=== PATIENT | female | born 1955 | race Caucasian/White ===

== ENCOUNTER 2016-08-16 10:21 | Inpatient (IN) ==
[2016-08-16] MEDS ORDERED: TYLENOL PO PRN (14:05)
--- NOTE | 2016-08-16 14:28 | Diag Imaging Result Doc PS360 ---
EXAM: CHEST-PORTABLE HISTORY: sob TECHNIQUE: AP portable at 1415 COMMENT: There are two nodules in the right upper lobe probably representing granulomata. There are no previous studies. There is no evidence of acute cardiac or pulmonary disease. IMPRESSION: No acute abnormality. Electronically signed by Skyler Alexander 08/16/2016 2:26 PM
--- NOTE | 2016-08-16 15:10 | Diag Imaging Result Doc PS360 ---
EXAM: US RENAL 2 (RETROPER) COMPLETE HISTORY: concha TECHNIQUE: Transabdominal COMMENT: The right kidney is 11 x 5.6 x 6.9 cm the left kidney 11.3 x 5.3 x 6.1 cm. There is no evidence of hydronephrosis masses or stones. There is a centimeter-sized cyst in the left kidney towards the lower pole laterally. The bladder is unremarkable and contains a Verduzco catheter. IMPRESSION: No evidence of obstructive uropathy. Electronically signed by Skyler Alexander 08/16/2016 3:08 PM
[2016-08-16 15:53] LABS: BASO% 0.8 % (0.0-0.8); EOS# 0.12 X1000 (0.0-0.7); EOS% 5.1 % (0.0-10.0); HEMATOCRIT 31.2 % (37.0-47.0); HEMOGLOBIN 11.8 g/dL (12.0-16.0); IMM GRAN# 0.06 X1000 (0.0-0.04); IMM GRAN% 2.5 % (0.0-0.5); LYMPH# 0.51 X1000 (1.2-3.4); LYMPH% 21.5 % (20.5-51.1); MANUAL DIFF NEEDED? NO; MCH 33.2 PG (27-31); MCHC 37.8 g/dL (33-37); MCV 87.9 FL (81-99); MONO# 0.26 X1000 (0.11-0.59); MPV 9.2 FL (7.4-10.4); NEUT% 59.1 % (42.2-75.2); PLT 189 X1000 (130-400); RBC 3.55 XMIL (4.2-5.4)
[2016-08-16 16:03] LABS: INR 1.16; PROTIME 12.3 Seconds (9.2-11.7); PTT 29.8 Seconds (22.0-36.0)
[2016-08-16 16:10] LABS: ALBUMIN 3.2 g/dL (3.5-5.0); CALCIUM 7.2 mg/dL (8.8-10.2); MAGNESIUM 1.3 mg/dL (1.5-2.7); POTASSIUM 3.1 mmol/L (3.5-5.1); TOTAL BILIRUBIN 0.96 mg/dL (0.20-1.00); TOTAL PROTEIN 5.8 g/dL (6.3-8.3)
[2016-08-16] MEDS ORDERED: MAGNESIUM SULFATE 2 GM/S.W.I. 2 GM/50 ML IVPB IV ONE (16:51)
[2016-08-16 17:17] LABS: IRON SATURATION 12 %; TIBC 240 ug/dL; TOTAL IRON 28 ug/dL (49-151); UNBOUND IRON 212 ug/dL (112-346)
[2016-08-16 17:59] LABS: FERRITIN 3386 ng/mL (13-150)
[2016-08-16] MEDS: NS 1,000 ML IV SCH ×3 (18:23→22:57)
[2016-08-16 18:32] LABS: AMYLASE 27 U/L (20-200); LIPASE 20 U/L (13-60)
--- NOTE | 2016-08-16 18:33 | CONSULTATION ---
DATE OF CONSULTATION: 08/16/2016 REASON FOR CONSULTATION: Acute kidney injury. HISTORY OF PRESENT ILLNESS: Ms. Serrato is a 61-year-old, white female with a history of reflux and hypertension. She cannot remember her blood pressure medication but they think it is amlodipine. She also takes omeprazole and occasional Tylenol. She states that for the last several weeks she has had severe sinusitis with foul tasting discharge. She has a nocturnal cough associated with it. In order to treat this she has been receiving amoxicillin. She had a 3 week prescription but she is really only taking it halfheartedly. She does not really follow the instructions. She took her last dose on Saturday. She states that since Saturday she has had essentially no urine output. She has also had increasing abdominal discomfort especially in the subcostal region bilaterally. The pain waxes and wanes in severity but is tender to touch. Ultimately she went to the emergency room at [facility] today because of her abdominal pain. She has not had nausea or vomiting and she has been able to eat. She has also had constipation. No other voiding symptoms and no hematuria. She has no hemoptysis with her cough. No shortness of breath, PND, orthopnea, etc. No swelling, no arthralgias, no rashes. PAST MEDICAL HISTORY: As above. HOME MEDICATIONS: As above. ALLERGIES: None. SOCIAL HISTORY: She is a half pack-a-day smoker and has been for 50 years. She uses alcohol "socially." No other substance abuse. FAMILY HISTORY: Her sister does have chronic kidney disease stage 3 but no ESRD in the family. No vasculitis known in the family. REVIEW OF SYSTEMS: Obtained and otherwise negative. PHYSICAL EXAMINATION: Vital Signs: Blood pressure 143/62, heart rate 85, respirations 14, temperature 99.8 degrees. General: She is a middle-aged woman, tearful, anxious but in no acute distress. Skin: Warm and dry without rashes. HEENT: Conjunctivae are pink. Pupils are equal. Oropharynx is clear with normal tongue, normal dentition. Neck: Supple. Trachea is midline. Neck veins are modestly distended. No obvious hepatojugular reflux. Heart: Regular without rubs or gallops. Lungs: Equal breath sounds. No crackles or wheezes. Abdomen: Mildly distended diffusely and mildly tender in the subcostal region. Soft. No guarding. bowel sounds are present. Extremities: No edema, clubbing, or cyanosis. Intact distal pulses. Neurologic Examination: Nonfocal. LABORATORY DATA: Sodium 126, potassium 3.1, chloride 86, bicarbonate 16, BUN 54, creatinine 7.6. Calcium 7.2, magnesium 1.3. AST 879, ALT 1712, alkaline phosphatase 143, albumin 3.2. INR 1.16. Hemoglobin 11.8, white blood cell count 2.37, platelets 189,000. IMPRESSION: Acute kidney injury in the context of acute hepatocellular injury attended by metabolic acidosis. She does not appear particularly volume contracted at this time. She has had essentially no urine output since she has been here. Her urinalysis performed at [facility] had 2+ protein and 3+ blood. I counseled the patient that she has severe acute kidney injury. We will give fluids overnight but if she does not have improvement in her urine output and her labs, then she will require hemodialysis. We will hold her NPO tonight in anticipation of tunnel catheter placement tomorrow. Complete complements, serologies, etc. It is very likely she will require a renal biopsy for diagnosis. Certainly she could have interstitial nephritis. I do not know the connection between that and her liver disease. I believe her abdominal pain is likely related to capsular stretch with her acutely swollen and steatotic liver. cc: Jonathan Jordan MD
[2016-08-16] MEDS: MORPHINE IV PRN ×2 (18:34→22:53)
[2016-08-16] MEDS: PEPCID IV SCH (18:38)
[2016-08-16 18:58] LABS: URINE MICRO REVIEW NEEDED? NO; URINE SOURCE CATH
[2016-08-16 19:01] LABS: BILIRUBIN URINE NEGATIVE (NEGATIVE); BLOOD URINE LARGE (NEGATIVE); COLOR YELLOW; GLUCOSE URINE NEGATIVE (NEGATIVE); LEUKOCYTES URINE LARGE (NEGATIVE); NITRITE URINE NEGATIVE (NEGATIVE); PROTEIN URINE 100 mg/dL (NEGATIVE); SP GRAVITY URINE 1.011; TURBIDITY URINE HAZY (CLEAR); UR EPITHELIAL CELLS <10 /HPF (<10); URINE BACTERIA 4+ /HPF; URINE CULTURE NEEDED? YES; URINE RBC TNTC /HPF (<10); URINE WBC TNTC /HPF (<10); UROBILINOGEN URINE NORMAL (NORMAL)
--- NOTE | 2016-08-16 19:20 | HISTORY AND PHYSICAL ---
PRIMARY CARE PROVIDER: Dr. Manolo Ling. CHIEF COMPLAINT: Unable to void or have a bowel movement for about 5 days and severe abdominal pain for 2 days. HISTORY OF PRESENT ILLNESS: Ms. Scarlet Serrato is a 61-year-old female with a minimal medical history, only consistent of hypertension, GERD, depression and a sinus infection for 2 months. She states she has been taking amoxicillin for about a week. Still complains of severe headache. Her main concern as she presented to [facility] with complaints of abdominal pain for 2 days and no urine or bowel movements for 5 days. She states that on Saturday she had diarrhea but no bowel movements since then. She started noticing that she was not having urine output. She states maybe a 3/4 cup worth of urine since Saturday. Her right upper quadrant of the abdomen has been hurting for about 2-3 days. She definitely has CVA tenderness. Radiates to the right lower quadrant. She denies any nausea or vomiting. She has stated that she has had subjective fever for about 1 day and no chills. She attempted to keep herself hydrated by drinking 4 bottles of water per day and drinking some milk. She does pass gas and she is belching. She states she has had actually a 20 pounds weight loss since April after stopping her hormones. She started having muscle cramps that started today. Upon evaluation by [facility] she was found to have a significant acute kidney injury with a creatinine of 7.6 and a BUN of 59. She also had elevated AST and ALT of 1396 and 1938. They performed a CT and per report found in the chart it showed dilated gallbladder, fatty liver, mild pre nephric stranding on the right kidney. She was transferred here for further evaluation by Nephrology. Will also ask Gastroenterology to see the patient secondary to the elevated liver enzymes. Dr. Jordan will follow her for her kidney failure. We will consult Dr. John for her leukopenia. PAST MEDICAL HISTORY: Hypertension, GERD, depression, a sinus infection for 2 months. SURGICAL HISTORY: Hysterectomy. SOCIAL HISTORY: Half pack per day for 50 years smoker. Drinks alcohol about once every 2 weeks. She lives at home alone and denies any illicit drug use. FAMILY HISTORY: Father with lung cancer. Brother with colon cancer. Grandfather with stomach cancer. Uncle with brain cancer. She has a sister with pre diabetes, CKD stage [address] Jordan and hypothyroidism. She has another sister that has a pacemaker and hypothyroidism. REVIEW OF SYSTEMS: Fourteen point review of systems were complete and all were negative except for those mentioned in above HPI. ALLERGIES: No known drug allergies. HOME MEDICATIONS: Not listed although she states that she has been taking Goody powders for her headaches. PHYSICAL EXAMINATION: VITAL SIGNS: Temperature 99.8 degrees, heart rate 81, respiratory rate 20, blood pressure 143/62, O2 saturation 97% on room air. GENERAL: Ms. Scarlet Serrato is a 61-year-old female who is very emotional and teary but is able answer all questions appropriately. HEENT: Atraumatic, normocephalic. Pupils equal, round, reactive to light. Extraocular movements intact. She has some mild tenderness underneath her eyes with palpation. Mucous membranes are very dry. NECK: No JVD or carotid bruits. CARDIOVASCULAR: S1, S2. Regular rate and rhythm. No rubs, gallops, or murmurs. PULMONARY: Clear to auscultation. Bilateral breath sounds. No accessory muscle use or work of breathing noted. GI: Distended, semi firm, tender in the right upper to lower quadrant and right CVA tenderness. Very hypoactive bowel sounds. : Verduzco catheter with minimal dark clear urine output. Bladder not palpable. EXTREMITIES: No edema noted. +2 dorsalis and radial pulses. SKIN: Warm, dry, intact. NEUROLOGIC: Alert and oriented x4. Moves all extremities equally. LABORATORY DATA: At the outside hospital she had ABGs performed, pH 7.39, pCO2 31, PO2 70, bicarb 18, base excess negative 5.6 with a saturation of 93%. At the outside hospital her CBC revealed white blood cell 1.9, hemoglobin and hematocrit 12 and 33, platelet count 183, 000. At the outside hospital her BMP revealed a sodium 141, potassium 2.8, BUN 59, creatinine 7.6, glucose 111. At the outside hospital her total bilirubin was 1.3, her AST was 1396, her ALT was 1938. Labs repeated upon admission revealed white blood cell 2.3. Hemoglobin 11.8, hematocrit 31.2, platelet count 189,000. INR is 1.16. PTT is 29.8. Sodium 126, potassium 3.1 BUN 54, creatinine 7.6, glucose 84, calcium 7.2 magnesium 1.3. Iron is 28. Total iron binding capacity is 240, percent saturation 12 and saturated iron is 212. Ferritin level is 3386. Total bilirubin 0.96. AST is 879, ALT is 1712, alkaline phosphatase is 143. CK is 44, troponins less than 0.01. Total protein is 5.8, albumin is 3.2. Vitamin B12 was greater than 2000 and folate is 13.4. Still awaiting urinalysis and other urine studies. IMAGING: There was an abdominal pelvic CT without contrast at the outside hospital which revealed dilated gallbladder, fatty liver, mild pre nephric stranding on the right kidney. Imaging performed here: Chest x-ray, no acute abnormalities. Renal ultrasound : No evidence of obstructive uropathy. No evidence of hydronephrosis, masses or stones. There is a cm sized cyst in the left kidney towards the lower pole laterally. Bladder is unremarkable. EKG pending. Full abdominal ultrasound pending. ASSESSMENT AND PLAN: 1. Acute kidney injury with a creatinine of 7.6 at the outside hospital and repeated here continues to be 7.6, BUN 54. Apparently she has not had any urine output for 5 days. We will do aggressive IV fluid hydration. Dr. Jordan has been consulted. 2. Acute abdominal pain for 2 days with dilated gallbladder on the CT scan at the outside hospital and significant transaminitis with the right upper quadrant abdominal pain. GI has been consulted. Amylase, lipase has been ordered. Acetaminophen level ordered. Also a hepatitis profile has been ordered. 3. Transaminitis. See number 2. Will continue with IVF hydration. 4. Hypertension. Will hold off on medications for now. 5. Gastroesophageal reflux disease. Will do IV Pepcid. 6. Depression. No medications for now. 7. Leukopenia. Will consult Dr. John with Hematology for further recommendations and workup. 8. Iron deficiency anemia. Mild in nature with a hemoglobin of 12, hematocrit 33. Once taking in p.o. we will start on oral iron supplementation. 9. Sinus infection for 2 months. She just recently finished amoxicillin 1 week course. She stated that she had only 1 dose left. 10. Complains of migraine headache 10/10 pain. With her sinus congestion we will order morphine p.r.n. for her abdominal and her migraine. Also will add a head CT to evaluate sinuses. 11. Deep venous thrombosis prophylaxis will be SCDs and VIDAL. 12. Gastrointestinal prophylaxis will be Pepcid IV q.12 hours 20 mg. 13. Hypomagnesemia. Magnesium was 1.3. We will give 2 g of magnesium IV x1. 14. Hyponatremia likely secondary to severe dehydration. We will give normal saline at 150 an hour. 15. Hypokalemia. Given her acute kidney injury will hold off on potassium supplementation for now and will follow with EKG. She has had no complaints of palpitations. Dictated by MELITON Brenner for Scott Lutz MD cc: MELITON Brenner MD Dr. Putman MTDD
--- NOTE | 2016-08-16 19:50 | CONSULTATION ---
DATE OF CONSULTATION: 08/16/2016 HISTORY OF PRESENT ILLNESS: This is a 61-year-old female followed by Dr. Jordan who has had worsening of her renal function over the last few days. She has been in the hospital now with headache, electrolyte abnormalities, volume overload. She states she has had a sinus infection for the last 5 weeks. She has been taking antibiotics and a large amount of Goody powder for this at home. She is uninsured so has been unable to see a doctor. MEDICAL HISTORY: High blood pressure, COPD. PAST SURGICAL HISTORY: She had a hysterectomy. No vascular procedures. She denies anticoagulation. SOCIAL HISTORY: She smokes half pack a day. Occasional alcohol. FAMILY HISTORY: She has a brother with colon cancer. Father with lung cancer. REVIEW OF SYSTEMS: Ten point negative except for what is mentioned in the HPI. PHYSICAL EXAMINATION: Vital Signs: Temperature is 99.8 degrees, pulse in 70s to 80s, blood pressure 143/60, O2 saturation 97% on room air. General: She is alert, obviously uncomfortable. She said she has a headache. Neurologic: She is intact. Cardiovascular: Normal rate, regular rhythm. Pulmonary: No increased work of breathing. Abdomen: Distended and mildly tender throughout but obviously no peritonitis. Integumentary: Warm, dry without jaundice. No rashes. Extremities: Trace lower extremity edema. Her upper extremities are well- perfused without edema. Skin: No scars. No cervical masses on head and neck examination. LABS: hematocrit 31, platelets 189,000. INR is 1.16. Sodium is low at 136, potassium low at 3.1, creatinine 7.6, glucose is 84, bilirubin 0.96. AST elevated at 879. ALT 1712. Alkaline phosphatase 143. Troponins were normal. Renal ultrasound shows no evidence of obstruction. Chest x-ray: No acute abnormality. ASSESSMENT/PLAN: A 61-year-old female with multiple medical issues. She has acute on chronic renal dysfunction, elevated transaminases, leukopenia. She is undergoing extensive medical workup at this point. Dr. Jordan is concerned that she will need long-term dialysis and asked me to place a tunnel catheter if her labs do not look better tomorrow. I will tentatively post her. I have discussed risks, benefits, alternatives including bleeding, infection, damage to vascular structures surrounding her pneumothorax. She consents to tunnel catheter placement should Dr. Jordan decide this is necessary tomorrow. I will defer further medical management to hospitalist. Dr. John has been consulted and Dr. Harp regarding her liver enzymes. We will follow up on this workup. cc: Celi Watt MD [facility]
[2016-08-16 20:15] LABS: UR CREAT RANDOM 95.3 mg/dL (11-20)
--- NOTE | 2016-08-16 20:54 | Diag Imaging Result Doc PS360 ---
EXAM: PARANASAL SINUSES TECHNIQUE: INDICATION: migraine; sinus infection x 2 months COMPARISON: None. FINDINGS: There is extensive right maxillary and right ethmoid sinus mucosal disease with subtotal opacification. There is somewhat milder mucosal thickening involving the right frontal sinus and much milder mucosal thickening involving the right sphenoid sinus and floor of the left maxillary sinus. The right ostiomeatal unit is completely obstructed by thickened mucosa. The left ostiomeatal unit is patent. The mastoid air cells are clear. There are degenerative changes at the right TMJ. The bony structures are grossly intact. IMPRESSION: 1.Extensive paranasal sinus mucosal disease, mainly involving the right maxillary sinus and right ethmoid sinuses, which exhibit subtotal opacification. 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 Electronically signed by Jesse Tyler 08/16/2016 8:51 PM
[2016-08-16] MEDS ORDERED: HEPARIN SUBQ SCH (21:00)
[2016-08-17] MEDS: MORPHINE IV PRN ×6 (02:01→21:54)
[2016-08-17] MEDS: NS 1,000 ML IV SCH (05:02)
--- NOTE | 2016-08-17 05:04 | EKG Report ---
Test Performed on : 08/16/2016 3:04:29 PM Test Reason : chest pain Blood Pressure : / mmHG Vent. Rate : 077 BPM Atrial Rate : 077 BPM P-R Int : 172 ms QRS Dur : 084 ms QT Int : 430 ms P-R-T Axes : 061 026 037 degrees QTc Int : 486 ms Normal sinus rhythm. Prolonged QT Abnormal ECG No previous ECGs available Confirmed by Michell Olmstead MD ([id number]) on 08/17/2016 1:01:51 PM
[2016-08-17] MEDS: PEPCID IV SCH ×3 (05:54→17:15)
[2016-08-17] MEDS: SODIUM CHLORIDE 0.9% INJ SCH ×2 (05:54→17:12)
[2016-08-17 06:22] LABS: BASO% 0.6 % (0.0-0.8); EOS# 0.15 X1000 (0.0-0.7); EOS% 4.8 % (0.0-10.0); HEMATOCRIT 30.8 % (37.0-47.0); HEMOGLOBIN 11.5 g/dL (12.0-16.0); IMM GRAN# 0.05 X1000 (0.0-0.04); IMM GRAN% 1.6 % (0.0-0.5); LYMPH# 0.77 X1000 (1.2-3.4); LYMPH% 24.8 % (20.5-51.1); MANUAL DIFF NEEDED? YES; MCH 33.2 PG (27-31); MCHC 37.3 g/dL (33-37); MONO# 0.35 X1000 (0.11-0.59); MONO% 11.3 % (1.7-9.3); MPV 9.5 FL (7.4-10.4); NEUT% 56.9 % (42.2-75.2); PLT 204 X1000 (130-400); RBC 3.46 XMIL (4.2-5.4)
[2016-08-17 06:34] LABS: INR 1.06; PROTIME 11.2 Seconds (9.2-11.7)
[2016-08-17 06:45] LABS: ALBUMIN 3.1 g/dL (3.5-5.0); CALCIUM 7.1 mg/dL (8.8-10.2); MAGNESIUM 2.2 mg/dL (1.5-2.7); POTASSIUM 3.2 mmol/L (3.5-5.1); TOTAL BILIRUBIN 0.97 mg/dL (0.20-1.00); TOTAL PROTEIN 5.7 g/dL (6.3-8.3)
[2016-08-17 06:46] LABS: ALBUMIN 2.9 g/dL (3.5-5.0); CALCIUM 7.1 mg/dL (8.8-10.2)
[2016-08-17 06:49] LABS: FREE T4 0.95 ng/dL (0.93-1.70)
[2016-08-17 07:06] LABS: BANDS 2 % (0-1); EOS 6 % (1-10); LYMPHS 36 % (21-51); MONO 7 % (1-9)
[2016-08-17] MEDS ORDERED: NS 2,000 ML MISC PRN (07:53)
[2016-08-17] MEDS ORDERED: PRILOSEC PO SCH (09:00)
--- NOTE | 2016-08-17 09:05 | Diag Imaging Result Doc PS360 ---
EXAM: US ABDOMEN-COMPLETE HISTORY: abnormal liver enzymes TECHNIQUE: Abdominal ultrasound COMMENT: The study is suboptimal due to the patient's body habitus. The liver is hyperechoic. The gallbladder is clear and nontender. There is no evidence of biliary dilatation, the common bile duct measuring 4 mm. The pancreas is obscured. There is antegrade flow in the portal vein. The kidneys are without evidence of hydronephrosis or mass. There is a cyst present on the left in the upper pole region measuring a centimeter to 11 mm in size. The spleen is not enlarged. There are no abnormal fluid collections. The aorta and inferior vena cava are normal in appearance where there are visible. IMPRESSION: Hepatic steatosis. Left renal cyst. Electronically signed by Skyler Alexander 08/17/2016 9:03 AM
[2016-08-17] MEDS ORDERED: NS 2,000 ML ONE (09:18)
[2016-08-17] MEDS ORDERED: NEXIUM IV ONE (09:35)
[2016-08-17] MEDS ORDERED: SODIUM CHLORIDE 0.9% INJ ONE (09:35)
[2016-08-17] MEDS ORDERED: TUMS PO PRN (09:40)
[2016-08-17] MEDS: ZOSYN 2.25 GM/NS 2.25 GM/50 ML IVPB IV SCH ×2 (09:49→12:13)
[2016-08-17] MEDS: CELEXA PO SCH (09:50)
[2016-08-17] MEDS: PERICOLACE PO SCH ×2 (09:53→21:19)
[2016-08-17 11:20] LABS: HEPATITIS PROFILE ACUTE SEE COMMENTS
[2016-08-17] MEDS: POTASSIUM CHLORIDE 20 MEQ/SWI 20 MEQ/100 ML IVPB IV SCH ×5 (11:34→18:11)
[2016-08-17] MEDS ORDERED: HEPARIN ONE (11:46)
[2016-08-17] MEDS ORDERED: XYLOCAINE 1%/EPI 1:100,000 ONE (11:46)
[2016-08-17] MEDS ORDERED: NS 250 ML ONE (11:47)
[2016-08-17] MEDS ORDERED: AMIDATE ONE (11:49)
[2016-08-17] MEDS ORDERED: QUELICIN (DOSE) ONE (11:50)
[2016-08-17] MEDS ORDERED: XYLOCAINE-MPF 2% ONE (11:50)
--- NOTE | 2016-08-17 12:06 | PROGRESS NOTE ---
DATE: 08/17/2016 SUBJECTIVE: Patient reports she is still not making too much urine and abdominal pain is better, although sometimes it hurts in the right upper quadrant. Denies any fever, chills, diarrhea. OBJECTIVE: Vital Signs: Temperature 98.1 degrees, heart rate 71, respiratory rate 18, blood pressure 124/64, O2 saturation 100% on room air. General: This is a chronically ill-looking, frail, and looking older than her age, 61-year-old female lying in bed in no acute distress. HEENT: Head is normocephalic and atraumatic. Anicteric sclerae and pale conjunctivae. Mucous membranes moist. Neck: Supple. No JVD noted. No carotid bruits. No lymphadenopathy. No thyromegaly. Cardiovascular: S1 and S2 heard. No murmurs, gallops, or rubs. Regular rate and rhythm. Respiratory: Clear bilaterally to auscultation. No work of breathing or using accessory muscles. Abdomen: A little bit distended and mildly tender to palpation in the right lower quadrant and the right upper quadrant. There are no signs of peritoneal irritation. Bowel sounds present. No organomegaly. Extremities: No clubbing, cyanosis, or edema. Peripheral pulses present in both legs. Neurological: Patient is alert and oriented x3. Able to move her extremities. Cranial nerves 2-12 grossly normal. LABORATORY DATA: White cell count 3.11, hemoglobin 11.5, hematocrit 30.8, platelets 204,000. Sodium 124, potassium 3.0, chloride 88, bicarbonate 15, BUN 57, creatinine 7.4, ALT 479, AST 1289, with albumin 2.9. ASSESSMENT AND PLAN: 1. Acute kidney injury. Creatinine today in comparison with yesterday is 7.4, which is basically unremarkable. Patient is still anuric, not making any more urine since yesterday, even though she is on IV fluids. Dr. Jordan had evaluated this patient yesterday and the plan initially was to place a tunneled catheter for dialysis if there is no change in renal function, which is happening now. Dr. Watt has been consulted and hopefully that IV access will be placed today. 2. Transaminitis. Yesterday, besides the renal problem, the patient was found to have a very elevated transaminase of about 1000 ALT and also an 800 AST. The hepatitis profile is still pending and the transaminases are getting better, but are still higher. We are checking lipase and amylase, and those are normal. Acetaminophen level is also normal. Gastroenterology has been consulted and awaiting further input. 3. Hypertension. In the setting of severe transaminitis and acute kidney injury , would prefer to hold all antihypertensive medication right now. 4. Gastroesophageal reflux disease. We will give Pepcid. 5. Depression. Patient is on home medications, now. 6. Leukopenia. Dr. John from Hematology-Oncology has been consulted, in any case the white cell count has increased today. Will follow recommendations. 7. Sinusitis. Patient has been started on IV antibiotics, in this case Zosyn. The CT done here confirmed that diagnosis. 8. Deep vein thrombosis prophylaxis with SCDs. 9. Gastrointestinal prophylaxis with Pepcid. 10. Hyponatremia, probably secondary to severe dehydration. Although the patient is on normal saline, the sodium is still low. We will continue with the same management. cc: Scott Lutz MD MTDD
[2016-08-17] MEDS ORDERED: ROBINUL ONE (12:08)
[2016-08-17] MEDS ORDERED: ZOFRAN ONE (12:08)
--- NOTE | 2016-08-17 12:14 | PROGRESS NOTE ---
DATE: 08/17/2016 TIME SEEN: 714 SUBJECTIVE: Ms. Serrato is resting quietly in bed. She continues to have midepigastric abdominal discomfort. Otherwise, she denies chest pain or increased work of breathing. OBJECTIVE: Her most recent vital signs are temperature 98.1 degrees, blood pressure 124/64, heart rate 71, respirations 18. She is currently on room air. Last recorded saturation was 100%. She has had 1953 in. She has had 340 out per Verduzco catheter. LABORATORIES: Sodium 124, potassium 3, chloride 88, CO2 of 15, BUN 57, creatinine 7.4, glucose 92. Her anion gap is 22. Calcium 7.1, phosphorus 4.5, magnesium 2.2. Her white count is 3.11, hemoglobin 11.5, hematocrit 30.8, platelet count 204,000. Patient has had an MAGED screen, which is negative. Complement C3 is low. Complement C4 is low at 10. She continues to have an ANCA pending. Hepatitis profile has been drawn, pending results. She has had a glomerular basement membrane as a send-out. It has been received. Blood cultures are currently pending. PHYSICAL EXAMINATION: General: This is a 61-year-old white female. She is resting in bed. She appears chronically ill. She is in no acute distress unless she has movement. She continues with a general cough, which creates abdominal distress. HEENT: Normocephalic, atraumatic. Conjunctivae pink. She has STEFFANY. Mucous membranes are moist. Neck: Supple. Trachea midline. She has trace JVD. Cardiovascular: Regular rate and rhythm. She is without murmur or gallop. Lungs: Clear to auscultation anteriorly. Equal excursion on room air. Abdomen : Mid epigastric pain across top of her abdominal cavity. Positive bowel sounds. This remains soft. No guarding is noted. Extremities: No edema. No clubbing or cyanosis. Genitourinary: Patient is making urine per Verduzco catheter. This is dark mcallister in collar. Neurologic: She is alert and oriented x3. ASSESSMENT AND PLAN: 1. Acute kidney injury in the context of acute hepatocellular injury associated with metabolic acidosis. Patient's BUN and creatinine have continued to rise, we have discussed with the patient yesterday in regards to placement of a tunnel catheter today for access to start on dialysis. We will place her on a 3 K bath. She is to dialyze for 2 hours. We will attempt to pull 1-2 L of ultrafiltration with gentle flow. We will again plan for dialysis in the a.m. We have discussed with the patient that secondary to no urine out and low complements that are noted, that it is very likely she will require a renal biopsy, possibly as soon as Saturday morning. Patient states that she understands and is agreeable to proceed. Dr. Watt has been consulted and patient is on the surgery schedule. 2. Electrolytes. She continues with hyponatremia and hypokalemia, again with correction on dialysis. 3. Acidosis, again correction on dialysis related to #1. 4. Anemia. This is close to target. 5. Positive CT for sinusitis. This is followed by the primary care team. Patient is currently on renal-dosed Zosyn. 6. Esophageal reflux associated with acute abdominal pain for 2 days, with a dilated gallbladder on an outside CT scan. Gastroenterology is currently consulted and following. I would to thank you for allowing us to follow with this patient. Seen, data reviewed, discussed with Josr Gregory on 08/17/16. I agree with the above assessment and plan of care. rg Dictated by MELITON South for Jonathan Jordan MD cc: MELITON South MD [facility]
[2016-08-17] MEDS: MORPHINE ONE ×2 (13:11→13:20)
[2016-08-17] MEDS ORDERED: MORPHINE ONE (14:56)
--- NOTE | 2016-08-17 15:20 | OPERATIVE NOTE ---
PROCEDURE DATE: 08/17/2016 PREOPERATIVE DIAGNOSIS: End-stage renal disease. POSTOPERATIVE DIAGNOSIS: End-stage renal disease. PROCEDURES PERFORMED: 1. Ultrasound-guided right internal jugular vein PermCath placement. 2. Fluoroscopy less than 1 hour. COMPLICATIONS: None. ANESTHESIA: General. INDICATIONS: A 61-year-old female who presented with anuria, electrolyte abnormalities consistent with [id number] renal failure and Dr. Jordan planned to start dialysis and needed a tunneled catheter for access. He anticipates a prolonged recovery of her renal function. OPERATIVE FINDINGS: 1. Ultrasound examination of the right neck showed a dilated, compressible, internal jugular vein and, otherwise, normal vascular anatomy. 2. Final fluoroscopic images showed good position of the tip of the catheter in the superior vena cava-atrial junction with no kinking of the catheter along the line. No evidence of pneumothorax or postoperative complication. OPERATIVE NOTE: Risks, benefits, and alternatives discussed with the patient and family, and they consented to procedure. She was seen preoperatively and surgery to be performed was confirmed. She was taken to operating room and placed in supine position. General anesthesia induced without complication. Her bilateral neck and chest were prepped with Betadine solution and draped in usual fashion. A time-out was performed. We performed a focused ultrasound of the right neck after establishing adequate venous anatomy, we used a pink introducer needle to access the right internal jugular vein on the first pass and dark nonpulsatile venous blood was noted to return. We then threaded the wire easily and confirmed with fluoroscopy that this was on the right side of the heart. After this, I made a skin lenore. I made an incision approximately a fingerbreadth or 2 below the clavicle, tunneled the catheter to the incision in the neck. This was a 13 cm from tip- to-curve catheter dual-lumen that we then used a dilator introducer sheath was advanced using Seldinger technique under fluoroscopic guidance. We removed the dilator and the wire and threaded the catheter and peeled away the introducer. We confirmed that this was in good position. Both ports withdrew blood easily and flushed briskly. We did flush these with dilute heparinized saline. Closed the incision in the neck with a 4-0 Monocryl. I made a pursestring suture around the exit site of the catheter with a 4-0 Monocryl and secured it with a 2-0 nylon. Sterile dressing was applied. Dermabond to the incision in the neck. She tolerated the procedure well and there were no complications. cc: MD JACKELIN Santoyo
[2016-08-17] MEDS ORDERED: POTASSIUM CHLORIDE 20 MEQ/SWI 20 MEQ/100 ML IVPB IV SCH (16:30)
[2016-08-17] MEDS: PERIDEX MT SCH (21:19)
[2016-08-18] MEDS: ZOSYN 2.25 GM/NS 2.25 GM/50 ML IVPB IV SCH ×6 (00:03→23:32)
[2016-08-18] MEDS: MORPHINE IV PRN ×8 (01:05→23:51)
[2016-08-18 05:30] LABS: HEMOGLOBIN 10.8 g/dL (12.0-16.0); MCH 33.9 PG (27-31); MPV 8.8 FL (7.4-10.4); RBC 3.19 XMIL (4.2-5.4)
[2016-08-18] MEDS: SODIUM CHLORIDE 0.9% INJ SCH (05:56)
[2016-08-18] MEDS: PEPCID IV SCH ×3 (05:56→18:17)
[2016-08-18 06:04] LABS: ALBUMIN 3.1 g/dL (3.5-5.0); CALCIUM 7.6 mg/dL (8.8-10.2); POTASSIUM 3.4 mmol/L (3.5-5.1)
[2016-08-18] MEDS ORDERED: NS 2,000 ML MISC PRN (07:01)
[2016-08-18] MEDS ORDERED: HEPARIN IV PRN (07:01)
[2016-08-18] MEDS ORDERED: TIGHT: 0.2 ML/HR MISC PRN (07:01)
[2016-08-18] MEDS: PROTONIX PO SCH (07:24)
[2016-08-18] MEDS ORDERED: HEPARIN ONE (08:10)
[2016-08-18] MEDS ORDERED: NS 2,000 ML ONE (08:10)
[2016-08-18] MEDS: PERICOLACE PO SCH ×3 (08:12→21:35)
[2016-08-18] MEDS: PERIDEX MT SCH ×3 (08:13→21:36)
[2016-08-18] MEDS: CELEXA PO SCH (08:13)
--- NOTE | 2016-08-18 08:52 | CONSULTATION ---
DATE OF CONSULTATION: 08/18/2016 REQUESTING PHYSICIAN: Dr. Scott Lutz. PRIMARY CARE PROVIDER: Dr. Manolo Ling. We appreciate this consult. CHIEF COMPLAINT: Leukopenia. HISTORY OF PRESENT ILLNESS: Ms. Scarlet Serrato is a 61-year-old, female, with very little significant medical history other than hypertension, gastroesophageal reflux disease, and depression. The patient reports that she has been taking amoxicillin for approximately 1 week secondary to presumed urinary tract infection. She presented to [facility] with complaints of abdominal pain for 2 days and very little urine output with no bowel movement for 5 days. She also reported that she had right upper quadrant abdominal pain for 3 days with radiation to her right lower quadrant. The patient denied any nausea or vomiting. She also reported a questionable fever with no chills. She did not take her temperature. The patient has had a 20 pound weight loss since April after discontinuing hormone therapy. The patient was found to be in acute kidney injury at [facility] with a creatinine of 7.6 and a BUN of 59. Additionally, she had elevated AST and ALT of [address] of the abdomen revealed dilated gallbladder, fatty liver, mild pre-nephric stranding on the right kidney. The patient was transferred to [facility] for further evaluation by nephrology and gastroenterology. Dr. Jordan is currently following concerning her kidney failure. She did undergo right IJ PermCath yesterday with dialysis following. We are consulted for the patient's leukopenia with a white blood cell count of 1.9 upon presentation. PAST MEDICAL HISTORY: 1. Hypertension. 2. Gastroesophageal reflux disease. 3. Depression. 4. Sinus infection for 2 months. SURGICAL HISTORY: Hysterectomy. SOCIAL HISTORY: The patient is a pack-a-day smoker x50 years. She drinks alcohol socially approximately every 2 weeks. She does not use illicit drugs. She lives at home alone. FAMILY HISTORY: Significant for lung cancer in her father, colon cancer in her brother, stomach cancer in her grandfather, brain cancer in her uncle. No other significant oncologic or hematologic history. MEDICATIONS ON ADMISSION: Goodys Powder. ALLERGIES: The patient has no known drug allergies. REVIEW OF SYSTEMS: Complete review of systems is negative except for what is mentioned in the HPI. PHYSICAL EXAMINATION: General: Ms. Serrato is a very pleasant, 61-year-old, female, lying supine in bed in no immediate distress. Vital Signs: Temperature 98.3, blood pressure 124/56, heart rate 73, respirations 16, O2 saturation is 100% on room air. HEENT: Normocephalic, atraumatic. Mucous membranes are slightly pale and moist. Sclerae is anicteric. Extraocular movements intact. Neck: Supple. Lungs: Clear to auscultation bilaterally. Chest expansion is equal bilaterally. Cardiovascular: S1, S2 is heard without murmur, rub, or gallop. Abdomen: Soft, distended. Tender diffusely. Bowel sounds are decreased throughout. Extremities: Without clubbing, cyanosis, or edema. Dermatologic: No rashes, bruises, or lesions. Neurologic: The patient is slightly somnolent but awake and oriented x3. She has no focal deficit at this time. LABORATORY DATA: Hemoglobin 10.8, hematocrit 30.0, white blood cell count 5.07 , platelets 223,000. Sodium 126, potassium 3.4, chloride 89, CO2 of 19. BUN 40, creatinine 5.9, glucose is 92. Phos is 3.9, calcium 7.6. Urine cultures are currently pending. Blood culture show no growth at 48 hours. Bilirubin on 08/17/2016 is 0.97. AST 479. ALT 1289. Alkaline phosphatase 144, lactate dehydrogenase 315. IMAGING STUDIES: CT of the sinuses revealed extensive paranasal sinus mucosal disease with right TMJ arthropathy. ASSESSMENT AND PLAN: 1. Leukopenia with a presenting white blood cell count of 2.37 on 08/16/2016 and white blood cell count has improved to 5.07. Leukopenia is thought to be secondary to acute kidney injury which is now found to be end-stage renal disease. The patient is status post dialysis at this time and, again, has had an improvement in her white blood cell count to 5.07. We will monitor CBC. 2. Acute kidney injury, status post right IJ PermCath and dialysis yesterday. Dr. Jordan is currently following. CMP is being monitored daily. 3. Acute abdominal pain with dilated gallbladder on CT, as well as transaminitis. The patient is being followed by gastroenterology. 4. Hypertension. The patient is not currently on medications. She is currently on dialysis with a blood pressure of 124/56. 5. Gastroesophageal reflux disease, on IV Pepcid, with good control of symptoms. 6. Depression. The patient is not currently on medications. Her affect is currently bright. 7. We will follow along with you and make further recommendations pending outcomes. The above reflects a history exam, assessment and plan of Dr. John. Dictated by MELITON Cantrell for Lillian John MD cc: MELITON Cantrell MD Cesar Garcia-Rodriguez, MD I have seen and examined the patient and agree with the above note. Lillian BENÍTEZ
[2016-08-18 09:46] LABS: ALBUMIN 3.2 g/dL (3.5-5.0); DIRECT BILIRUBIN 0.6 mg/dL (0.00-0.20); TOTAL BILIRUBIN 0.84 mg/dL (0.20-1.00); TOTAL PROTEIN 5.6 g/dL (6.3-8.3)
--- NOTE | 2016-08-18 13:09 | PROGRESS NOTE ---
DATE: 08/18/2016 SUBJECTIVE: Ms. Serrato is resting quietly in bed. She is waiting to eat her breakfast. She has just received a clear liquid diet. She denies chest pain. Abdominal pain is improving slightly. No increased work of breathing. OBJECTIVE: Her most recent vital signs are temperature 98.3 degrees, blood pressure 119/54, heart rate 74, respirations 16. She is on room air. Last recorded saturation 100%. She has had 850 in. She has had 2035 out with 1.7 L on dialysis. Urine output per Verduzco catheter has improved at 30. This is more darkened yellow than mcallister colored. LABS: Sodium 126, potassium 3.4, chloride is 89, CO2 19, BUN 40, creatinine 5.9, glucose 92. Anion gap 18. Calcium 7.6, phosphorus 3.9, albumin 3.1. White count 5.07, hemoglobin 10.8, hematocrit 30, platelet count 223,000. Blood cultures are negative. Urine cultures are still pending. Preliminary indicates gram-negative rods. PHYSICAL EXAMINATION: General: This is a 61-year-old white female. She appears chronically ill. She is in no acute distress. Skin: Warm and dry. HEENT: Normocephalic, atraumatic. Conjunctivae pink. She has STEFFANY. Mucous membranes moist. Neck: Supple. Trachea midline. She has trace JVD. Cardiovascular: Regular rate and rhythm. She is without murmur or gallop. Lungs: Clear to auscultation anteriorly. Equal excursion on room air. Abdomen: Soft, nontender today. Positive bowel sounds. Genitourinary: Not inspected. Verduzco catheter is in place. Improved urine out. Extremities: No edema. No clubbing or cyanosis. Neurological: She is alert and oriented x3. ASSESSMENT AND PLAN: 1. Acute kidney injury in the context of acute hepatocellular injury associated with metabolic acidosis. Patient has a tunnel catheter to the right upper chest wall. She had 1 treatment of dialysis yesterday for 2 hours. She tolerated this well. We are planning on dialysis today. We will place her on a 3 K bath. She is to dialyze for 3.5 hours. We will attempt to pull 2-3 L of ultrafiltration as tolerated. Patient's urine output has improved. We will continue to monitor. She has no IV fluids infusing at this time. Tolerating p.o. well. 2. Electrolytes. Patient continues with hyponatremia again with correction on dialysis. She has mild hypokalemia again, with correction on dialysis. 3. Acid-base balance. Patient remains in metabolic acidosis. Her anion gap is closing, again correction on dialysis. 4. Anemia. This remains stable. 5. Positive urinary tract infection with gram-negative rods. Patient remains on Zosyn until culture complete. This is renally dosed. No indications for changes. I would to thank you for allowing us to follow with this patient. Dictated by MELITON South for Jonathan Jordan MD cc: MELITON South MD
[2016-08-18] MEDS: TESSALON PO SCH ×3 (16:15→21:36)
--- NOTE | 2016-08-18 17:12 | PROGRESS NOTE ---
DATE: 08/18/2016 SUBJECTIVE: Patient reports feeling fine. Noted not making too much urine.Vital Signs: Temperature 98.8 degrees, heart rate 93, respiratory rate 20, blood pressure 104/88, O2 saturation 100% on room air. General: This is a chronically ill-looking and frail older than her age 60-year-old female lying in bed in no acute distress. HEENT : Head is normocephalic, atraumatic. Anicteric sclerae and pale conjunctivae. Mucous membranes moist. Neck: Supple. No JVD noted. No carotid bruits. No lymphadenopathy. No thyromegaly. Cardiovascular: S1, S2 heard. No murmurs, gallops, or rubs. Regular rate and rhythm. Respiratory: Clear bilaterally to auscultation. No work of breathing or using accessory muscles. Abdomen: A little bit distended, mild tender to palpation, bowel sounds present. No organomegaly. Extremities: No clubbing, cyanosis or edema. Peripheral pulses present in both legs. Neurologic: Patient alert, oriented x3. Moves 4 extremities. LABORATORY DATA: Reviewed. ASSESSMENT AND PLAN: 1. Acute kidney injury requiring hemodialysis. Patient is still not making urine and today she had 2nd session of dialysis which the patient did tolerate very well. Will continue with the same management. 2. Transaminitis. Although we do not know exactly what caused this problem the ALT and AST continues to go down. Hepatitis panel is completely negative. Acetaminophen levels returned also normal. Gastrointestinal has been consulted but we have not seen any notes in the chart, 3. Hypertension. Blood pressure stable, continue with same management. 4. Leukopenia. Dr. John from Hematology-Oncology been consulted and told the white cell count has returned to normal limits. 5. Chronic sinusitis. Has been started on antibiotics and will continue with those by now. 6. Hyponatremia. Sodium still low. Will continue with IV fluids. cc: Scott Lutz MD [facility]
[2016-08-19] MEDS: MORPHINE IV PRN ×5 (06:09→21:29)
[2016-08-19] MEDS: PEPCID IV SCH ×3 (06:10→19:20)
[2016-08-19] MEDS: PROTONIX PO SCH (06:10)
[2016-08-19 06:31] LABS: HEMATOCRIT 30.4 % (37.0-47.0); HEMOGLOBIN 10.6 g/dL (12.0-16.0); MCH 33.5 PG (27-31); MCHC 34.9 g/dL (33-37); MCV 96.2 FL (81-99); MPV 8.8 FL (7.4-10.4); RBC 3.16 XMIL (4.2-5.4)
[2016-08-19 06:46] LABS: ALBUMIN 3.1 g/dL (3.5-5.0); DIRECT BILIRUBIN 0.4 mg/dL (0.00-0.20); TOTAL BILIRUBIN 0.72 mg/dL (0.20-1.00)
[2016-08-19 07:15] LABS: ALBUMIN 3.3 g/dL (3.5-5.0); CALCIUM 7.6 mg/dL (8.8-10.2); POTASSIUM 3.8 mmol/L (3.5-5.1)
--- NOTE | 2016-08-19 07:40 | PROGRESS NOTE ---
DATE: 08/19/2016 CHIEF COMPLAINT: Sore. HISTORY OF PRESENT ILLNESS: Ms. Serrato reports that she is sore from her dialysis catheter placement and sore in her abdomen from coughing. She is coughing up thick green -yellow sputum. She denies any new complaints otherwise. PHYSICAL EXAMINATION: Vital signs: Temperature is 99.6 degrees, pulse 84, respiratory rate 19, blood pressure 131/57, O2 saturation 93% on room air. General: This is a chronically ill- appearing, woman in no acute distress. Eyes: Sclerae are anicteric. Cardiovascular: Regular rate and rhythm. Normal S1, S2. No murmurs, rubs, or gallops. Pulmonary: Coarse bilateral breath sounds with scattered rhonchi. No wheezes or rales. Gastrointestinal: Abdomen is soft, nontender, nondistended with normoactive bowel sounds. Extremities: No clubbing, cyanosis, or edema. There are 2+ pulses x4. Neurologic: Alert and oriented x3. No focal deficits. Gait is not assessed as the patient is in the bedside. LABORATORY DATA: White count 5.3, hemoglobin 10.6, platelet count 240,000, AST 97, ALT 588, alkaline phosphatase 204, total protein 6, albumin 3.1. Thyroid function tests are normal. B12 and folic acid are adequate. Amylase and lipase are normal at 27 and 20 respectively. MAGED screen was negative. ANCA was negative. Hepatitis panel was negative. ASSESSMENT AND PLAN: 1. Leukopenia: Her white count is normal 5.3. Likely related to acute illness. Continue to monitor and workup further as an outpatient if her white count becomes low again despite supportive care. We will sign off at this time and see her as needed. 2. Acute hepatitis: Workup ongoing. Patient's family did report that she was drinking daily vodka with water. Potentially alcohol induced. Continue to monitor. 3. Anemia: Her labs are consistent with anemia of chronic disease. Correct underlying issues. I would not recommend iron repletion at this time given her elevated ferritin. Will reassess as an outpatient. 4. Renal failure. She continues on daily dialysis per Dr. Jordan. Continue to monitor. cc: MD Scott Storey MD I have seend and examined the patient and agree with the above note. Indigo John MD MTDD
[2016-08-19] MEDS: CELEXA PO SCH (09:27)
[2016-08-19] MEDS: PERIDEX MT SCH ×3 (09:27→21:08)
[2016-08-19] MEDS: TESSALON PO SCH ×4 (09:27→21:08)
[2016-08-19] MEDS: PERICOLACE PO SCH ×3 (09:27→21:08)
[2016-08-19] MEDS: ROCEPHIN 1 GM/NS 1 GM/50 ML IVPB IV SCH (09:28)
--- NOTE | 2016-08-19 11:46 | PROGRESS NOTE ---
DATE: 08/19/2016 SUBJECTIVE: Patient reports feeling fine. Just mild cough but no fever or chills reported. OBJECTIVE: Vital Signs: Temperature 98.7 degrees, heart rate 77, respiratory rate 18, blood pressure 114/59. O2 saturation 97% on room air. General: This is a chronically ill-looking and frail older than her age 60-year-old, female lying in bed, in no acute distress. HEENT: Head is normocephalic, atraumatic. Anicteric sclerae and pale conjunctivae. Mucous membranes moist. Neck: Supple. No JVD noted. No carotid bruits. No lymphadenopathy. No thyromegaly. Cardiovascular: S1, S2 heard. No murmurs, gallops, or rubs. Regular rate and rhythm. Respiratory: Clear bilaterally to auscultation. No work of breathing or using accessory muscles. Abdomen: Soft, a little bit distended and mildly tender to palpation. Bowel sounds present. No organomegaly. Extremities: No clubbing, cyanosis, or edema. Peripheral pulses present in both legs. Neurological: Patient is alert and oriented x3. Moves 4 extremities. LABORATORY DATA: Reviewed. ASSESSMENT AND PLAN: 1. Acute kidney injury requiring hemodialysis. The patient is still not making urine. He had 2 sessions of hemodialysis until now, I am not seeing if Nephrology is planning to do 1 more on Saturday. We are going to check with them when this patient can be discharged from their standpoint. 2. Transaminitis. We do not know exactly what is the cause of this problem. There is a history of alcohol consumption. In any case, ALT and AST continues to go down. Hepatitis panel is negative. At this point, we are going to continue checking CMP daily. We are still waiting for GI input. Consult has been requested on 3 days ago. 3. Leukopenia. Condition resolved. According to hematology/oncology has been related to this acute illness. 4. Chronic sinusitis stable. We will continue with antibiotics. 5. Urinary tract infection. The urine culture returned positive for Klebsiella so we are going to switch the patient from Zosyn to ceftriaxone 1 g IV q.24 hours. 6. Hyponatremia. That condition is resolved and today is 130. cc: Scott Lutz MD
--- NOTE | 2016-08-19 13:34 | Diag Imaging Result Doc PS360 ---
EXAM: CT THORAX W/O CONTRAST - 08/19/2016 HISTORY: persistent cough, suspected PNA TECHNIQUE: Without contrast per request the referring provider. Dose reduction protocol. COMPARISON: None. FINDINGS: There are scattered calcified granulomas on the right and there are calcified right hilar and mediastinal lymph nodes from old granulomatous disease. There are mild COPD changes. There are scattered areas of subsegmental atelectasis and/or scarring. There is no consolidation, pleural effusion, or pneumothorax identified. There are nonspecific small noncalcified mediastinal lymph nodes. There is a central venous catheter with its distal tip at the caval atrial junction. There are small air bubbles in subcutaneous fat near the proximal portion central venous catheter compatible with recent insertion of the catheter. Included sections of upper abdomen show mildly distended gallbladder. There are no calcified gallstones or pericholecystic inflammation identified. IMPRESSION: Old granulomatous disease. Mild COPD changes. Scattered areas of subsegmental atelectasis and/or scarring. No discrete pneumonia. Mildly distended gallbladder. No calcified gallstones or pericholecystic inflammation seen. Electronically signed by Leonidas Gill 08/19/2016 1:32 PM
--- NOTE | 2016-08-19 19:16 | PROGRESS NOTE ---
DATE: 08/18/2016 SUBJECTIVE: Resting. Tolerating a diet which is clear liquids. Improvement in abdominal pain. Breathing has improved. OBJECTIVE: Vital signs: Temp 98.3 degrees, blood pressure 190/54, heart rate 74, respirations 16 on room air. She has been on dialysis with good output. General: A 61-year-old lady, chronically ill, no acute distress. HEENT: No scleral icterus or conjunctival pallor. Neck: Supple. Trachea midline. Heart: Normal. Lungs: Clear. Abdomen: Tender in the right upper quadrant. Bowel sounds present. Extremities: No edema. IMPRESSIONS: 1. Acute kidney injury, acute glomerulonephritis or nephrolithiasis of some sort. 2. Acute hepatitis, viral, which was ruled out for A, B, and C. It is not clear. LFTs were trending down. 3. controlled by dialysis. 4. Acid-base imbalance is corrected by dialysis. 5. Anemia is stable. Neutropenia is improving. 6. Gram-negative rods in the urine. She is on Zosyn. cc: Kehinde Harp MD
--- NOTE | 2016-08-19 20:26 | CONSULTATION ---
DATE OF CONSULTATION: 08/19/2016 REASON FOR CONSULTATION: Acute transaminitis. HISTORY OF PRESENT ILLNESS: This is a pleasant 61-year-old, who has been having chronic cough and sinus has been on amoxicillin for a week but was treated on something before that, and had subsequently gotten sick, unable to urinate and found out to have acute kidney injury. Brought to the hospital. She has grossly abnormal LFTs and abnormal kidney function that is requiring dialysis. I was asked to evaluate further. She has no history of hepatitis in the past. Never a drug user. No family history of liver disease. PAST MEDICAL HISTORY: 1. Hypertension. 2. GERD. 3. Sinus infection on and off for 2 months. 4. Depression. SURGICAL HISTORY: Status post hysterectomy. SOCIAL: She has smoked a half a pack per day for 50 years. Drinks alcohol occasionally, once every 2 weeks. Does not use any drugs. FAMILY HISTORY: Father with lung cancer. Brother with colon cancer. Grandfather stomach cancer. Unable brain cancer. Sister diabetes. REVIEW OF SYSTEMS: Only positive of the sinus infection going on for about 2 months and more recently anuria. HOME MEDICATION: Amoxicillin until recently. Also taking Goody powders. Tylenol occasionally. PHYSICAL EXAMINATION: Vital signs: Temperature of 98.8 degrees, heart rate 81, respirations 20, blood pressure 140/62, O2 saturation 97%. General: A 61-year-old lady who appears to be chronically ill. HEENT: No scleral icterus. Conjunctival pallor present. Neck: Supple. Heart: Normal first and second heart sounds. Lungs: Surprisingly clear. Abdomen: Tender, hepatomegaly right upper quadrant, but no Nixon sign. Bowel sounds present and normal. Extremities: No edema. Neurological: Alert and oriented. LABORATORY DATA: Shows white count 1.9. Hemoglobin and hematocrit 12 and 33, platelets 183,000. Potassium 2.8, BUN 59, creatinine 7.6, and AST 3096, ALT 1938. Bilirubin of 1.3. PT with INR 1.16. Iron 98, TIBC normal. Saturated iron normal, ferritin high. Alkaline phosphatase is normal at 143. B12 is 2000. IMAGING: CAT scan shows fatty liver and distended bladder. Chest x-ray looks normal. IMPRESSION AND PLAN: 1. Acute kidney injury of hereunto unclear the etiology. 2. Acute hepatitis infectious versus drug induced. She is unable to tell me if she has not taken anything than the amoxicillin for a sinus infection and the infection is still persistent. 3. Hypertension. 4. Gastroesophageal reflux. 5. Depression. 6. Leukopenia, bone marrow depression. 7. DVT prophylaxis and GI prophylaxis. Dialysis and further investigation. We will get all the hepatitis panel, AMA, MAGED I do not think this is primarily arising from gallbladder and the liver itself as the result of systemic injury, whether it is viral or whether it is some drug induced that we have not identified, but this should improve when her overall condition is improved and etiology is identified. We will continue to look. It might come to both liver and kidney biopsies for a diagnosis. We might also do a CT of the sinuses and get Infectious Disease as well if needed. She does have Gram-negative rods and she is on Zosyn. Lets see her response with this regimen and further decision will be decided on the test results as well as clinical response. cc: Kehinde Harp MD
[2016-08-20 05:34] LABS: HEMATOCRIT 31.4 % (37.0-47.0); HEMOGLOBIN 10.9 g/dL (12.0-16.0); MCH 33.3 PG (27-31); MCHC 34.7 g/dL (33-37); MPV 8.9 FL (7.4-10.4); RBC 3.27 XMIL (4.2-5.4)
[2016-08-20] MEDS: PEPCID IV SCH ×3 (05:44→18:48)
[2016-08-20] MEDS: PROTONIX PO SCH ×2 (05:44→06:04)
[2016-08-20] MEDS: MORPHINE IV PRN ×4 (05:45→19:56)
[2016-08-20 06:01] LABS: ALBUMIN 3.1 g/dL (3.5-5.0); CALCIUM 8.4 mg/dL (8.8-10.2); DIRECT BILIRUBIN 0.3 mg/dL (0.00-0.20); POTASSIUM 3.7 mmol/L (3.5-5.1); TOTAL BILIRUBIN 0.57 mg/dL (0.20-1.00); TOTAL PROTEIN 6.4 g/dL (6.3-8.3)
[2016-08-20] MEDS ORDERED: HEPARIN IV PRN (07:10)
[2016-08-20] MEDS ORDERED: TIGHT: 0.2 ML/HR MISC PRN (07:10)
[2016-08-20] MEDS ORDERED: NS 2,000 ML MISC PRN (07:10)
[2016-08-20] MEDS ORDERED: HEPARIN ONE (08:08)
[2016-08-20] MEDS ORDERED: NS 2,000 ML ONE (08:08)
[2016-08-20] MEDS ORDERED: DUONEB (A & A) INH PRN (09:44)
--- NOTE | 2016-08-20 10:30 | PROGRESS NOTE ---
DATE: 08/20/2016 TIME SEEN: 729 SUBJECTIVE: Ms. Serrato is resting quietly in bed. She is hoarse. She has had a chronic cough. GI has evaluated her yesterday. She denies chest pain or increased work of breathing. OBJECTIVE: Vital Signs: Her most recent vital signs are temperature 98.4 degrees, blood pressure 147/69, heart rate 91, respirations 16. She is on room air. Last recorded saturation 96%. She has had 120 in. She has had 630 out per Verduzco catheter. No dialysis yesterday. Laboratory Data: Sodium 126, potassium 3.7, chloride is 88, CO2 22, BUN 31, creatinine 4.9, glucose 99. Anion gap 16, calcium 8.4, phosphorus 5, albumin 3.1. White count 5.18, hemoglobin 10.9, hematocrit 31.4, with a platelet count of 233,000. Her direct bilirubin is 0.3, total bilirubin is 0.57, AST 69, ALT 435. Physical Examination: General: This is a 61-year-old, white female. She is resting in bed. She appears chronically ill, in no acute distress. Her skin is warm and dry. HEENT : Normocephalic, atraumatic. Conjunctivae are pink. She has STEFFANY. Mucous membranes are moist. Neck: Supple. Trachea midline. No JVD. Cardiovascular: She is regular rate and rhythm. She is without murmur or gallop. Lungs: Clear to auscultation anteriorly. Equal excursion on room air. Abdomen: Soft, nontender. Positive bowel sounds. Extremities: Have no edema. No clubbing or cyanosis. Genitourinary: Patient has a Verduzco catheter in place. Increased urine out in the last 24-48 hours. Neurological: Alert and oriented x3. ASSESSMENT AND PLAN: 1. Acute kidney injury in the context of acute hepatocellular injury associated with metabolic acidosis. This continues to improve. Patient has received 2 treatments of dialysis. We will plan for dialysis today. We will place her on a 3K bath, 3.5 hours and attempt to pull 2-3L of ultrafiltration as tolerated. Her urine output has increased without dialysis. 2. Electrolytes. Modest hyponatremia with correction on dialysis. 3. Acidosis. Stable with narrowing ion gap. Correction on dialysis. 4. Anemia. This remains low but stable. 5. Chronic cough with abdominal pain. GI now following. May be related to reflux. 6. Elevated LFT's. Pt. was seen by Dr. Harp. Noted that she may require liver biopsy on possible outpatient basis. 7. Discharge. Patient states she may be discharged today or tomorrow. We will make arrangements for outpatient hemodialysis at the [facility] clinic. I would like to thank you for allowing us to follow with this patient. Dictated by MELITON South for Jonathan Jordan MD cc: MELITON South MD [facility]
--- NOTE | 2016-08-20 11:25 | PROGRESS NOTE ---
DATE: 08/20/2016 SUBJECTIVE: Patient currently resting in bed. She is undergoing hemodialysis, the 3rd treatment. Nephrology team is working her up for the etiology behind the renal failure. Her liver numbers are coming down. We are performing a chronic liver disease workup. I suspect that she could have some shock liver or transient hypoxemia to the liver which caused acute elevation of liver enzymes. We will follow up the results. She denies any nausea or vomiting. No fevers, rigors, or chills. PHYSICAL EXAMINATION: Vital Signs: Temperature of 98.8 degrees, pulse rate of 80, respiratory rate of 20, blood pressure 137/60, saturating 94% on room air. Body weight of 146 pounds. BMI 26.7 kg/m2. General Appearance: Moderately built, moderately nourished, lying in bed, in no acute distress. HEENT: Pale conjunctivae. No icterus. Neck: Supple. Abdomen: Soft, protuberant. Bowel sounds are present. No guarding. Extremities: No cyanosis or clubbing. Neurologic: Alert, awake, oriented. LABS: Her hemoglobin and hematocrit are 10.9 and 31.4, white count 5.18, platelet count of 233,000. Sodium of 127, potassium 3.7, chloride of 88, bicarb 22, anion gap of 16, BUN of 31, creatinine 4.9, glucose of 99, calcium 8.4, phosphorus 5. Total bilirubin is 0.5, direct of 0.3, AST 69, ALT 435, and alkaline phosphatase 174. Total protein 6.4, albumin of 3.1. Tylenol level is 1.5. MAGED is negative. ANCA is negative. Glomerular basement membrane IgA antibody is less than 0.02. Complement level, C3 56 which is low and C4 level is 10. Hepatitis panel is nonreactive. IMPRESSION/PLAN: 1. Acute hepatocellular injury of unclear etiology. We will perform chronic liver disease workup. I suspect it could be secondary to transient hypotension causing transient hypoxemia. We will follow up the workup and continue to support her liver, avoid any hepatotoxic drugs, and will start on multivitamin once a day. 2. Urinary tract infection with Klebsiella pneumoniae, on antibiotics. 3. Sinusitis and sore throat, status post treatment with amoxicillin recently. 4. Gastrointestinal prophylaxis with Pepcid twice daily. 5. Bowel regimen, Yadira-Colace 2 capsules p.o. b.i.d. 6. Renal failure, acute onset, being followed by Dr. Jordan. undergoing hemodialysis for 1 week. 7. Further recommendations pending hospital course. cc: MD Jonathan Hughes MD Heather Shah, MD R. Tyler Harney, MD Michael Putman MTDD
[2016-08-20 11:31] LABS: HIV ANTIBODY SCREEN SEE COMMENTS
--- NOTE | 2016-08-20 12:00 | PROGRESS NOTE ---
DATE: 08/20/2016 SUBJECTIVE: The patient reports feeling fine. Mild cough that is still present, but no fever or chills. OBJECTIVE: Vital Signs: Temperature 98.8 degrees, heart rate 80, respiratory rate 20, blood pressure 137/65, and O2 saturation 96% on room air. General: This is a chronically ill-looking, frail, and also looking older than her age 61-year-old female lying in bed, in no acute distress. HEENT: Head is normocephalic, atraumatic. Anicteric sclerae and pale conjunctivae. Mucous membranes moist. Neck: Supple. No JVD noted. No carotid bruits. No lymphadenopathy. No thyromegaly. Cardiovascular: S1 and S2 heard. No murmurs, gallops, or rubs. Regular rate and rhythm. Respiratory: Clear bilaterally to auscultation, but there is some wheezing in both bases. The patient is not using any accessory muscles or having work of breathing. Abdomen: Soft, nontender, and nondistended. Mildly tender to palpation. Bowel sounds present. No organomegaly. Extremities: No clubbing, cyanosis, or edema. Peripheral pulses present in both legs. Neurological: The patient is alert and oriented x3. Able to move 4 extremities. Cranial nerves 2 through 12 grossly normal. LABORATORY DATA: Urine culture positive for Klebsiella pneumoniae and blood cultures negative after 48 hours. ASSESSMENT AND PLAN: 1. Acute kidney injury requiring hemodialysis. The patient is going to have session number 3 of dialysis today. He started making slowly some urine at 230 mL yesterday. At this point, we will for how long Nephrology is planning to keep this patient here. I do not think they are planning to discharge her tomorrow. We will follow his recommendations. 2. Transaminitis. We do not know exactly what has triggered this problem, but in any case, the ALT and AST continue to drop. Hepatitis panel is negative. 3. Possible liver biopsy if Nephrology decides to pursue a kidney biopsy. We will see what else gastrointestinal has to say. 4. Leukopenia, resolved. 5. Chronic sinusitis, stable. 6. Klebsiella pneumoniae urinary tract infection. The patient is on ceftriaxone 1 gram IV every 24 hours. While she is , we are going to switch it to after dialysis for a duration of a couple of weeks. 7. Hyponatremia. The sodium has dropped a little bit again today. Today it is 126. We will continue checking BMP daily. Because of abnormal liver function tests, we cannot use . Although this patient is doing good, the patient was admitted to hospital for acute kidney injury with anuria, so hemodialysis has been started. Also, the patient was diagnosed with a urinary tract infection that is being treated with ceftriaxone. The patient can be discharged home as soon as Nephrology has cleared up, and definitely she will need ceftriaxone 1 gram IV to be administered after dialysis. cc: Scott Lutz MD
[2016-08-20] MEDS: ROCEPHIN 1 GM/NS 1 GM/50 ML IVPB IV SCH (13:21)
[2016-08-20] MEDS: PERICOLACE PO SCH ×2 (13:21→19:57)
[2016-08-20] MEDS: TESSALON PO SCH ×3 (13:21→19:57)
[2016-08-20] MEDS: PERIDEX MT SCH ×2 (13:21→19:57)
[2016-08-20] MEDS: CELEXA PO SCH (13:21)
[2016-08-20] MEDS: ZOFRAN IV PRN (13:23)
[2016-08-20] MEDS: DUONEB (A & A) INH SCH ×4 (15:45→23:13)
[2016-08-20] MEDS ORDERED: NS 500 ML ONE (17:03)
--- NOTE | 2016-08-20 19:41 | PROGRESS NOTE ---
DATE: 08/19/2016 SUBJECTIVE: Feels better. Still has cough but no fever. OBJECTIVE: Vital signs: Temp 98 degrees, heart rate 77, respirations 18, blood pressure 114/59, O2 saturation 97%. HEENT: No scleral icterus. Conjunctival pallor present. Neck: Supple. Trachea midline. Heart: Normal first and second heart sounds. Lungs: Clear. Abdomen: pigment furnace tender in the right upper quadrant but no Nixon sign. Bowel sounds present and normal. LABORATORY DATA: Reviewed, showing improvement in all directions on the liver. IMPRESSION: 1. Acute liver injury. Cause yet to be determined. No drugs were identified to cause hepatic injury. No . Her MAGED levels are normal. 2. Acute nephritis, kidney injury, requiring dialysis. May need liver biopsy and kidney biopsy as well. 3. Leukopenia is in improved. 4. Chronic sinusitis. 5. Urinary tract infection on Zosyn. PLAN: Continue the medications. She took several antibiotics penicillin-related but none of them are known to cause this kind of injury. Still not entirely clear what exactly is going on in the sinuses. Might get a CT of the sinuses also. Will follow. Nothing to add at this time. -6 cc: Kehinde Harp MD
[2016-08-21] MEDS: MORPHINE IV PRN ×4 (00:52→21:50)
[2016-08-21] MEDS: DUONEB (A & A) INH SCH ×6 (03:20→23:19)
[2016-08-21 06:12] LABS: HEMATOCRIT 29.1 % (37.0-47.0); MCH 33.4 PG (27-31); MCHC 34.4 g/dL (33-37); MCV 97.3 FL (81-99); RBC 2.99 XMIL (4.2-5.4)
[2016-08-21] MEDS: PROTONIX PO SCH (06:14)
[2016-08-21] MEDS: PEPCID IV SCH ×2 (06:15→18:21)
[2016-08-21] MEDS: PERICOLACE PO SCH ×3 (06:16→20:29)
[2016-08-21] MEDS: TESSALON PO SCH ×4 (06:16→20:28)
[2016-08-21 06:22] LABS: ALBUMIN 3.2 g/dL (3.5-5.0); CALCIUM 8.4 mg/dL (8.8-10.2); DIRECT BILIRUBIN 0.2 mg/dL (0.00-0.20); POTASSIUM 3.8 mmol/L (3.5-5.1); TOTAL BILIRUBIN 0.45 mg/dL (0.20-1.00)
[2016-08-21] MEDS: PERIDEX MT SCH ×3 (09:06→22:57)
[2016-08-21] MEDS: CELEXA PO SCH (09:06)
--- NOTE | 2016-08-21 13:36 | PROGRESS NOTE ---
DATE: 08/21/2016 TIME SEEN: 0815. SUBJECTIVE: Ms. Serrato is resting quietly in bed. She is sitting, eating her breakfast. Head of the bed is elevated. She has no complaints. States that she is feeling much better. OBJECTIVE: Her most recent vital signs: Temperature 98.3 degrees, blood pressure 111/52, heart rate 89, respirations 16. She is on room air. Last recorded saturation 96%. She has had 1612 in. She has had 3 L out with 2.6 L on dialysis and 400 mL out of her Verduzco catheter. LABORATORY DATA: Sodium 133, potassium 3.8, chloride 92, CO2 of 28. BUN 18, creatinine 3.3. Glucose 122. Her anion gap is 13, calcium is 8.4. Phosphorus is 3.8, her albumin is 3.2. White count 5.11. Hemoglobin 10, hematocrit 29.1 with a platelet count of 249,000. PHYSICAL EXAMINATION: This is a 61-year-old white female. She is currently resting in bed. Tunnel catheter remains to the right chest wall. She states that she is feeling better. She is in no acute distress. Her skin is warm and dry. HEENT: Normocephalic, atraumatic. Conjunctivae pink. She has STEFFANY. Mucous membranes moist. Neck supple. Trachea midline. No JVD. Cardiovascular: She is regular rate and rhythm. She is without murmur or gallop. Lungs are clear to auscultation anteriorly. Equal excursion with a faint wheeze to the right mid posterior lobe. Abdomen is soft, nontender. Positive bowel sounds. Extremities have no edema. No clubbing or cyanosis. Verduzco catheter remains in place. Genitourinary not inspected. Neurological: She is alert and oriented x3. ASSESSMENT AND PLAN: 1. Acute kidney injury in the context of acute hepatocellular injury associated with metabolic acidosis. Patient's creatinine has improved secondary to dialysis treatment yesterday. Urine output has increased even though she has had dialysis. We will hold dialysis today. We will plan for dialysis in the a.m. based upon her current labs and intake and output. Patient has had her records sent to [facility] for outpatient dialysis at 6:45 am on if discharged. She is to dialyze on Saturday, , Saturday. We will plan for lab drawn prior to dialysis per protocol am at the outpatient clinic. Otherwise, we will plan for dialysis in the morning. No indications for renal biopsy at this current time. 2. Electrolytes. Patient has had a correction with modest hyponatremia on dialysis yesterday. 3. Acidosis. This continues to correct with dialysis. 4. Anemia. This has remained stable. 5. Elevated LFTs. These continue to be followed by the primary care and by GI. I would like to thank you for allowing us to follow with this patient. Dictated by MELITON South for Jonathan Jordan MD cc: MELITON South MD [facility]
[2016-08-21] MEDS: ROCEPHIN 1 GM/NS 1 GM/50 ML IVPB IV SCH (15:30)
--- NOTE | 2016-08-21 16:07 | PROGRESS NOTE ---
DATE: 08/21/2016 SUBJECTIVE: Today, Ms. Serrato refers to be doing relatively fine. He continues to have some residual shortness of breath. OBJECTIVE: Vital Signs: Blood pressure is 120/58, Pulse of 87, respirations 16, temperature 98.6 degrees. General: Ms. Serrato is a 61-year-old female. She is in bed, not seemingly distressed. HEENT: Mucosa is pink and moist. Anicteric. Acyanotic. Neck is supple. Chest: Good air entry bilateral. There is a few bibasilar crepitations. There is a right tunnel chest dialysis catheter. Cardiovascular: Regular rate and rhythm. Abdomen is soft, nontender. Extremities: No pedal edema. BATCH UNIT TREATER: Patient is awake and alert and oriented. LABORATORY DATA: Laboratory data: WBC is 5.11, hemoglobin is 10.0, platelet count is 249,000, sodium is 133, potassium is 3.8, chloride is 92, bicarb is 28, creatinine is down to 3.2. A CT scan of the chest was done on presentation which shows old granulomatous disease and mild COPD changes. No discrete pneumonia. CURRENT MEDICATIONS: 1. Ceftriaxone. 2. Pantoprazole. 3. Morphine. 4. Pepcid. I's and O's, the patient's urine output 400; that is a negative output of 1308. The patient did not have dialysis yesterday and today. ASSESSMENT: 1. Acute kidney injury requiring dialysis. Renal function seems to have progressively shown some improvement. Nephrology is observing the patient today. They have made arrangement for outpatient dialysis if patient needs, which means if tomorrow patient is clinically stable, we are going to discharge her. 2. Transaminitis. Etiology is unclear. We think it is probably due to steatohepatitis. The liver function tests is progressively getting better. All the serological evaluations have been negative. 3. Klebsiella pneumoniae urinary tract infection. Patient is currently on IV ceftriaxone. Patient has had 2 days with this antibiotics. We will wait for tomorrow for a total of 3 days of IV antibiotics, and we can switch this to p.o. 4. Hyponatremia, stable. 5. Chronic obstructive pulmonary disease. I think patient is in some mild exacerbation. He is currently getting nebulization and antibiotics. I will add low-dose steroids to his medications to help open up his lungs. She has been advised about smoking cessation. cc: Costa Doll MD
[2016-08-21] MEDS: SODIUM CHLORIDE 0.9% INJ SCH (18:21)
[2016-08-21] MEDS: PREDNISONE PO SCH (18:21)
[2016-08-21] MEDS: ZOFRAN IV PRN (21:50)
[2016-08-21] MEDS: ADVAIR 250/50 DISKUS INH SCH (23:19)
[2016-08-22] MEDS: DUONEB (A & A) INH SCH ×6 (03:19→23:25)
[2016-08-22] MEDS: PEPCID IV SCH (05:46)
[2016-08-22] MEDS: PROTONIX PO SCH ×2 (05:46→06:16)
[2016-08-22 06:20] LABS: MANUAL DIFF NEEDED? NO
[2016-08-22 06:21] LABS: BASO% 0.2 % (0.0-0.8); HEMATOCRIT 29.4 % (37.0-47.0); HEMOGLOBIN 10.3 g/dL (12.0-16.0); IMM GRAN# 0.02 X1000 (0.0-0.04); IMM GRAN% 0.4 % (0.0-0.5); LYMPH# 0.38 X1000 (1.2-3.4); LYMPH% 7.7 % (20.5-51.1); MCH 32.4 PG (27-31); MCV 92.5 FL (81-99); MONO# 0.39 X1000 (0.11-0.59); MONO% 7.9 % (1.7-9.3); MPV 9.1 FL (7.4-10.4); NEUT% 83.8 % (42.2-75.2); PLT 274 X1000 (130-400); RBC 3.18 XMIL (4.2-5.4)
[2016-08-22 06:54] LABS: ALBUMIN 3.1 g/dL (3.5-5.0); CALCIUM 8.2 mg/dL (8.8-10.2); DIRECT BILIRUBIN 0.2 mg/dL (0.00-0.20); POTASSIUM 3.8 mmol/L (3.5-5.1); TOTAL BILIRUBIN 0.43 mg/dL (0.20-1.00); TOTAL PROTEIN 6.3 g/dL (6.3-8.3)
[2016-08-22] MEDS: ADVAIR 250/50 DISKUS INH SCH ×2 (07:30→19:40)
[2016-08-22] MEDS: SPIRIVA INH SCH (07:30)
[2016-08-22] MEDS ORDERED: TIGHT: 0.2 ML/HR MISC PRN (08:07)
[2016-08-22] MEDS ORDERED: NS 2,000 ML MISC PRN (08:07)
[2016-08-22] MEDS ORDERED: HEPARIN IV PRN (08:07)
[2016-08-22] MEDS: CELEXA PO SCH (08:37)
[2016-08-22] MEDS: PREDNISONE PO SCH (08:37)
[2016-08-22] MEDS: PERICOLACE PO SCH ×2 (08:37→21:03)
[2016-08-22] MEDS: TESSALON PO SCH ×3 (08:38→21:03)
[2016-08-22] MEDS: PERIDEX MT SCH ×2 (08:38→21:03)
[2016-08-22] MEDS ORDERED: NS 2,000 ML ONE (08:39)
[2016-08-22] MEDS ORDERED: HEPARIN ONE (08:39)
[2016-08-22] MEDS: MORPHINE IV PRN ×2 (13:32→21:54)
[2016-08-22] MEDS: ROCEPHIN 1 GM/NS 1 GM/50 ML IVPB IV SCH (14:43)
--- NOTE | 2016-08-22 15:11 | PROGRESS NOTE ---
DATE: 08/22/2016 SUBJECTIVE: Ms. Serrato is sitting on the side of the bed. She has decided to go to hemodialysis today and sat up in a chair. She is waiting for transport. She denies chest pain, increased work of breathing. States that she is feeling much better. OBJECTIVE: Temperature 97.4 degrees, blood pressure 148/73, heart rate 100, respirations 18. She is on room air. Last recorded saturation 100%. She has had 1985 in. She has had 1250 out per Verduzco catheter. LABS: Next sodium is 126, potassium 3.8, chloride is 88, CO2 25, BUN 20, creatinine 3.1, glucose 149. Anion gap 13, calcium 8.2, phosphorus 3.8, albumin 3.1. White count 4.96 , hemoglobin 10.3, hematocrit 29.4, with a platelet count of 274,000. Patient has a total bilirubin 0.432, direct bilirubin 0.20. AST 49, ALT 232, alkaline phosphatase 133. She has a PTH of 139. PHYSICAL EXAM: This is a 61-year-old white female. She is in no acute distress.Skin: Warm and dry. HEENT: Normocephalic, atraumatic. Conjunctivae pale. She has STEFFANY. Mucous membranes moist. Neck: Supple. Trachea midline. No JVD. Cardiovascular: She is regular rate and rhythm. She is without murmur or gallop. Lungs: Clear to auscultation anteriorly. Equal excursion on room air. Abdomen: It is round, soft, nontender. Positive bowel sounds. Genitourinary: Verduzco catheter remains in place. Not inspected. We will plan to remove the Verduzco catheter later on this afternoon and attempt to have patient start to void. Integumentary: No rashes or lesions evident to the anterior chest wall or extremities. Neurological: Alert and oriented x3. ASSESSMENT AND PLAN: 1. Acute kidney injury in the context of acute hepatocellular injury. They both appear to be improving. No indications for kidney biopsy. Patient has had increased urinary output. Her BUN and creatinine have continued to improve without dialysis. Subsequently her estimated GFR is 15% today. We will plan for dialysis. She is to hold on outpatient dialysis until Saturday. We have requested that she go to her treatment at 6:45 as scheduled. She is to then to go back to [facility] for labs on Rashad morning and we will call her to determine if she continues with dialysis outpatient based upon these labs Saturday. 2. Electrolytes. Patient continues with mild hyponatremia again with correction on dialysis. She is to remain on a 1.5 L fluid restriction. Again, this may be secondary to her acute kidney injury though recovering. 3. Acidosis. This continues to be corrected on dialysis. 4. Anemia. This remains low but stable. 5. Elevated LFTs. They do continue to improve. This is followed by GI. I would like to thank you for allowing us to follow with this patient. Dictated by MELITON South for Jonathan Jordan MD cc: MELITON South MD [facility]
--- NOTE | 2016-08-22 15:26 | PROGRESS NOTE ---
DATE: 08/22/2016 SUBJECTIVE: Patient resting in bed. Her sister is at the bedside. She denies any fever and denies any nausea, vomiting and diarrhea. She denies any vomiting or passing blood in the stools. OBJECTIVE: Vital signs: Temperature of 97.4 degrees, pulse rate of 100, respiratory rate 18, blood pressure 140/73, saturating 100% on room air. Body weight of 145 pounds 9.9 ounces. General appearance: Moderately nourished, lying in bed, in no acute distress. HEENT: Pale mucosa. No icterus. Neck: Is supple. Abdomen: Soft, nontender, nondistended. Mildly obese. Bowel sounds present. Extremities: No cyanosis, clubbing. Neurologic: Alert, awake, oriented. LABS: Hemoglobin and hematocrit is 10.3, 29.4, white count of 4.9, platelet count of 274,000. MCV of 92.5. Sodium 126, potassium 3.8, chloride of 88, bicarb 25. Anion gap 13, BUN of 20, creatinine of 3.1. Glucose of 149. Calcium is 8.2, phosphorus 3.8, bilirubin 0.43, direct of 0.2. AST 49, ALT 232, alkaline phosphatase is 133. Total protein 6.2, albumin of 3.1. Alpha 1 trypsin level was normal but high, 299 and antimitochondrial antibody and antismooth muscle antibody is negative. Negative MAGED. Negative acute hepatitis panel. PTH level is 139. IMPRESSION AND PLAN: 1. Transaminitis unclear etiology likely secondary to transient hypoxemia/shock liver and the liver enzymes are improving. She could have underlying element of steatohepatitis as a high BMI and questionable diabetes. The patient was counseled to avoid any hepatotoxic drugs and try to lose weight and try to manage her blood glucose per the primary care team. 2. Acute kidney injury. Likely acute tubular necrosis with improving urine output and requiring hemodialysis last week. Being monitored by Dr. Jordan and workup has been negative. 3. Klebsiella pneumoniae UTI. She is on IV ceftriaxone per the primary care team. This could have contributed to transient hypertension causing shock liver and maybe ATN but we have no way to confirm that. 4. COPD by the primary team. Under treatment. 5. GI prophylaxis with Pepcid twice daily and Protonix so we will stop the Pepcid for now. 6. Anemia. Will start the patient on Iron C b.i.d. and multivitamin once daily. 7. The patient will need anemia workup as an outpatient. She will undergo EGD colonoscopy when she is able to be discharged. The patient was counseled to call our office to make appointment. 8. Further recommendations pending hospital course. cc: MD Jonathan Hughes MD Raphael K. Quansah, MD Dr. Putman Heather Shah, MD
--- NOTE | 2016-08-22 16:21 | PROGRESS NOTE ---
DATE: 08/22/2016 SUBJECTIVE: Today, Ms. Serrato refers to be doing fine. She denies any acute problem, however, once I started talking to her, she just broke down crying saying that she cannot go home today because she has nobody at home to take care of her. OBJECTIVELY: Vital Signs: Blood pressure is 110/96, pulse is 106, respirations 18, temperature 98.2 degrees. General: Ms. Jacome is a 61-year-old female. She is in bed. She is not in any distress. HEENT: Mucosa is pink and moist. Anicteric. Acyanotic. Neck is supple. Chest was clear. Cardiovascular: Regular rate and rhythm. Abdomen is soft. Extremities: No pedal edema. 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 LABORATORY DATA: WBC is 4.96, hemoglobin is 10.3, platelet count is 274,000. Chemistry is reviewed. Sodium is 126. Potassium is 3.8, chloride is 88, bicarb is 25, creatinine is down to 3.1. PTH intact. It is 139. I's and O's. The patient actually had 1250 urine output yesterday. ASSESSMENT: 1. Acute kidney injury requiring dialysis. Patient seems to be improving. She got dialysis therapy today. 2. Transaminitis. Etiology is unclear. I think there is a combination of steatohepatitis with superimposed ischemic liver. The liver function tests continues to be improving. 3. Klebsiella pneumoniae urinary tract infection. We will switch patient's antibiotics to p.o. and, hopefully, can get her discharged by tomorrow. 4. Chronic obstructive pulmonary disease in mild exacerbation. Chest findings are a lot better today. PLAN: We are planning to discharge Ms. Serrato today, but she refers not to be feeling very well, so I spoke with a social media executive and, apparently, she does not have any insurance to go to rehab either. We will, therefore, get PT to evaluate her to see how well she is able to ambulate before we discharge her tomorrow. cc: Costa Doll MD
[2016-08-22] MEDS: ICAR-C PO SCH (21:03)
[2016-08-23] MEDS: MORPHINE IV PRN ×2 (02:16→07:59)
[2016-08-23] MEDS: DUONEB (A & A) INH SCH ×4 (03:25→15:40)
[2016-08-23] MEDS: PROTONIX PO SCH (06:09)
[2016-08-23] MEDS ORDERED: HEPARIN ONE (06:43)
[2016-08-23] MEDS ORDERED: NS 2,000 ML ONE (06:43)
[2016-08-23 07:35] LABS: CALCIUM 8.2 mg/dL (8.8-10.2); POTASSIUM 4.1 mmol/L (3.5-5.1); TOTAL BILIRUBIN 0.44 mg/dL (0.20-1.00); TOTAL PROTEIN 5.4 g/dL (6.3-8.3)
[2016-08-23] MEDS: SPIRIVA INH SCH (07:36)
[2016-08-23] MEDS: ADVAIR 250/50 DISKUS INH SCH (07:36)
[2016-08-23] MEDS: ZOFRAN IV PRN (07:59)
[2016-08-23] MEDS ORDERED: CENTRUM SILVER PO SCH (09:00)
[2016-08-23] MEDS ORDERED: VITAMIN D PO SCH (09:00)
[2016-08-23] MEDS: PERIDEX MT SCH (10:09)
[2016-08-23] MEDS: ICAR-C PO SCH (10:09)
[2016-08-23] MEDS: PREDNISONE PO SCH (10:09)
[2016-08-23] MEDS: TESSALON PO SCH (10:09)
[2016-08-23] MEDS: PERICOLACE PO SCH (10:09)
[2016-08-23] MEDS: CELEXA PO SCH (10:09)
[2016-08-23 10:27] VITALS: BP 154/67
--- NOTE | 2016-08-23 11:27 | PROGRESS NOTE ---
DATE: 08/23/2016 SUBJECTIVE: Patient is resting in bed. She denies any nausea or vomiting or diarrhea. She denies any fevers, rigors, chills. She had hemodialysis yesterday. OBJECTIVE: Vital signs: Temperature 98.2, pulse rate of 101, respiratory rate 18, blood pressure 154/67, saturating 98% on room air. General Appearance: Moderately nourished lying in bed, in no acute distress. HEENT: Sclerae pale, no icterus. Neck: Supple. Abdomen: Mildly protuberant, obese soft, nontender, nondistended. Bowel sounds are present. Extremities: No cyanosis, clubbing. Neurologic: She is alert, awake, oriented. LABS: Hemoglobin and hematocrit is 10.3 and 29.4, white count of 4.9, platelet count of 274,000. Sodium 136, potassium 4.1, chloride 96, bicarb 29, anion gap 11, BUN of 13, creatinine 2. Glucose of 100. Calcium is 8.2, phosphorus is 3.8, total bilirubin is 0.44. Direct of less than 0.2. AST 40, ALT 168, alkaline phosphatase was 109, total protein 5.4, albumin of 3. IMPRESSION AND PLAN: 1. Transaminitis. Etiology is unclear but it is likely combination of steatohepatitis with superimposed ischemic/hypoxemic liver. The liver numbers are getting better. This could have been secondary to transient bacteremia. 2. Klebsiella pneumoniae UTI on antibiotics. 3. Acute kidney injury. Likely ATN requiring dialysis and with improving urine output. Being followed by Kidney or Nephrology team. 4. COPD with moderate exacerbation per the primary care team. 5. Gastrointestinal prophylaxis with PPIs and bowel regimen to continue. The above plan discussed with the patient and also with Dr. Doll. 6. The patient will follow up with us in the clinic for workup of anemia. cc: MD Costa Hughes MD
[2016-08-24] MEDS ORDERED: LEVAQUIN PO SCH (09:00)
--- NOTE | 2016-08-24 09:23 | PROGRESS NOTE ---
DATE: 08/23/2016 TIME SEEN: 0820 hours. SUBJECTIVE: Ms. Serrato is resting quietly in bed. She states that she is feeling much better. Her sinuses are improving. She feels like she is breathing better. She denies chest pain. OBJECTIVE: Her most recent vital signs are temperature 98.4 degrees, blood pressure 144/67, heart rate 84, respirations 15. She is on room air. Last recorded saturation 95%. She has had 600 in. She has had 2900 out with 2 L on dialysis and 900 out per Verduzco catheter. LABORATORY DATA: Sodium is 136, potassium 4.1, chloride 96, CO2 29, BUN 13, creatinine 2, glucose 100, anion gap 11, calcium 8.2, albumin 3. Previous hemoglobin 10.3 on the . Her total bilirubin is 0.44, direct bilirubin 0.20. AST 40, ALT 168, alkaline phosphatase 107. PHYSICAL EXAMINATION: General: This is a 61-year-old white female. She is resting in bed. She is in no acute distress. Skin: Warm and dry. Pale pink. HEENT: Normocephalic, atraumatic. Conjunctiva is pale. She has STEFFANY. Mucous membranes are moist. Neck: Supple. Trachea midline. No JVD. Cardiovascular: Regular rate and rhythm. She is without murmur or gallop. Lungs: Clear to auscultation anteriorly. Equal excursion. Abdomen: Round, soft, nontender. Positive bowel sounds. Verduzco catheter remains in place. Not inspected. She has adequate urine out. Integumentary: No rashes or lesions noted. Neurological: Alert and oriented x3. ASSESSMENT AND PLAN: 1. Acute kidney injury in the context of acute hepatocellular injury both of these continue to improve. Patient has had increased urinary output. We have discussed this with the patient about her improvement and the next process. We will plan for dialysis in the a.m. if she remains in the hospital. Otherwise, she is to go to outpatient dialysis on Saturday. We will then have her collect labs on Saturday and wait to determine how these. We have requested that she keep an accurate I O indeterminate of her weight over the weekend. Otherwise, no further information or changes. 2. Electrolytes. These remain stable. 3. Acidosis. This has been corrected. 4. Anemia. This remains low, but stable. 5. Improving LFTs. This is followed by GI. I would to thank you for allowing us to follow with this patient. Dictated by MELITON South for Jonathan Jordan MD cc: MELITON South MD
--- NOTE | 2016-08-25 07:52 | DISCHARGE SUMMARY ---
ADMISSION DATE: 08/16/2016 DISCHARGE DATE: 08/23/2016 CONSULTATIONS: 1. Dr. Lillian John with hematology/oncology. 2. Dr. Harp with gastroenterology. 3. MELITON Schaeffer, with nephrology. 4. Dr. Inder Watt with general surgery. PERTINENT PROCEDURES: 1. Renal ultrasound showed no evidence of obstructive uropathy. 2. Sinuses CTA showed extensive paranasal mucosal disease mainly involving the right maxillary sinuses and the right ethmoid sinuses which exhibited subtotal opacification , degenerative arthropathy at the right TMJ noted incidentally. 3. Abdominal ultrasound showed hepatic steatosis, left renal cyst. 4. Right IJ PermCath placement performed by Dr. Inder Watt. 5. CTA of the chest showed old granulomatosis disease, mild COPD changes, scattered areas of subsegmental atelectasis and/or scarring. No discrete pneumonia. Mildly distended gallbladder. No calcified stones or pericholecystic inflammation seen. DISCHARGE DIAGNOSES: 1. Septic shock complicated with ATN and shock Liver 2. Acute kidney injury requiring hemodialysis Patient will get outpatient dialysis on Saturday. Renal will collect labs on Saturday and await to determine how these are. She has been requested and instructed on how to keep accurate intakes and outputs, and determine of her weight over the weekend. Stable. 2. Transaminitis of unclear etiology, likely combination of steatohepatitis with superimposed ischemic/hypoxemic liver, improving. 3. Klebsiella pneumoniae urinary tract infection. Continue on oral antibiotics. 4. Chronic obstructive pulmonary disease with mild exacerbation, improved. 5. Hypertension, stable. 6. Gastroesophageal reflux disease. Continue home medications. 7. Depression, stable. HOSPITAL COURSE: Briefly, Ms. Serrato is a 61-year-old female who carries a past medical history of hypertension, GERD, depression, sinus infection for 2 months. She had been taking amoxicillin for 1 week. Complained of severe headache. She presented to [facility] with complaints of abdominal pain for 2 days with no urine or bowel movement for 5 days. She states that on Saturday prior to her admission, she had diarrhea but no bowel movement since then. She started noticing that she was not have any urine output. She states that maybe 3/4 cup worth of urine since Saturday. She was having right upper quadrant abdominal pain as well as reported subjective fevers. She did attempt to hydrate by drinking 4 bottles of water per day and milk. She states that she did pass some gas as well as belching, and that she had actually lost 20 pounds since April after stopping her hormones. She also started having some muscle cramps on the day of her admission. Upon evaluation at [facility], she was found to have significant acute kidney injury with a creatinine of 7.6 and a BUN of 59 with an elevated AST and ALT of 1396 and 1938. They performed a CT. Per their report, it showed a dilated gallbladder, fatty liver, and mild pre-nephrotic stranding to the right kidney. She was transferred to [facility] for evaluation by nephrology as well as gastroenterology secondary to her elevated LFTs. Dr. Lillian John was consulted for the patient's leukopenia, which was felt to be secondary to her acute kidney injury which did resolve. The patient was initiated on IV fluids. Renal ultrasound revealed no obstructive uropathy. She was given fluids overnight with no improvement. She underwent a right IJ PermCath by Dr. Inder Watt. She was initiated on hemodialysis and continued to be on hemodialysis throughout her hospital stay. Dr. Harp was consulted in reference to her elevated liver function. The patient did improve with hemodialysis. Her transaminitis was not exactly clear. I felt it was a likely combination of her steatohepatitis with superimposed ischemic hypoxemic liver. However, her numbers have improved. She was also found to have a Klebsiella pneumoniae UTI for which she was placed on IV antibiotics as well as a moderate COPD exacerbation where she was started on bronchodilators as well as aggressive pulmonary toilet. The patient has greatly improved. She was appropriate for discharge. Her urine output has increased. She will go to outpatient dialysis in [place] on Saturday. She will have her labs collected on Saturday and wait to determine how they are to see if she will need to continue on hemodialysis. She has been requested to keep accurate Is and Os as well as her weight over the weekend, and follow up with Dr. Jordan as indicated. Electrolytes, acidosis, and anemia have all remained stable. Her LFTs have improved. Vital signs at the time of her discharge on 08/23/2016, temperature was 98.2 degrees, heart rate 101, respirations were 18, blood pressure was 154/67, O2 was 95% on room air. DISCHARGE DIET: Renal. DISCHARGE MEDICATIONS: As per Dr. Quansah: 1. Vitamin D3 1000 units p.o. daily. 2. Celexa 20 mg p.o. daily. 3. Advair inhaler 1 puff inhaled RT b.i.d. 4. Icar C 1 each p.o. b.i.d. 5. Levaquin 250 mg p.o. daily. 6. Protonix 40 mg p.o. daily. 7. Prednisone 20 mg p.o. daily. 8. Spiriva 1 puff inhaled RT daily. FOLLOWUP: The patient is being discharged home with plans to attend outpatient dialysis on Saturday. She will keep her strict Is and Os, and daily weights Over the weekend. She will report to have her labs drawn on Saturday and follow up with Dr. Jordan as well as Dr. Moctezuma to continue with her anemia workup. The patient can return to the ED for any worsening of symptoms. Dictated by MELITON Echevarria for Costa Doll MD cc: Costa Doll MD MTDD
--- NOTE | 2016-08-26 10:16 | PROGRESS NOTE ---
DATE: 08/21/2016 SUBJECTIVE: Ms. Serrato seems to be doing fine. Tolerating a diet. Some shortness of breath. OBJECTIVE: Vital Signs: Blood pressure 120/60. Pulse 80, respirations 16. Temperature 98.6 degrees. HEENT: There is no scleral icterus. Conjunctival pallor present. Neck: Supple. Trachea in the midline. Heart: Normal first and second heart sounds. Lungs: Bibasilar crepitations. Abdomen: Mild right upper quadrant tenderness and hepatomegaly. CUTTER MACHINE: Alert and oriented. No signs of hepatic encephalopathy. Laboratory Data: Hemoglobin and hematocrit are stable. Creatinine came down to 3.2. The dialysis has been reduced. IMPRESSION AND PLAN: 1. Acute kidney injury, possible acute atubular necrosis or nephritis. Renal function tests are improving. If patient needs dialysis, she will be arranged for outpatient. 2. Transaminitis. All the hepatitis panels negative. AMA, MAGED negative. Her alpha 1 antitrypsin is slightly high, then normal range which does not have any clinical significance. Ceruloplasmin is normal so the liver injury is probably between toxicity, whether it is viral or whatever that caused the kidney injury or due to hypotension which is not documented. Since it is getting better, there is no reason to do any liver biopsy at this time. 3. Klebsiella in the urine. The patient is on intravenous ceftriaxone. 4. Electrolyte imbalance is corrected with dialysis and oral replacement. 5. Chronic obstructive pulmonary disease. I think the patient is getting better. At this point, she needs supportive cares and I expect her to improve and come back to her baseline status and a normal recovery process. cc: Kehinde Harp MD
== END 2016-08-23 15:59 | disposition home or self-care (01) ==
LOC: SUATTDRO 10:21 → DIRADM 10:21 → 4N 12:37
PROVIDERS: ATTEND Internal Medicine

== ENCOUNTER 2016-08-25 07:58 | Inpatient (IN) ==
[2016-08-25] MEDS ORDERED: MAXIPIME 2 GM/NS 2 GM/100 ML IVPB IV ONE (10:18)
[2016-08-25] MEDS ORDERED: ZYVOX 600 MG/D5W 600 MG/300 ML IVPB IV ONE (10:20)
--- NOTE | 2016-08-25 10:23 | Diag Imaging Result Doc PS360 ---
EXAM: CHEST-PORTABLE HISTORY: severe dyspnea TECHNIQUE: Portable upright AP COMPARISON: 08/16/2016 FINDINGS: Interval placement of a right jugular double-lumen catheter. No pneumothorax. The tips overlie the mid superior vena cava. There are infiltrates in the mid lower right lung. Questionable small infiltrates in the left base. The heart is not enlarged. No pleural effusions identified. IMPRESSION: 1.No postprocedural pneumothorax 2.Development of infiltrates in the mid lower right lung. Electronically signed by Clark Crabtree 08/25/2016 10:21 AM
[2016-08-25] MEDS ORDERED: HEPARIN IV PRN (10:35)
[2016-08-25] MEDS ORDERED: NS 2,000 ML MISC PRN (10:35)
[2016-08-25] MEDS ORDERED: TIGHT: 0.2 ML/HR MISC PRN (10:35)
[2016-08-25 10:40] LABS: ALLEN TEST YES; BE -0.7 mmoll (-3.0-3.0); BLOOD TYPE ARTERIAL; DRAW SITE R RADIAL; METHB 0.6 % (0.0-1.5); O2(CT) 14.3 mL/dL (15.0-23.0); PCO2(98.6) 34 mmHg (35-45); PO2(98.6) 66 mmHg (60-100); SAMPLE BLOOD; SAO2 96.5 % (95.0-100.0); THB 10.8 g/dL (11.5-17.4); pH(98.6) 7.44 (7.35-7.45)
[2016-08-25 10:41] LABS: MODALITY CANNULA
[2016-08-25 11:00] LABS: BASO% 0.4 % (0.0-0.8); EOS# 0.02 X1000 (0.0-0.7); EOS% 0.1 % (0.0-10.0); HEMATOCRIT 31.7 % (37.0-47.0); HEMOGLOBIN 10.8 g/dL (12.0-16.0); IMM GRAN# 0.19 X1000 (0.0-0.04); IMM GRAN% 1.1 % (0.0-0.5); LYMPH# 1.42 X1000 (1.2-3.4); LYMPH% 7.9 % (20.5-51.1); MANUAL DIFF NEEDED? YES; MCH 32.7 PG (27-31); MCHC 34.1 g/dL (33-37); MCV 96.1 FL (81-99); MONO# 2.08 X1000 (0.11-0.59); MONO% 11.5 % (1.7-9.3); PLT 451 X1000 (130-400)
--- NOTE | 2016-08-25 11:00 | Diag Imaging Result Doc PS360 ---
EXAM: CT THORAX W/O CONTRAST HISTORY: SOB TECHNIQUE: Dose reduction protocol COMPARISON: 08/19/2016 FINDINGS: Interval development of a tiny left pleural effusion and small right pleural effusion. The right pleural effusion measures 1.9 cm posteriorly and inferiorly in the midline. Heart is not enlarged. Interval development of multifocal bilateral infiltrates. Findings are most pronounced in the mid right lung. The patient also has emphysema. Mediastinal nodes and scattered granuloma are again seen. IMPRESSION: Interval development of multifocal bilateral infiltrates and small pleural effusions. Electronically signed by Clark Crabtree 08/25/2016 10:58 AM
[2016-08-25] MEDS: MORPHINE IV PRN ×4 (11:02→23:26)
[2016-08-25] MEDS ORDERED: DUONEB (A & A) INH PRN (11:09)
[2016-08-25 11:17] LABS: ALBUMIN 3.4 g/dL (3.5-5.0); POTASSIUM 3.7 mmol/L (3.5-5.1); TOTAL BILIRUBIN 0.58 mg/dL (0.20-1.00); TOTAL PROTEIN 6.3 g/dL (6.3-8.3)
[2016-08-25] MEDS ORDERED: MORPHINE IV ONE (11:18)
[2016-08-25] MEDS: ATIVAN IV PRN ×3 (11:19→20:47)
[2016-08-25 11:21] LABS: LYMPHS 4 % (21-51); MONO 5 % (1-9)
[2016-08-25] MEDS: DUONEB (A & A) INH SCH ×4 (11:29→23:08)
--- NOTE | 2016-08-25 11:44 | PROGRESS NOTE ---
DATE: 08/25/2016 SUBJECTIVE: Apparently, Ms. Serrato was transferred from [facility] due to acute shortness of breath. My understanding is that she woke up early this morning and wanted to go and use the restroom at around 3 in the morning, and she said she could not catch her breath. She was just discharged from the hospital yesterday and she left in a very stable condition; however, since this morning, she has been having significant shortness of breath and the patient was transferred over here for further medical care. OBJECTIVE: Vital signs: Blood pressure is 152/106, pulse is 123, respirations 22, and temperature is 97.4 degrees. General: Ms. Serrato is a 61-year-old female. She looks very anxious and in respiratory distress. HEENT: Mucosa is pink, slightly dry. Anicteric. Acyanotic. Neck: Supple. Chest: Air entry is bilaterally reduced. There are diffuse bilateral wet crepitations in both lung bowers. Cardiovascular: Tachycardic. No murmurs. Abdomen: Soft, nontender. Bowel sounds are present. Extremities: No pedal edema. Central Nervous System: Patient is awake, alert, and oriented. There is no focal neurological deficit. LABORATORY DATA: There is none for now. IMAGING: A chest x-ray which has been done here shows diffuse bilateral interstitial infiltrates, more dense on the right, consistent with pulmonary edema with possible pneumonia on the right side. Still pending the official report. ASSESSMENT AND PLAN: 1. Acute hypoxemic respiratory distress, likely secondary to underlying pulmonary edema with superimposed pneumonia. The patient has been evaluated by the Nephrology team and there is a plan to dialyze her. We are also going to do a CT scan of the lungs to get a better idea of the lung parenchyma. For now, we will cover the patient with cefepime and linezolid to cover for hospital-associated infection. We will also do troponins and a proBNP to check on the heart. So far, EKG has not shown any acute changes electrocardiographically. 2. History of acute kidney injury, needing dialysis. The patient was in the hospital, as I said, and was just discharged yesterday. On that occasion, she was treated for acute kidney injury, which never recovered, and was started on dialysis and has outpatient setup for dialysis. However, she was not able to go to her dialysis today because of her current symptoms, so Nephrology will dialyze her. Of note, patient states she has been having adequate urine. We are going to put in a Verduzco catheter to actually monitor her intake and output strictly. 3. Transaminitis on previous admission due to steatohepatitis with superimposed shock liver. 4. Remote history of Klebsiella pneumonia and urinary tract infection. 5. History of chronic obstructive pulmonary disease. cc: Costa Doll MD
--- NOTE | 2016-08-25 11:47 | PROGRESS NOTE ---
DATE: 08/25/2016 SUBJECTIVE: Ms. Serrato got transferred from [facility] early this morning because of acute onset of shortness of breath. She relates that she woke up early this morning to go and use the restroom at about 12 a.m. and, since then, she has been having intense shortness of breath and she is not able to catch her breath. She presented to [facility]. She was evaluated and they decided to transfer her here to [facility]. OBJECTIVE: Blood pressure is 157/105, pulse is 123, respiration is 29, pulse rate is about 89-92. General, Ms. Serrato is a 61-year-old female. She is in bed. She is somehow in distress and anxious. Mucosa is pink and slightly dry. Anicteric. Acyanotic. Neck is supple. There is positive JVD. Chest: Air entry is bilaterally reduced. There is diffuse bilateral coarse crepitations in both lung bowers. Cardiovascular: Tachycardic. No murmurs. Abdomen is soft, distended, but nontender. No hepatosplenomegaly. Extremities: No pedal edema. FIGURE SKATER: Patient is awake and alert. There is no focal neurological deficit. She is able to follow some basic commands. LABORATORY DATA: None. A chest x-ray done just a while ago shows diffuse bilateral infiltrates, more dense in the right which is suspicious for bilateral pleural effusion with possible superimposed pneumonia. ASSESSMENT: 1. Acute hypoxemic respiratory failure. 2. Bilateral pulmonary infiltrates likely due to pulmonary edema. 3. Dense right lower lobe consolidation suspicious for pneumonia likely hospital acquired. 4. History of acute kidney injury progressively getting better. 5. Suspect a history of chronic obstructive pulmonary disease. 6. Recently treated Klebsiella pneumonia urinary tract infection. PLAN: We are going to do an urgent CBC, CMP. We are going to do blood cultures and put in a Verduzco catheter. We will start the patient on cefepime and linezolid to cover for hospital associated as etiology of her suspected pneumonia. As I said, we will do a CT scan of the lungs. If the patient continues to be hypoxemic, we will use the BiPAP for now. If there is no significant improvement, we would have a low threshold to intubate her. Nephrology has also been evaluated, and I guess they would dialyze her depending on her numbers and on further imaging studies. cc: Costa Doll MD Critical time spent 45minutes. [facility]
[2016-08-25] MEDS: LEVAQUIN 250 MG/D5W 250 MG/50 ML IVPB IV SCH (13:11)
[2016-08-25] MEDS ORDERED: ASPIRIN PO ONE (14:13)
--- NOTE | 2016-08-25 14:43 | HISTORY AND PHYSICAL ---
CHIEF COMPLAINT: Shortness of breath. HISTORY OF PRESENT ILLNESS: Ms. Serrato is an unfortunate 61-year-old female who was discharged from our service yesterday. She was here for around 7 days for acute kidney injury requiring hemodialysis, transaminitis, and a Klebsiella pneumoniae UTI. At that time, she had a hemodialysis catheter placed and was put on dialysis. She had fairly profound transaminitis that was really unexplained, with the exception of probable ischemic hepatitis. At any rate, she improved and was ultimately discharged home yesterday with instructions to follow up with Dr. Jordan for continued dialysis. She went to bed last night in her normal state of health and woke up at around 3 o'clock this morning gasping for air, and went to [facility] for evaluation. She was worked up there and it was felt that she needed higher level of care, so they contacted us and she was sent over here. In the ER at [facility], she was found to have a right lower lobe pneumonia with an elevated white count. She was started on antibiotics and ultimately transferred to our ICU. When she got to the ICU here, she was noted to be in fairly significant respiratory distress. We shot a quick portable chest x-ray, which did show some pneumonia in the right lung. We subsequently sent her for CT of the chest, which demonstrated multilobar pneumonia. Her blood work is consistent with sepsis, but, interestingly, her creatinine and transaminases are much improved. She is hemodynamically stable, but in significant respiratory distress, so we are placing her on BiPAP and initiating septic protocol. PAST MEDICAL HISTORY: 1. Recent acute kidney injury, requiring hemodialysis. 2. Ischemic hepatitis. 3. Klebsiella pneumoniae urinary tract infection. 4. Chronic obstructive pulmonary disease. 5. Gastroesophageal reflux disease. 6. Leukopenia. 7. Depression. PAST SURGICAL HISTORY: She has had a hysterectomy and hemodialysis catheter placement. SOCIAL HISTORY: She has a history of smoking and has done so for 50 years. She drinks rarely. Lives at home alone. No drug use. FAMILY HISTORY: Significant for lung cancer, colon cancer, stomach cancer, brain cancer, CKD, and hypothyroidism. REVIEW OF SYSTEMS: Unable to obtain, as the patient is in respiratory distress on BiPAP. ALLERGIES: No known drug allergies. HOME MEDICATIONS: Vitamin D3 at 1000 units p.o. daily. Celexa 20 mg daily. Advair 250/50 b.i.d. Icar C 1 b.i.d. Levaquin 250 mg p.o. daily. Protonix 40 mg daily. Prednisone 20 mg daily for 5 days. Spiriva 1 puff inhaled daily. PHYSICAL EXAMINATION: VITAL SIGNS: Blood pressure is 152/106, heart rate 134, respiratory rate is 36 , O2 saturation is 100% on 100% BiPAP, and temperature is 97.4 degrees. GENERAL: This is a chronically ill-appearing 61-year-old female, lying in hospital bed in obvious respiratory distress. NEUROLOGIC: Nonfocal. She follows commands. HEENT: Head is atraumatic and normocephalic. Her pupils are equal, round, and reactive to light. NECK: Supple. Trachea is midline. No JVD. CHEST: Fairly severe rhonchi in the right lung bowers and rhonchi in the left lower lung field. CARDIOVASCULAR: Tachycardic, but regular. S1 and S2 noted. GASTROINTESTINAL: Soft, nondistended, nontender. Bowel sounds are hypoactive. EXTREMITIES: No edema. Pulses 1+ bilaterally. DIAGNOSTIC DATA: Chest x-ray shows development of infiltrates in the mid lower right lung zone. A CT of the chest shows interval development of multifocal bilateral infiltrates and small pleural effusions. WBC 18.01, hemoglobin 10.8, hematocrit 31.7, and platelet count 451, 000. ABG on nasal cannula showed pH 7.44, CO2 of 34, O2 of 66, bicarbonate 24.3. Lactic acid 1.4. Sodium 139, potassium 3.7, chloride 99, CO2 of 21, anion gap 19, BUN 18, creatinine 1.9, glucose 177, AST 34, ALT 109, alkaline phosphatase 119. Troponin 0.151 and proBNP 12,335. Albumin 3.4. ASSESSMENT AND PLAN: 1. Acute respiratory failure secondary to pneumonia: We have initiated BiPAP and we will consult Pulmonary. Will continue breathing treatments, antibiotics, and aggressive pulmonary toilet. The patient may need intubation in the near future. 2. Healthcare-associated pneumonia: Given her discharge yesterday, we will need to cover her for Methicillin-resistant Staphylococcus aureus plus typical organisms, so we will use cefepime and Zyvox. She does have renal failure. 3. Sepsis secondary to pneumonia: Continue treatment as outlined above. 4. Acute kidney injury: Creatinine 1.9 and her volume status is stable. Nephrology is following, but they are going to hold off on dialysis today, as she is septic and is likely to need her fluid volume status. 5. Transaminitis: Improved. Likely exacerbated by sepsis. We will continue to monitor. 6. Deep vein thrombosis prophylaxis with heparin. Further recommendations to follow. Dictated by MELITON Mathis for Costa Doll MD cc: MELITON Mathis MD I have seen and examined patient. i agree with the above evaluation and plan. Please refer to my progress notes. philly BENÍTEZ
[2016-08-25 15:49] LABS: URINE MICRO REVIEW NEEDED? NO; URINE SOURCE CATH
--- NOTE | 2016-08-25 15:51 | CONSULTATION ---
DATE OF CONSULTATION: 08/25/2016 REASON FOR ADMISSION: Dyspnea. Shortness of breath. REASON FOR CONSULTATION: Assist with ESRD management. CONSULTING PHYSICIAN: Dr. Doll. HISTORY OF PRESENT ILLNESS: This is a 61-year-old female well known to our service for AURY without recovery/end-stage renal disease on hemodialysis. She was started on hemodialysis within the last 2 weeks here at [facility] for AURY in the context of acute hepatocellular injury. She was discharged from the hospital on the after we started dialysis. She was supposed to present to the dialysis clinic today. The patient this morning woke up with severe shortness of breath and pain. She was transported to the emergency room in [place] and was subsequently transferred here. On arrival here she continued to have severe shortness of breath and back pain. We were unable to read the chest x-ray imaging CD that was sent from [place]. We repeated her chest x-ray and kalia stat blood cultures as she was noted to have a white count of 18. The chest x-ray here indicated develop infiltrates to the mid lower right lung. She had no pleural effusion. She went for a follow up CT immediately afterward. They indicated multifocal bilateral infiltrates and small pleural effusion. Her creatinine is currently 1.9, potassium is currently 3.7. The patient has been transitioned now over to a BiPAP and her blood pressure has started to drop. She has been admitted for pneumonia and sepsis and is being treated according to sepsis/PNA protocol per the primary. PAST MEDICAL HISTORY: 1. Acute kidney injury requiring hemodialysis in the context of acute hepatocellular injury. We were planning to dialyze her today as an outpatient, and recollect labs on Saturday to determine if she had any renal recovery. 2. Transaminitis, steatohepatitis and superimposed ischemic hypoxic liver. 3. Klebsiella pneumonia urinary tract infection. 4. History chronic obstructive pulmonary disease. 5. Hypertension. 6. GERD. 7. Leukopenia followed by hematology. 8. Depression. HOME MEDICATIONS: Have not been reconciled yet. The patient has been dosed with Zyvox and cefepime waiting on blood cultures. ALLERGIES: None. SOCIAL HISTORY: She was recently sent to rehab in [place]. She was a half pack a day smoker for 50 years. Some social alcohol use. FAMILY HISTORY: Chronic kidney disease but no ESRD. REVIEW OF SYSTEMS: Severe dyspnea, back pain, chest pain. PHYSICAL EXAM: Vital Signs: Temperature 97.4 degrees, pulse 123, respiratory rate 41, blood pressure was 152/106, her systolic has dropped to 130s. She is currently on BiPAP. HEENT: Normocephalic, atraumatic. Again she is on BiPAP. Neck: Supple. Trachea midline. Cardiovascular: Tachycardic. Pulmonary: She has coarse rhonchi, rales, wheeze bilaterally. She is tachypneic. She again has been placed on BiPAP. Abdomen: Soft, positive bowel sounds. : Not inspected. Extremities: She has trace to 1+ pretibial edema. No clubbing, cyanosis. Neuro: Grossly nonfocal previously. Integumentary: Skin is warm and dry. LAB DATA: WBC of 18.01, hemoglobin 10.8, hematocrit 31.7, platelet count of 431 ,000. Sodium 139, potassium 3.7, chloride 99, CO2 21, BUN 18, creatinine 1.9, calcium 9.0, AST 34, ALT 109, alkaline phosphatase 119, troponin T 0.15, BNP 12,335, albumin 3.4. ABGs on 4 L nasal cannula prior to going on BiPAP pH of 7.4, pCO2 of 34, PO2 of 66, bicarb of 24.3 and base excess of -7, lactate of 1.4. IMAGING: As above noted. ASSESSMENT AND PLAN: 1. Acute kidney injury/end-stage renal disease. Her creatinine and potassium are acceptable as well as her CO2 and BUN. Her blood pressure is currently dropping and she is not grossly fluid overloaded. We will hold dialysis at this time. Likely she will need the fluid volume that she has now to maintain her blood pressure. Will reevaluate in the morning. 2. Pneumonia with sepsis. Followed by primary. Patient has been placed on a BiPAP. She still extremely tachypneic. Blood pressure is dropping. She has blood cultures ordered and sputum cultures ordered. She is on appropriately dosed antibiotics. No changes needed. 3. Hypertension. Again her blood pressures are currently falling. Continue to monitor. 4. Electrolytes, acid-base balance, anemia. See #1 for plan. Thank you for the consult. Dictated by MELITON Qureshi for Jonathan Jordan MD cc: MD Costa Parada MD MTDD
--- NOTE | 2016-08-25 16:13 | CONSULTATION ---
DATE OF CONSULTATION: 08/25/2016 Thank you very much for asking me to see this very kind 61-year-old female, I am pleased to assist in her care. DIAGNOSES: 1. Right lower lobe hospital-acquired pneumonia. 2. Acute renal failure. 3. Respiratory failure. 4. Chronic obstructive pulmonary disease. 5. Hypertension. RECOMMENDATIONS: She will be given supplemental oxygen inhaled beta agonist as well as broad- spectrum antibiotics. Will monitor her gas exchange. Gingerly give her some fluid. Monitor her work of breathing. We will follow closely along with you. HISTORY: This very pleasant, 61-year-old female, was admitted to [facility] on 08/16/2016. She was felt to be septic and developed acute renal failure. At that point, was placed on hemodialysis. She failed to recover and has been maintained. She missed dialysis yesterday morning, and was admitted to [facility] where she was transferred here and subsequently dialyzed last night. She developed increasing work of breathing, cough and respiratory hypoxemia. Was placed on BiPAP. I am consulted to assist in her care. MEDICAL HISTORY: She is a smoker of approximately 60 pack year history having continued to smoke up until the time of her current admission. She also has a history depression, hypertension, GI reflux and a previous hysterectomy. SOCIALLY: She lives at home. She does drink alcohol. She is a smoker. FAMILY HISTORY: Positive for father had lung cancer. Mother had ischemic heart disease. She has a brother with cancer. REVIEW OF SYSTEMS: Except for the features mentioned above are negative for weight loss, night sweats, weakness or anorexia. No ENT symptoms of odynophagia, dysphagia, epistaxis or painful swallowing. No eye symptoms of blindness, blurring, diplopia. No other cardiac or pulmonary symptoms other than mentioned. No nausea, vomiting, constipation, diarrhea. No hematuria, polyuria, nocturia, dysuria. No joint or muscle pain, stiffness, swelling. No skin rashes, itching, bruises, no seizures, loss of consciousness or paralysis. Except for the features mentioned above, all other symptoms on the review of systems are negative. PHYSICAL EXAMINATION: Vital Signs: Blood pressure is 118/85, with pulse 118, respirations 32, temperature 98.2. HEENT: Exam reveals no thyromegaly or adenopathy. Pupils are equal and reactive. Extraocular muscles are intact. Neck: Supple. No bruits. No thyromegaly. No JVD. Chest: Reveals bilateral equal breath sounds with some prolongation of expiratory phase and forced expiratory wheezes. Cardiac Exam: Reveals a regular rhythm without an appreciable murmur. Abdomen: Soft. Skin: Warm and dry. Neurologically: She is grossly nonfocal. DIAGNOSTIC STUDIES: The chest radiograph and CT scan show infiltrate in the right lower lung with some parahilar edema. White count is 18,010 with a hemoglobin 10.8, hematocrit 31.2, platelets of 451,000. Sodium is 139, potassium 3.9, chloride 99, CO2 of 21, BUN 18, creatinine 1.9, glucose 177. ABG shows a 7.44 pH, 36 CO2 and 83 of O2. cc: Costa Doll MD
[2016-08-25 16:15] LABS: BILIRUBIN URINE NEGATIVE (NEGATIVE); BLOOD URINE NEGATIVE (NEGATIVE); COLOR YELLOW; GLUCOSE URINE NEGATIVE (NEGATIVE); LEUKOCYTES URINE NEGATIVE (NEGATIVE); NITRITE URINE NEGATIVE (NEGATIVE); PROTEIN URINE TRACE mg/dL (NEGATIVE); SP GRAVITY URINE 1.009; TURBIDITY URINE CLEAR (CLEAR); UROBILINOGEN URINE NORMAL (NORMAL)
[2016-08-25 16:16] LABS: UR EPITHELIAL CELLS <10 /HPF (<10); URINE BACTERIA NEGATIVE /HPF; URINE RBC <10 /HPF (<10); URINE WBC <10 /HPF (<10)
[2016-08-25] MEDS: HEPARIN SUBQ SCH (20:47)
[2016-08-25] MEDS: ZYVOX 600 MG/D5W 600 MG/300 ML IVPB IV SCH (23:22)
[2016-08-25] MEDS: MAXIPIME 1 GM/NS 1 GM/50 ML IVPB IV SCH (23:22)
[2016-08-26] MEDS: ATIVAN IV PRN ×3 (02:16→19:17)
[2016-08-26] MEDS: DUONEB (A & A) INH SCH ×6 (03:37→23:43)
[2016-08-26 06:37] LABS: HEMATOCRIT 27.4 % (37.0-47.0); MCH 32.4 PG (27-31); MCHC 32.8 g/dL (33-37); MCV 98.6 FL (81-99); MPV 9.6 FL (7.4-10.4); RBC 2.78 XMIL (4.2-5.4)
[2016-08-26 06:40] LABS: ALBUMIN 3.1 g/dL (3.5-5.0); CALCIUM 8.7 mg/dL (8.8-10.2); POTASSIUM 3.5 mmol/L (3.5-5.1)
[2016-08-26] MEDS: MORPHINE IV PRN ×3 (07:04→20:42)
[2016-08-26] MEDS ORDERED: BLISTEX MEDICATED BERRY LIP BALM TOP PRN (07:11)
[2016-08-26] MEDS: HEPARIN SUBQ SCH ×2 (08:30→20:42)
[2016-08-26] MEDS: ZYVOX 600 MG/D5W 600 MG/300 ML IVPB IV SCH ×2 (10:29→23:33)
[2016-08-26] MEDS: MAXIPIME 1 GM/NS 1 GM/50 ML IVPB IV SCH ×2 (10:29→23:00)
[2016-08-26] MEDS: SOLU-MEDROL IV SCH ×2 (10:30→17:13)
--- NOTE | 2016-08-26 10:49 | Diag Imaging Result Doc PS360 ---
EXAM: CHEST-PORTABLE HISTORY: PNA TECHNIQUE: Portable upright AP COMPARISON: 08/25/2016 FINDINGS: No change in the double lumen right jugular line. There are increased interstitial markings in the lungs believed to be pulmonary edema although there could be underlying pneumonia. The infiltrates are fairly similar to that of the prior exam. No pleural effusions identified. The heart is not enlarged. IMPRESSION: Stable chest. Electronically signed by Clark Crabtree 08/26/2016 10:47 AM
--- NOTE | 2016-08-26 11:21 | PROGRESS NOTE ---
DATE: 08/26/2016 SUBJECTIVE: Today Ms. Serrato refers to be doing a little better. Breathing has significantly improved. She is however still on the BiPAP and she is saturating about 99%. OBJECTIVELY: Vital signs: Blood pressure is 114/76, pulse is 89, respiration is 16. The patient is saturating 99/98%. Temperature is 98.6 degrees. General Appearance: Ms. Serrato is a 61-year- old female. She is in bed, on the BiPAP. She is not in any distress. HEENT: Mucosa is pink and moist. Anicteric. Acyanotic. Neck: Supple. Chest: Air entry is bilaterally reduced. I did not hear any crepitations, but there was end expiratory wheezing bilaterally, more so on the right posterior lung field with prolonged expiration phase of respiration. LABORATORY DATA: WBC is down to 10.13, hemoglobin is 9.0, platelet count of 232,000. Chemistry: Sodium is 141, potassium is 3.5, chloride is 102, bicarb is 26, creatinine is 2.0, phosphorus is 4.4. Albumin is 3.1. Troponin has gone back to normal at 0.054 from [address] scan of the chest done yesterday shows interval development of multifocal bilateral infiltrates and small pleural effusions. This morning, a repeat chest x-ray continues to show bilateral infiltrate, more dense on the right, but this seems to be slight improvement in the density on the right, so I am not quite sure if it is due to technique. CURRENT MEDICATIONS: 1. Albuterol nebs. 2. Cefepime 1 g q.12. 3. Heparin for deep venous thrombosis prophylaxis. 4. Levofloxacin 250 every 48 hours. 5. Zyvox 600 mg q.12. 6. Lorazepam. 7. Morphine p.r.n. I OS: The patient a total urine output of 950, negative of 150. A B-type natriuretic peptide which was done shows 12,335 on admission. ASSESSMENT: 1. Acute hypoxemic respiratory failure secondary to pulmonary infiltrates. 2. Bilateral pulmonary infiltrates likely due to pneumonia and pulmonary edema. 3. Right dense middle lobe consolidation, suspicious for hospital acquired pneumonia. 4. Acute kidney injury which never recovered. The patient needed dialysis on previous admissions; however, kidney functions seems to be progressively getting better. Electrolytes are normal. Creatinine is between 1.9 yesterday, 2.0 today. We will going to keep eye on this. I do not think she needs any acute dialysis now. 5. Bronchospasms. The patient has significant wheezing in the lungs, which I think it is a combination of the underlying pulmonary infection, as well as the effusions. However, the patient also had a history of chronic obstructive pulmonary disease and significant history of smoking in the past. I think this could be some element of chronic obstructive pulmonary disease exacerbation as well. She is getting nebulization. Will add steroids to her therapy. 6. Mild troponin elevation on presentation, likely due to demand ischemia. Troponin's are trending down. 7. Diastolic heart failure with B-type natriuretic peptide more than 12,000. I think this is probably due to the acute lung disease and the tachycardia that she was in when she came in. The patient had an echo this morning. Will be pending the official reading on her ejection fraction. So, in general, I think Ms. Serrato is doing a lot better today. We will continue with the BiPAP. Will will take this off for her to eat whenever possible and then put her back. We will keep her in the ICU. Continue with the current antibiotics and also the steroids and bronchodilation therapy. The patient has been evaluated by Pulmonary Medicine and also by Nephrology and we appreciate their input in the care of the patient. cc: Costa Doll MD
[2016-08-26] MEDS ORDERED: CELEXA PO ONE (13:46)
--- NOTE | 2016-08-26 14:02 | PROGRESS NOTE ---
DATE: 08/26/2016 SUBJECTIVE: Patient sitting up in bed. She is off BiPAP. She is now on nasal cannula. She is awake and alert and able to assist with a bath and bed change. OBJECTIVE: Vital Signs: Temperature 98.6 degrees, pulse 89, respiratory rate 15, blood pressure 111/70, intake 800 mL, output 950 mL. This was all urine output. General: This is a middle-aged female resting in bed. She is awake and alert. No acute distress. HEENT: Normocephalic, atraumatic. Her oral mucosa is moist. Conjunctivae pink. Neck: Supple. No JVD. Cardiovascular: Regular rate and rhythm. Pulmonary: She has equal excursion. She has occasional wheeze bilaterally. She is on O2 supplementation via nasal cannula at this time. She has no increased work of breathing. Abdomen: Soft with positive bowel sounds. : Not inspected. She has a Verduzco catheter. Extremities: There is no clubbing, cyanosis or edema. LABORATORY DATA: WBC of 10.1, hemoglobin 9.0. Sodium 141, potassium 3.5, CO2 26, BUN 22, creatinine 2.0 (1.9), calcium 8.7, albumin 3.1. Urinalysis negative. ASSESSMENT AND PLAN: 1. Acute kidney injury without complete recovery however dialysis is not warranted at this time. Her urine output is excellent and renal function has remained stable now without dialysis for a couple of days even in the context of this acute hypoxic respiratory failure and pneumonia. Will recheck labs in the morning and make decisions regarding continue dialysis needs. 2. Hypoxic respiratory failure secondary to pulmonary infiltrates, pneumonia. Patient has had a significant improvement overnight. Yesterday her respiratory status was quite tenuous. Today she is improved greatly. Followed by primary. She is on appropriately dosed antibiotics. She is on cefepime and Levaquin and Zyvox. 3. Electrolytes, acid-base balance. These are all acceptable. 4. Fluid volume. She was actually in negative territory overnight. She had excellent urine output. Dictated by MELITON Qureshi for Jonathan Jordan MD cc: MD Costa Parada MD
[2016-08-26] MEDS ORDERED: CARDIZEM IV ONE (17:04)
[2016-08-27] MEDS: MORPHINE IV PRN ×4 (01:00→19:51)
[2016-08-27] MEDS: SOLU-MEDROL IV SCH ×3 (02:14→17:19)
[2016-08-27] MEDS: DUONEB (A & A) INH SCH ×6 (03:40→23:23)
[2016-08-27 06:35] LABS: HEMATOCRIT 26.5 % (37.0-47.0); HEMOGLOBIN 8.9 g/dL (12.0-16.0); MCH 33.2 PG (27-31); MCHC 33.6 g/dL (33-37); MCV 98.9 FL (81-99); MPV 10.3 FL (7.4-10.4); RBC 2.68 XMIL (4.2-5.4)
[2016-08-27 06:55] LABS: ALBUMIN 3.2 g/dL (3.5-5.0); CALCIUM 7.9 mg/dL (8.8-10.2); POTASSIUM 3.7 mmol/L (3.5-5.1)
--- NOTE | 2016-08-27 07:18 | Diag Imaging Result Doc PS360 ---
CHEST-PORTABLE - 08/27/2016 INDICATION: dyspnea TECHNIQUE: COMPARISON: 08/26/2016 FINDINGS: Stable right-sided dialysis catheter. Lung volumes are much improved. There is improvement in the ill-defined, multilobar right-sided infiltrates. The left lung is grossly clear. Heart size and pulmonary vascularity is top normal. IMPRESSION: Improved lung volumes. Improved multilobar infiltrates on the right. Electronically signed by Shad Salmeron 08/27/2016 7:16 AM
[2016-08-27] MEDS ORDERED: NS 2,000 ML MISC PRN (07:50)
[2016-08-27] MEDS ORDERED: TIGHT: 0.2 ML/HR MISC PRN (07:50)
[2016-08-27] MEDS ORDERED: HEPARIN IV PRN (07:50)
[2016-08-27] MEDS: ATIVAN IV PRN ×4 (08:26→23:49)
[2016-08-27] MEDS: HEPARIN SUBQ SCH ×2 (08:27→20:01)
[2016-08-27] MEDS: CELEXA PO SCH (08:27)
[2016-08-27] MEDS: MAXIPIME 1 GM/NS 1 GM/50 ML IVPB IV SCH ×2 (09:22→23:00)
--- NOTE | 2016-08-27 10:10 | ECHO REPORT ---
ORDER DATE: 08/25/2016 INTERPRETING PHYSICIAN: Dr. Quintero REQUESTING PHYSICIAN: CLINICAL INDICATIONS: This is a 61-year-old female with CHF, acute renal failure. M-MODE MEASUREMENTS: Right ventricle: 3.0 cm. Left ventricle end diastole: 4.8 cm. Left ventricle end systole: 3.8 cm. Posterior wall: 1.9 cm. Interventricular septum: 1.9 cm. Left atrium: 3.9 cm. Aortic root: 2.7 cm. Inferior vena cava: 2.3 cm. SUMMARY OF 2-DIMENSIONAL IMAGIN. The global left ventricular systolic function is mild to moderately decreased. Ejection fraction is 45%. There is wall motion abnormality involving the apical segments of the entire left ventricle including the mid to apical anterior wall, mid to apical posterolateral wall, the apical inferior wall and the apical septal segment. This is consistent with the apical ballooning syndrome or takotsubo syndrome or a stress related cardiomyopathy. No thrombus is noted. The chamber is not dilated. 2. Right ventricle appears to be normal. 3. The aortic valve looks normal. Color flow mapping is unremarkable. 4. The mitral valve looks normal. Color flow mapping is unremarkable. 5. Tissue Doppler of septal and lateral mitral annulus averages 6 cm. 6. Pulmonary venous flow is normal. 7. The pulse wave Doppler of mitral inflow is normal. 8. There is no diastolic dysfunction. 9. The tricuspid valve showed mild degree of regurgitation. 10.The pulmonary pressure is estimated at 37 mmHg up to 42 mmHg. 11.Pulmonic valve looks normal. Color flow mapping is unremarkable. 12.There is no pericardial effusion, mass or thrombus. 13.The left atrium and right atrium are probably at the upper limits of normal. CONCLUSIONS: 1. Mild to moderately impaired left ventricular function. Ejection fraction is 45% with wall motion abnormality that appears to be typical of takotsubo cardiomyopathy. 2. No evidence of valvular abnormalities of any significance. 3. No diastolic dysfunction. 4. Pulmonary pressure elevated in the range of 37 to 42 mmHg. Clinical correlation is recommended. cc: MD Costa Watts MD
[2016-08-27] MEDS ORDERED: CARDIZEM PO SCH (10:30)
[2016-08-27] MEDS: ZYVOX 600 MG/D5W 600 MG/300 ML IVPB IV SCH ×2 (10:44→23:49)
--- NOTE | 2016-08-27 10:44 | EKG Report ---
Test Performed on : 08/25/2016 09:56:18 AM Test Reason : ICU 6. Not ordered in [place] Blood Pressure : / mmHG Vent. Rate : 121 BPM Atrial Rate : 121 BPM P-R Int : 150 ms QRS Dur : 074 ms QT Int : 308 ms P-R-T Axes : 055 021 012 degrees QTc Int : 437 ms Sinus tachycardia. Nonspecific ST and T wave abnormality Abnormal ECG When compared with ECG of 25-AUG-2016 09:54, (Unconfirmed) Sinus rhythm. has replaced Junctional rhythm. Confirmed by Michell Olmstead MD ([id number]) on 08/28/2016 12:25:23 PM
[2016-08-27] MEDS: LEVAQUIN 250 MG/D5W 250 MG/50 ML IVPB IV SCH (12:59)
--- NOTE | 2016-08-27 13:57 | PROGRESS NOTE ---
DATE: 08/27/2016 SUBJECTIVE: Today Ms. Serrato referred to be doing a whole lot better. She is in bed. OBJECTIVE: Vital signs: Blood pressure 127/80, pulse of 100, respirations 20, temperature 97.8 degrees. General: Ms. Serrato is a 61-year-old female. She is in bed. Is not in any distress. HEENT: Mucosa is pink and moist. Anicteric. Acyanotic. Neck: Supple. Chest: Air entry is bilaterally reduced. There is diffuse bilateral end expiratory wheezing, more so in the right lung field. Cardiovascular: Tachycardic, but regular rate. No murmurs, no rubs, no gallops. Abdomen: Soft, nontender. Extremities: No pedal edema. SLUBBER HAND: Patient is awake and alert and oriented x4. There is no focal neurological deficit. LABORATORY DATA: WBC is 7.23, hemoglobin is 8.9, platelet count is 273,000. Chemistry is reviewed. Creatinine is down to 1.8. Troponin's have been negative. So far, blood cultures have been negative. Urine culture is also negative. I OS: The patient had a urine output of 1050. A chest x-ray this morning shows improved lung volumes, improved multilobar infiltrates on the right. CURRENT MEDICATIONS: 1. Albuterol nebs. 2. Cefepime 1 g q.12 hourly. 3. Celexa. 4. Levofloxacin 250 q. 48 hourly. 5. Vioxx 600 q.12. 6. Methylprednisolone 40 mg IV q.8. ASSESSMENT: 1. Acute hypoxemic respiratory failure secondary to pulmonary infiltrates. 2. Bilateral pulmonary infiltrates, likely due to pneumonia and pulmonary edema. 3. Right dense middle lobe consolidation suspicious for hospital acquired pneumonia versus aspiration pneumonia. 4. Acute kidney injury. The patient had to be on dialysis; however, she is currently not receiving any dialysis and creatinine, is improving. 5. Bronchospasms, likely due to aspiration pneumonia versus chronic obstructive pulmonary disease exacerbation, improving. 6. Mild troponin elevation on presentation, likely due to ischemic demand. 7. Diastolic heart failure, improved. So, in general, I think Ms. Serrato is getting better. Ms. Serrato was discharged from the hospital on 08/24/2016 after she was here for about a week. On that occur occasion, she was treated for septic shock with ischemic liver injury and acute tubular necrosis, which the kidney never recovered, so she was started on dialysis. She was stable and discharged. However, a day after she came back with what appear to be acute respiratory failure from pulmonary edema end dense right middle lobe infiltrate, which we think is probably due to aspiration. In any case, Ms. Serrato is doing a lot better today. We are going to transfer her from the ICU to regular floor. DISPOSITION: When she was here the last time, we wanted to send her to rehab; however, she does not have insurance still no rehab would take her. She was going to go home with home health. I think this time around we will going to be a little bit more cautious, make sure that her pulmonary disease is a whole lot better, since she does not have any other help at home. cc: Costa Doll MD Addendum: echo report reviewed. Patient has EF 45% with echocardiographic evidence of Takotsubo cardiomyopathy. Will consult Cardiology for ischemic work up. Suspect patient possibly presented due to acute pulmonary edema from acute congestive heart failure due to takotsubo cardiomyopathy. JACKELIN
--- NOTE | 2016-08-27 14:07 | CONSULTATION ---
DATE OF CONSULTATION: 08/27/2016 INDICATION FOR THE CONSULTATION: Shortness of breath. Elevated troponin. Abnormal echocardiogram. HISTORY OF PRESENT ILLNESS: Ms. Serrato is a 61-year-old white female, who had an apparent discharge from the hospital service on the after a prolonged hospitalization with sepsis, likely due to a urinary source, as well as a profound transaminitis and renal failure. She was discharged with a dialysis catheter in place; however, has not required dialysis since last Saturday when she was in the hospital. She apparently presented to [facility] on the with complaints of acute shortness of breath that occurred when she got up to go to the restroom in the evening and on the way back to the bed. She was brought into the ER and was found to have what appeared to be a pneumonia with an elevated white count. She was started on antibiotics and transferred over to the [facility] ICU. CT scan demonstrated what appeared to be multifocal infiltrates, consistent with multilobar pneumonia. Creatinine and transaminases have continued to be much improved compared to the last hospitalization. She initially required BiPAP and presently is on nasal cannula. She has not had any episodes of chest pain and no heart racing during the course of this hospitalization. PAST MEDICAL HISTORY: 1. Significant for acute kidney injury at the time of her last hospitalization with subsequent chronic kidney disease, briefly requiring hemodialysis. 2. 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 3. History of Klebsiella urinary tract infection, resulting in sepsis. 4. Chronic obstructive pulmonary disease. 5. Reflux. SOCIAL HISTORY: She has smoked for around 50 years. Per her sister, she apparently drinks alcohol and apparently recently had been on a binge. That may have been prior to that previous hospitalization. No illicit drug use. FAMILY HISTORY: Significant for lung cancer, colon cancer, gastric cancer, brain cancer, chronic kidney disease, and hypothyroidism. REVIEW OF SYSTEMS: A 10 system review of systems is negative, except for those things mentioned in history of present illness. PHYSICAL EXAMINATION: Vital signs: Afebrile. Her heart rates more recently seemed to be in the 90s to low 100s. Her blood pressure is 126/73. Her I's and O's were reviewed. For this hospitalization seem relatively flat, previous hospitalization had a balance of -4.9 L. General Appearance: Generally in no acute distress. HEENT: Oropharynx is moist. Poor dentition. Eye examination shows pink conjunctivae. White sclerae. Neck Examination: Shows no obvious thyromegaly or thyroid tenderness. Cardiovascular: She sounds to be in a regular rhythm with a mildly tachycardic rate. Her current telemetry shows rates in the low 100. She has no lower extremity edema. Chest: Her chest exam has some reduced breath sounds notable diffusely. No increased work of breathing. Abdomen: Soft, nontender, nondistended. She has no obvious organomegaly. Skin Examination: Warm and dry throughout without any rashes. Neurological: She is moving all extremities well. Cranial nerves 2-12 are intact without any sensation deficits. Psychiatric: Alert, oriented, and pleasant. She has normal mood and affect. PERTINENT DATA: She has an EKG which most recently seems to show sinus rhythm. It does have somewhat diffuse T-wave inversions noted in the anterior septum. This appears different compared her EKG on the , which showed sinus rhythm with nonspecific T-wave flattening. She has had some EKGs which have questionable P-waves present; however, it is unclear if this is atrial fibrillation versus possibly a multifocal atrial tachycardia. White count is 7.2. Initial on the was 18, hematocrit 26.5, platelet count 273,000. Sodium is 132, potassium 3.7, her BUN is 22, with a creatinine of 1.8. Her proBNP on presentation was 12,335. She had a chest x-ray today demonstrating improved lung volumes with improvement in multilevel infiltrates on the right. Her echocardiogram demonstrates an ejection fraction of 45% with apical wall motion, consistent with a takotsubo cardiomyopathy. Pulmonary pressure of around 40 mmHg. ASSESSMENT: 1. Elevated cardiac enzymes, possibly suggestive of demand ischemia versus possible acute coronary syndrome. 2. Reduced ejection fraction, possibly indicating stress cardiomyopathy. 3. Recent bout of acute renal insufficiency. 4. Recent bout of profound transaminitis. 5. Recent episode of sepsis, with now what appears to be a multi-lobar pneumonia. PLAN: I will stop her diltiazem and place her on metoprolol 25 mg q.6h hours. I will recheck a BMP in the morning. Her pro-B-type natriuretic peptide on presentation was significantly elevated. Her oxygenation seems to have improved significantly since presentation, as she was requiring BiPAP. Her echocardiogram findings are noted, as well as her elevated enzymes and electrocardiogram abnormalities. She likely will require an ischemia evaluation prior to discharge, possibly heart catheterization; however, that will need to be timed appropriately with consideration of her significant renal dysfunction. cc: MD Costa Broussard MD
[2016-08-27] MEDS: LOPRESSOR PO SCH ×2 (14:36→19:57)
[2016-08-27] MEDS: ASPIRIN PO SCH (14:37)
--- NOTE | 2016-08-27 14:56 | PROGRESS NOTE ---
DATE: 08/27/2016 ADDENDUM: I just reviewed the echo report on Ms. Serrato, which shows ejection fraction of 45% with wall motion abnormality that appears to be typical of takotsubo cardiomyopathy and also posterior wall 1.9, interventricular septum 1.9 m consistent with concentric hypertrophic cardiomyopathy. Taking into consideration the acute nature of her presentation , I think she was acute congestive heart failure, likely secondary to some takotsubo cardiomyopathy. However, we cannot completely rule out the possibility of an underlying coronary artery disease. I also understand she had an episode of atrial fibrillation/rapid ventricular rate one time which reverted with one time dose of diltiazem. Her pulse continued to be consistently on the higher end. I am going to start her on diltiazem 30 mg p.o. 6 hourly and not beta- viviane due to the bronchospasm and suspected hyperreactive airway. Will also get cardiology to evaluate her for possible coronary artery disease. Patient is on heparin for deep venous thrombosis prophylaxis until she gets to see cardiology and they will decide on her high risk for stroke from the atrial fibrillation/rapid ventricular rate, which was just one time dose. cc: Costa Doll MD MTDD
--- NOTE | 2016-08-27 15:48 | PROGRESS NOTE ---
DATE: 08/27/2016 SUBJECTIVE: Patient is sitting up in bed eating breakfast. She has no complaints. Her breathing is much improved. OBJECTIVE: Vital Signs: Temperature 97.8 degrees, pulse 93, respiratory 20, blood pressure 127/80, intake 1.5 L. Output 1 L of urine output. General: This is a middle- aged female, sitting up in bed. Awake alert. She has no acute distress. HEENT: Normocephalic atraumatic. She is on O2 supplementation via nasal cannula. Oral mucosa is moist. STEFFANY. Conjunctivae pink. Neck: Supple. No JVD. Cardiovascular: She has a regular rate and rhythm without murmur or gallop noted. Pulmonary: She has occasional rhonchi bilaterally, but no wheeze noted. She remains on O2 supplementation. She has no increased work of breathing. Abdomen : Soft, with positive bowel sounds. : Not inspected. Verduzco catheter noted. Extremities : No clubbing, cyanosis or edema. Integumentary: Tunnel dialysis catheter noted right upper chest wall. LABORATORY DATA: WBC of 7.2, hemoglobin 8.9. Sodium 132, potassium 3.7, CO2 24 , BUN 22, creatinine 1.8. ASSESSMENT AND PLAN: 1. Acute kidney injury without complete renal recovery. Dialysis remains unneeded. The patient has had enough recovery that she can have her tunnel dialysis catheter removed and we will continue to follow her as chronic kidney disease. I will ask Dr. Watt to see the patient. 2. Hypoxic respiratory failure secondary to pulmonary infiltrates and pneumonia. There is some questions if this was not an aspiration pneumonia. The patient has had a dramatic improvement. Followed by primary. 3. Electrolytes, acid-base balance. These are in target. 4. Fluid volume. Her urine output is excellent. Seen, data reviewed, discussed with Lizeth Pastor on 08/27/16. I agree with the above assessment and plan of care. rg Dictated by MELITON Qureshi for Jonathan Jordan MD cc: MD Costa Parada MD [facility] PARTNERSAnabela
[2016-08-27] MEDS ORDERED: LOPRESSOR PO SCH (21:00)
[2016-08-28] MEDS: SOLU-MEDROL IV SCH ×3 (02:10→17:35)
[2016-08-28] MEDS: LOPRESSOR PO SCH ×4 (02:10→21:03)
[2016-08-28] MEDS: MORPHINE IV PRN ×4 (02:34→21:41)
[2016-08-28] MEDS: DUONEB (A & A) INH SCH ×6 (03:24→23:05)
[2016-08-28 05:31] LABS: HEMATOCRIT 27.5 % (37.0-47.0); HEMOGLOBIN 9.3 g/dL (12.0-16.0); MCH 31.8 PG (27-31); MCHC 33.8 g/dL (33-37); MCV 94.2 FL (81-99); MPV 9.7 FL (7.4-10.4); RBC 2.92 XMIL (4.2-5.4)
[2016-08-28] MEDS: ATIVAN IV PRN ×2 (05:38→13:02)
[2016-08-28 05:48] LABS: ALBUMIN 3.2 g/dL (3.5-5.0); POTASSIUM 4.2 mmol/L (3.5-5.1)
--- NOTE | 2016-08-28 07:20 | Diag Imaging Result Doc PS360 ---
EXAM: CHEST-PORTABLE HISTORY: dyspnea TECHNIQUE: AP portable at 0500 COMMENT: There is a right internal jugular central venous catheter with its tip just above the right atrium. There has been improvement in the pulmonary edema or pneumonia seen previously in the parahilar portions of the right upper and lower lobes. Otherwise has been no significant change. IMPRESSION: Improved right-sided pneumonia Electronically signed by Skyler Alexander 08/28/2016 7:18 AM
[2016-08-28] MEDS: CELEXA PO SCH (08:18)
[2016-08-28] MEDS: ASPIRIN PO SCH (08:18)
[2016-08-28] MEDS: HEPARIN SUBQ SCH ×2 (08:19→21:03)
[2016-08-28] MEDS ORDERED: SAMSCA PO ONE (08:25)
--- NOTE | 2016-08-28 08:59 | PROGRESS NOTE ---
DATE: 08/28/2016 SUBJECTIVE: Ms. Serrato reports that she is doing better. She seems to be breathing better and her O2 requirement has dropped. PHYSICAL EXAMINATION: Vital Signs: She is afebrile. Her heart rate is in the 70s to 80s. Blood pressure 128/77. I's and O's for the course of this hospitalization have been roughly flat with a slight positivity of 725 mL. General: She is in no acute distress. Cardiovascular: Regular rate and rhythm. No murmurs. No S3. Heart rates in the 80s at the time my examination. She has no lower extremity edema. Chest Examination: Has mild end-expiratory wheezes. No increased work of breathing. Abdomen: Soft, nontender. PERTINENT DATA: Sodium is 126, potassium is 4.2, BUN is 29, creatinine 1.7. ProBNP is 19,487. Hers CBC was reviewed with a white count of 7.7 and hematocrit 27.5. ASSESSMENT: 1. Possible takotsubo cardiomyopathy with a mild reduction in ejection fraction of 45% with elevated cardiac enzymes. 2. Recent acute renal insufficiency with roughly stable creatinines. 3. Pneumonia. 4. Hyponatremia. PLAN: I will dose her with Samsca 15 mg today. We will consider diuresis in the near future. We will not place her on a fluid restriction considering her dose of Samsca. cc: MD Costa Broussard MD
[2016-08-28] MEDS: MAXIPIME 1 GM/NS 1 GM/50 ML IVPB IV SCH ×2 (09:13→21:15)
[2016-08-28] MEDS: ZYVOX 600 MG/D5W 600 MG/300 ML IVPB IV SCH ×2 (10:19→22:04)
[2016-08-28] MEDS: KLONOPIN PO SCH ×2 (14:29→21:03)
--- NOTE | 2016-08-28 15:52 | PROGRESS NOTE ---
DATE: 08/28/2016 SUBJECTIVE: Patient reports feeling better. Denies any chest pain, any sensation of palpitations, just shortness of breath when she does some minor exercise, like for example going to the bedside commode and going back to the bed. Denies any fever or chills. OBJECTIVE: Vital Signs: Temperature 97.2 degrees, heart rate 81, respiratory rate 18, blood pressure 128/71, O2 saturation 94% on 2L nasal cannula. General: This is a chronically ill- looking, 61-year-old female lying in bed in no acute distress. HEENT: Head is normocephalic and, atraumatic. Anicteric sclerae and pale conjunctivae. Mucous membranes dry. Neck: Supple. No JVD noted. No carotid bruits. No lymphadenopathy. No thyromegaly. Cardiovascular: S1 and S2 heard. No murmur, gallops, or rubs. Regular rate and rhythm. Respiratory: There is still some wheezing and mild crackles in both pulmonary bases. Patient is not using any accessory muscles or having work of breathing. Abdomen: Soft and nontender to palpation. Bowel sounds present. No organomegaly. Extremities: No clubbing, cyanosis, or edema. Peripheral pulses present in both legs. Neurological: Patient is alert and oriented x3. Moves 4 extremities. Cranial nerves 2-12 grossly normal. LABORATORY DATA: White cell count 7.71, hemoglobin 9.3, hematocrit 27.5, and platelets 335,000. BMP shows sodium 126, potassium 4.2, chloride 90, bicarbonate 22, BUN 29, creatinine 1.7. proBNP in 19.487. ASSESSMENT AND PLAN: 1. Acute respiratory failure, multifactorial, secondary to healthcare-associated pneumonia versus Takotsubo cardiomyopathy. In any case, we are going to continue with the same oxygen supplementation. 2. Bilateral pulmonary infiltrates, likely secondary to pneumonia and pulmonary edema. At this point, we are going to continue with the same management. In this case, the patient is requiring cefepime and Zyvox. We will continue with the same management. 3. Acute on chronic kidney disease. Patient had been on dialysis during her last hospitalization 2-3 weeks ago, but now is making urine, so I do not think the patient needs to be on dialysis, at least right now. Nephrology is following this patient. 4. Diastolic heart failure. Improved. 5. Possible Takotsubo cardiomyopathy with ejection fraction of 40% and also elevated cardiac enzymes. Cardiology is following this patient. 6. Hyponatremia. Aware. At this point, we are going to continue with IV fluids. The patient has been given Samsca 15 mg 1 tablet today. We will see how this patient does. cc: MD Costa Javier MD
--- NOTE | 2016-08-28 21:54 | PROGRESS NOTE ---
DATE: 08/28/2016 SUBJECTIVE: Ms. Serrato is feeling better again today compared to yesterday. Less shortness of breath, no nausea, vomiting, etc. OBJECTIVE: Vital Signs: Blood pressure 117/73, heart rate 88, respirations 14, afebrile. Intake 700 mL. Output 350 mL. General: No acute distress. Skin: Warm and dry. Conjunctivae are pink. Neck: Neck veins are not distended. Trachea is midline. Heart: Regular without gallops. Lungs: Equal with a few crackles. No crackles. Abdomen: Soft, nontender. Bowel sounds present. Extremities: Have no edema, clubbing, or cyanosis. LABORATORY DATA: Sodium 126, potassium 4.2, chloride 90, bicarbonate 22, BUN 29, creatinine 1.7. Hemoglobin 9.3. IMPRESSION: Acute kidney injury. Creatinine continues to very slowly improve. Her BUN is a bit higher today. Fluid balance is acceptable, though her proBNP is markedly elevated. No change in treatment. We will have her tunneled catheter removed at Dr. Watt's convenience. cc: MD Costa Parada MD
[2016-08-29] MEDS: LOPRESSOR PO SCH ×4 (02:03→20:40)
[2016-08-29] MEDS: SOLU-MEDROL IV SCH ×4 (02:03→20:40)
[2016-08-29] MEDS: MORPHINE IV PRN ×6 (02:03→23:04)
[2016-08-29] MEDS: DUONEB (A & A) INH SCH ×6 (03:00→23:23)
[2016-08-29] MEDS: MAXIPIME 1 GM/NS 1 GM/50 ML IVPB IV SCH ×4 (08:34→21:52)
[2016-08-29] MEDS: KLONOPIN PO SCH ×2 (08:37→20:42)
[2016-08-29] MEDS: HEPARIN SUBQ SCH ×2 (08:37→20:40)
[2016-08-29] MEDS: ASPIRIN PO SCH (08:38)
[2016-08-29 10:16] LABS: MANUAL DIFF NEEDED? NO
[2016-08-29 10:26] LABS: BASO% 0.2 % (0.0-0.8); HEMATOCRIT 28.2 % (37.0-47.0); HEMOGLOBIN 9.5 g/dL (12.0-16.0); IMM GRAN# 0.02 X1000 (0.0-0.04); IMM GRAN% 0.4 % (0.0-0.5); LYMPH# 0.27 X1000 (1.2-3.4); LYMPH% 5.1 % (20.5-51.1); MCH 32.1 PG (27-31); MCHC 33.7 g/dL (33-37); MCV 95.3 FL (81-99); MONO# 0.55 X1000 (0.11-0.59); MONO% 10.3 % (1.7-9.3); MPV 9.6 FL (7.4-10.4); PLT 356 X1000 (130-400); RBC 2.96 XMIL (4.2-5.4)
[2016-08-29 10:34] LABS: CALCIUM 8.3 mg/dL (8.8-10.2)
[2016-08-29] MEDS ORDERED: SAMSCA PO ONE (11:44)
--- NOTE | 2016-08-29 12:29 | PROGRESS NOTE ---
DATE: 08/29/2016 SUBJECTIVE: Ms. Serrato is resting quietly in bed. She denies chest pain. No increased work of breathing. She states her nausea has improved. OBJECTIVE: Vital Signs: Her most recent vital signs are temperature 98.7 degrees, blood pressure 131/75, heart rate 87, respirations 16. She is on 3L nasal cannula. Last recorded saturation 97%. She has had 870 in. She has had 350+ out. General: This is a 61-year- old white female. She appears chronically ill. She is in no acute distress. Skin: Warm and dry. HEENT: Normocephalic, atraumatic. Conjunctivae pale. She has STEFFANY. Mucous membranes moist. Neck: Supple. Trachea midline. No JVD. Cardiovascular: Regular rate and rhythm. She is without murmur or gallop. Lungs: Clear to auscultation anteriorly. Equal excursion. She has faint crackle, right posterior base. On O2. Abdomen: Soft, nontender. Positive bowel sounds. Genitourinary: Not inspected. Adequate urine out. Instructed to keep a strict I and O. Extremities: Have no edema. No clubbing or cyanosis. Neurological: Alert and oriented x3. LABORATORY DATA: Sodium 126, potassium 4.2, chloride 90, CO2 of 22, BUN 29, creatinine 1.7, glucose 131. Anion gap 14, calcium 8, phosphorus 4.2, albumin 3.2. White count 7.71, hemoglobin 9.3, hematocrit 27.5, and platelet count 335,000. She had a Legionella level done that was negative, a U-strep pneumoniae level done that was negative, and urinalysis for culture was negative. ASSESSMENT AND PLAN: 1. Acute kidney injury. Patient's creatinine has stabilized at 1.7 today with an improvement in her BUN. Tunneled catheter remains to the right chest wall with a request to Dr. Watt to remove at his convenience, with no indications for further treatment. 2. Electrolytes. Patient has hyponatremia. It is noted that patient was started on Celexa after her admission, which can cause pseudo syndrome of inappropriate antidiuretic hormone secretion. We have stopped her Celexa. We will place her on a fluid restriction of 1.5 L in 24 hours. We would recommend possibly Wellbutrin for anxiety, which does not affect her sodium levels. 3. Acid-base balance. This is stable. 4. Anemia. This remains low, but stable. 5. Pneumonia. This is followed by the primary care team. Patient has renal- dosed antibiotics. I would to thank you for allowing us to follow with this patient. Seen, data reviewed, discussed with Josr Gregory on 08/29/16. I agree with the above assessment and plan of care. rg Dictated by MELITON South for Jonathan Jordan MD cc: MELITON South MD Raphael K. Quansah, MD [facility] INSANEAnabela
[2016-08-29] MEDS: LEVAQUIN 250 MG/D5W 250 MG/50 ML IVPB IV SCH (12:43)
[2016-08-29] MEDS: ZYVOX 600 MG/D5W 600 MG/300 ML IVPB IV SCH ×2 (12:43→23:03)
[2016-08-29] MEDS: SAMSCA PO ONE ×2 (13:01→14:31)
--- NOTE | 2016-08-29 13:17 | PROGRESS NOTE ---
DATE: 08/29/2016 SUBJECTIVE: Ms. Serrato reports she is doing better. She has been transferred out of the ICU to the floor. She has no complaints presently. OBJECTIVE: Vital Signs: Afebrile. Heart rate is 78. Blood pressure 129/64. General: She is in no acute distress. Cardiovascular: She sounds to be in a regular rate and rhythm with no murmurs. No S3. She has no lower extremity edema. Chest: Exam is clear bilaterally. She has no increased work of breathing. Abdomen: Her abdomen is soft, nontender, nondistended. No obvious organomegaly. PERTINENT DATA: Sodium is 135, potassium 4, BUN 35, creatinine is 1.6. ASSESSMENT: 1. Hyponatremia. 2. Heart failure. 3. Possible takotsubo cardiomyopathy. PLAN: I would tentatively plan for cardiac catheterization on Saturday. If no abnormalities are found on that study, she could potentially still go home that day if stable from the primary team's standpoint. We will follow up on labs tomorrow and discuss with nephrology tomorrow if the plan for catheterization persists. cc: MD Costa Broussard MD
--- NOTE | 2016-08-29 16:02 | PROGRESS NOTE ---
DATE: 08/29/2016 SUBJECTIVE: Patient reports feeling much better today. She reports that she was walking with physical therapy in the hallway and she noted less and less shortness of breath. Denies any fever or chills. OBJECTIVE: Vital Signs: Temperature 98.7 degrees, heart rate 78, respiratory rate 24, blood pressure 129/64, O2 saturation 100% 2 L nasal cannula. General: This is a chronically ill- looking 61-year-old female looking older than her age, lying in bed, in no acute distress. HEENT: Head is normocephalic, atraumatic. Anicteric sclerae and pale conjunctivae. Mucous membranes moist. Neck: Supple. No JVD noted. No carotid bruits. No lymphadenopathy. No thyromegaly. Cardiovascular: S1, S2 heard. No murmurs, gallops, or rubs. Regular rate and rhythm. Respiratory: Clear bilaterally to auscultation with mild wheezing in both bases. No crackles noted today. Patient is not using any accessory muscles or having work of breathing. Abdomen: Soft, nontender to palpation. Bowel sounds present. No organomegaly. Extremities: No clubbing, cyanosis, or edema. Peripheral pulses present in both legs. Neurological: Patient is alert and oriented x3. Moves 4 extremities. LABORATORY DATA: Creatinine 1.6. The rest of the laboratory within normal limits. ASSESSMENT AND PLAN: 1. Acute respiratory failure secondary to healthcare-associated pneumonia. At this point, we are going to continue with the same management. In this case, Cefepime and Zyvox. We will switch to oral medication when patient is ready to go home. 2. Possible takotsubo cardiomyopathy. As we mentioned before, the ejection fraction is 40% and the cardiac enzymes were elevated. Cardiology is following. They are planning to do a left heart catheterization on Saturday and if that exam is okay, he can be discharged that day. In that regard, we are going to continue following recommendations from Cardiology. 3. Acute on chronic kidney disease. Now the creatinine I guess is at her new baseline, which is 1.6 most probably. Patient is making good urine. So plan for Nephrology is to remove the tunneled catheter because they are not planning to do any hemodialysis. 4. Hyponatremia, that condition is somewhat resolved and I guess for today we will give her one more dose of Samsca 15. We will continue checking CBC daily. cc: MD Costa Javier MD
[2016-08-30] MEDS: LOPRESSOR PO SCH ×4 (02:49→20:16)
[2016-08-30] MEDS: MORPHINE IV PRN ×5 (03:22→22:25)
[2016-08-30] MEDS: DUONEB (A & A) INH SCH ×6 (03:25→23:36)
[2016-08-30 05:34] LABS: MANUAL DIFF NEEDED? NO
[2016-08-30 05:47] LABS: BASO% 0.2 % (0.0-0.8); HEMATOCRIT 27.9 % (37.0-47.0); HEMOGLOBIN 9.1 g/dL (12.0-16.0); IMM GRAN# 0.02 X1000 (0.0-0.04); IMM GRAN% 0.3 % (0.0-0.5); LYMPH# 0.36 X1000 (1.2-3.4); MCH 31.6 PG (27-31); MCHC 32.6 g/dL (33-37); MCV 96.9 FL (81-99); MONO# 0.76 X1000 (0.11-0.59); MONO% 12.6 % (1.7-9.3); MPV 9.6 FL (7.4-10.4); NEUT% 80.9 % (42.2-75.2); PLT 345 X1000 (130-400); RBC 2.88 XMIL (4.2-5.4)
[2016-08-30 06:04] LABS: ALBUMIN 3.5 g/dL (3.5-5.0); CALCIUM 8.7 mg/dL (8.8-10.2); POTASSIUM 4.6 mmol/L (3.5-5.1)
--- NOTE | 2016-08-30 07:42 | Diag Imaging Result Doc PS360 ---
EXAM: CHEST-2 VIEWS HISTORY: abnormal exam TECHNIQUE: PA and lateral chest COMMENT: There are pleural effusions bilaterally. This is worse than on 08/28/2016. There is a double-lumen catheter in the right internal jugular with its tip just above the right atrium. IMPRESSION: Worsened bilateral pleural effusions. Electronically signed by Skyler Alexander 08/30/2016 7:39 AM
[2016-08-30] MEDS: SOLU-MEDROL IV SCH ×2 (08:20→20:16)
[2016-08-30] MEDS: MAXIPIME 1 GM/NS 1 GM/50 ML IVPB IV SCH ×4 (08:25→22:47)
[2016-08-30] MEDS: KLONOPIN PO SCH ×2 (08:25→20:16)
[2016-08-30] MEDS: HEPARIN SUBQ SCH ×2 (08:25→20:21)
[2016-08-30] MEDS: ASPIRIN PO SCH (08:25)
[2016-08-30] MEDS ORDERED: LASIX IV ONE (13:06)
--- NOTE | 2016-08-30 13:24 | PROGRESS NOTE ---
DATE: 08/30/2016 SUBJECTIVE: Ms. Serrato reports she is doing okay overnight. She had no episodes of chest pain. PHYSICAL EXAMINATION: Vital Signs: Afebrile. Heart rate is 68, blood pressure 139/61. Her I's and O's are not accurate. She has 720 mL documented in with 10 outputs. Generally: No acute distress. Cardiovascular: Regular rate and rhythm. She has no murmurs. No S3. She has no lower extremity edema. Chest: Exam sounds relatively clear. No increased work of breathing. Abdomen: Soft, nontender, nondistended. No obvious organomegaly. PERTINENT DATA: Her chest x-ray demonstrates worsened bilateral pleural effusions. Laboratory data shows a white count is 6, hematocrit 27.9, platelet count 345,000. Sodium 140, potassium 4.6, BUN 38, creatinine 1.6. ASSESSMENT: 1. Possible Takotsubo cardiomyopathy versus a non ST elevation NC. 2. Chronic kidney disease. PLAN: The patient's renal function has stabilized. Her sodium has normalized. I do not have accurate I's and O's but she does appear to have worsened pleural effusions based on her chest x- ray. I will give her a small dose of Lasix 20 mg IV x1. We will tentatively plan on cardiac catheterization in the morning. Risks, benefits, and alternatives have been explained to the patient and she agrees to proceed. cc: MD Costa Broussard MD
[2016-08-30] MEDS: ZYVOX 600 MG/D5W 600 MG/300 ML IVPB IV SCH ×2 (13:25→22:21)
--- NOTE | 2016-08-30 13:35 | PROGRESS NOTE ---
DATE: 08/30/2016 SUBJECTIVE: Ms. Serrato is resting quietly in bed. She denies chest pain. She states that she has no increased work of breathing, but her productive cough has increased. She denies any nausea. OBJECTIVE: Vital Signs: Her most recent vital signs are temperature 98.3 degrees, blood pressure 139/72, heart rate 80, and respirations 18. She is on 2L nasal cannula. Last recorded saturation was 98%. She has had 720 in. She has recorded zero out, though patient states that she has been voiding. General: This is a 61-year-old white female. She is resting quietly in bed. She is in no acute distress. Skin: Warm and dry. HEENT: Normocephalic, atraumatic. Conjunctivae pink. She has STEFFANY. Mucous membranes moist. Neck: Supple. Trachea midline. No JVD. Cardiovascular: She has regular rate and rhythm, without murmur or gallop. Lungs: She is clear to auscultation anterior with expiratory wheezes noted bilateral. She remains on room air. Equal excursion. Abdomen: Soft, nontender. Positive bowel sounds. Genitourinary: Not inspected. Adequate urine out. Previously requested patient assist us with strict intake and output. Extremities: Have no edema. No clubbing or cyanosis. Neurological: Alert and oriented x3. LABORATORIES: Sodium 140, potassium 4.6, chloride 103, CO2 of 25, BUN 38, creatinine 1.6, glucose 123, anion gap 12, calcium 8.7, phosphorus 4.4, albumin 3.5. White count 6.04, hemoglobin 9.1, hematocrit 27.9, with a platelet count of 345,000. ASSESSMENT AND PLAN: 1. Acute kidney injury. Patient's creatinine continues to lower on a daily basis. Creatinine is now down to 1.6. No further indications for intervention. 2. Electrolytes and acid-base balance. These remain stable with correction to her hyponatremia after stopping her Celexa yesterday. 3. Anemia. This remains low, but stable. 4. Pneumonia. This continues to be followed on renal-dosed antibiotics per Primary Care. I would to thank you for allowing us to follow with this patient. Seen, data reviewed, discussed with Josr Gregory on 08/30/16. I agree with the above assessment and plan of care. rg Dictated by MELITON South for Jonathan Jordan MD cc: MELITON South MD Raphael K. Quansah, MD [facility]
[2016-08-30] MEDS ORDERED: TUMS EXTRA STRENGTH PO ONE (15:05)
--- NOTE | 2016-08-30 16:20 | PROGRESS NOTE ---
DATE: 08/30/2016 SUBJECTIVE: She has had recovery of her renal function and overall feels well. She has been treated for pneumonia. Dr. Jordan would like her PICC line removed. OBJECTIVE: Vital signs: She is afebrile. Pulse 68, blood pressure 139/61, oxygen saturation 99% on 2 L. General: She is alert. Neck: Her right internal jugular PermCath site is clean, dry, and intact. There is some bruising but no cellulitis. Cardiovascular: Normal rate. Regular rhythm. Pulmonary: No increased work of breathing but she is on supplemental O2. Integument: Otherwise warm and dry without jaundice. LABS: Reviewed. White count 6, hematocrit 27, platelets are 345. Creatinine is 1.6, potassium 4.6, and her bicarb is 25. ASSESSMENT: This is a 61-year-old female with acute on chronic kidney injury. She has recovered and is out of the window of requiring dialysis and Dr. Jordan has requested her PermCath be removed. Discussed risks, benefits, alternatives, and consents to removal of her PermCath. We will do this today at the bedside. cc: MD Costa Santoyo MD
--- NOTE | 2016-08-30 16:32 | PROGRESS NOTE ---
DATE: 08/30/2016 SUBJECTIVE: Patient reports feeling better, although she reports a bit of cough today. Denies any fever, chills. OBJECTIVE: Vital Signs: Temperature 98.6 degrees, heart rate 71, respiratory rate 20, blood pressure 122/65, O2 saturation 99% on 2 L nasal cannula. General Examination: This is a chronically ill-looking, 61-year-old female, looking older than her age, lying in bed, in no acute distress. HEENT: Head is normocephalic, atraumatic. Anicteric sclerae and pale conjunctivae. Mucous membranes moist. Neck: Supple. No JVD noted. No carotid bruits. No lymphadenopathy. No thyromegaly. Cardiovascular: S1, S2 heard. No murmurs, gallops, or rubs. Regular rate and rhythm. Respiratory: Clear bilaterally to auscultation. Mild wheezing present in both bases, but better in comparing with previous days. No crackles noted today. The patient is not using any accessory muscles or having work of breathing. Abdomen: Soft, nontender to palpation. Bowel sounds present. No organomegaly. Extremities: No clubbing, cyanosis, or edema. Peripheral pulses present in both legs. Neurological: Patient alert and oriented x3. Moves 4 extremities. LABORATORY DATA: Creatinine is 1.6 today. ASSESSMENT AND PLAN: 1. Acute respiratory failure secondary to healthcare-associated pneumonia. We will continue with Zyvox and Cefepime. We will switch to oral medication when patient is ready to go home. 2. Possible takotsubo cardiomyopathy. Cardiology, Dr. Pompa is following this patient. Plans to do a left heart catheterization tomorrow. We will see what that exam shows. 3. Acute on chronic kidney disease. Creatinine around baseline which now I think his new baseline is 1.6. 4. Nephrology has requested Surgery to pull out a Permacath. We will see if that happened today. 5. Hyponatremia. Much better. We will continue checking basic metabolic panel today. cc: MD Costa Javier MD
--- NOTE | 2016-08-30 17:50 | OPERATIVE NOTE ---
PROCEDURE DATE: 08/30/2016 PREOPERATIVE DIAGNOSIS: End-stage renal disease. POSTOPERATIVE DIAGNOSIS: End-stage renal disease. PROCEDURES PERFORMED: Removal of right internal jugular vein PermCath. INDICATIONS: A 58-year-old female with acute on chronic renal failure that required PermCath placement 2 weeks ago. This was uneventful. Her renal function has recovered and Dr. Jordan has requested removal of PermCath. OPERATIVE FINDINGS: There is a well-healed right neck incision and a PermCath exit site without signs of infection. OPERATIVE NOTE: Risks, benefits, alternatives discussed with the patient, she consented to the procedure. Surgical site was confirmed. Her dressing was removed and the nylon sutures were clipped and removed. Given the recent placement, there was no tissue ingrowth into the cuff and we removed this with gentle pressure in its entirety, holding pressure at the venotomy site in the neck and along the tract. We held pressure and placed her in upright position for several minutes. She tolerated this well. We confirmed hemostasis and applied a sterile gauze dressing at the exit site. Tolerated procedure well. Approximately 5 mL of blood loss noted from the exit site at the time of removal, and there are no identified complications. We will continue to monitor her for signs of bleeding or hematoma, but I suspect she will have no issues here. cc: MD Costa Santyoo MD
[2016-08-30] MEDS ORDERED: TUMS EXTRA STRENGTH PO PRN (19:30)
[2016-08-30] MEDS: MUCOMYST 20% PO SCH (22:21)
[2016-08-31] MEDS: MORPHINE IV PRN ×4 (02:28→23:08)
[2016-08-31] MEDS: LOPRESSOR PO SCH ×4 (02:28→20:03)
[2016-08-31] MEDS: DUONEB (A & A) INH SCH ×6 (03:23→23:41)
[2016-08-31 05:23] LABS: MANUAL DIFF NEEDED? NO
[2016-08-31 05:28] LABS: HEMATOCRIT 27.4 % (37.0-47.0); HEMOGLOBIN 9.1 g/dL (12.0-16.0); IMM GRAN# 0.04 X1000 (0.0-0.04); IMM GRAN% 0.4 % (0.0-0.5); LYMPH# 0.77 X1000 (1.2-3.4); LYMPH% 8.4 % (20.5-51.1); MCH 32.3 PG (27-31); MCHC 33.2 g/dL (33-37); MCV 97.2 FL (81-99); MONO# 0.84 X1000 (0.11-0.59); MONO% 9.2 % (1.7-9.3); MPV 9.6 FL (7.4-10.4); PLT 356 X1000 (130-400); RBC 2.82 XMIL (4.2-5.4)
[2016-08-31 05:36] LABS: INR 1.14; PROTIME 12.1 Seconds (9.2-11.7); PTT 24.5 Seconds (22.0-36.0)
[2016-08-31 06:01] LABS: ALBUMIN 3.4 g/dL (3.5-5.0); MAGNESIUM 1.2 mg/dL (1.5-2.7); POTASSIUM 4.6 mmol/L (3.5-5.1); TOTAL BILIRUBIN 0.47 mg/dL (0.20-1.00); TOTAL PROTEIN 5.7 g/dL (6.3-8.3)
[2016-08-31] MEDS ORDERED: LASIX IV ONE (08:46)
[2016-08-31] MEDS: ASPIRIN PO SCH (08:50)
[2016-08-31] MEDS: KLONOPIN PO SCH ×2 (08:50→20:03)
[2016-08-31] MEDS: HEPARIN SUBQ SCH ×2 (09:12→20:02)
[2016-08-31] MEDS: MAXIPIME 1 GM/NS 1 GM/50 ML IVPB IV SCH ×2 (09:47→23:08)
[2016-08-31] MEDS: SOLU-MEDROL IV SCH ×2 (09:47→20:01)
--- NOTE | 2016-08-31 10:31 | EKG Report ---
Test Performed on : 08/31/2016 08:56:09 AM Test Reason : for heart cath Blood Pressure : / mmHG Vent. Rate : 077 BPM Atrial Rate : 077 BPM P-R Int : 154 ms QRS Dur : 082 ms QT Int : 408 ms P-R-T Axes : 051 014 198 degrees QTc Int : 461 ms Normal sinus rhythm. T wave abnormality, consider inferior ischemia T wave abnormality, consider anterolateral ischemia Abnormal ECG When compared with ECG of 25-AUG-2016 09:56, Vent. rate has decreased BY 44 BPM Non-specific change in ST segment in Anterior leads T wave inversion now evident in Anterior leads Confirmed by Ishan SAWANT, Michell Mayorga ([id number]) on 08/31/2016 1:10:40 PM
[2016-08-31] MEDS: MUCOMYST 20% PO SCH ×2 (10:39→20:02)
[2016-08-31] MEDS: ZYVOX 600 MG/D5W 600 MG/300 ML IVPB IV SCH (11:38)
[2016-08-31] MEDS ORDERED: HEPARIN 1000 UNITS/NS 2,000 UNIT/1,000 ML IV.SOLN ONE (13:38)
[2016-08-31] MEDS ORDERED: DILAUDID ONE (14:06)
[2016-08-31] MEDS ORDERED: VERSED ONE (14:06)
[2016-08-31] MEDS ORDERED: CLAVE TWINSITE 32 IN 11959 ONE (14:13)
[2016-08-31] MEDS ORDERED: NS 1,000 ML ONE (14:13)
[2016-08-31] MEDS ORDERED: CLAVE PUMP SET NO FILTER 12260 ONE (14:13)
[2016-08-31] MEDS ORDERED: NITROGLYCERIN ONE (14:13)
--- NOTE | 2016-08-31 15:09 | PROGRESS NOTE ---
DATE: 08/31/2016 SUBJECTIVE: Patient reports seems to be more cough today. This is kind of dry cough, but no fever or chills. OBJECTIVE: Vital Signs: Temperature 98.4 degrees, heart rate 77, respiratory rate 20, blood pressure 135/71. O2 saturation 100% on 1 L nasal cannula. General Examination: This is a chronically ill-looking, frail, 61-year-old female lying in bed, in no acute distress. HEENT: Head is normocephalic, atraumatic. Anicteric sclerae and pale conjunctivae. Mucous membranes moist. Neck: Supple. No JVD noted. No carotid bruits. No lymphadenopathy. No thyromegaly. Cardiovascular: S1, S2 heard. No murmurs, gallops, or rubs. Regular rate and rhythm. Respiratory: Clear bilaterally to auscultation. There is still some wheezing and crackles, but definitely better in comparing with yesterday. No murmurs, gallops, or rubs. Abdomen: Soft nontender to palpation. Bowel sounds present. No organomegaly. Extremities: No clubbing, cyanosis, or edema. Peripheral pulses present in both legs. Neurological: Patient is alert and oriented x3. Moves 4 extremities. LABORATORY DATA: Reviewed. ASSESSMENT AND PLAN: 1. Acute respiratory failure secondary to healthcare-associated pneumonia. We will continue with Zyvox and cefepime. We can switch to oral medication when patient is ready to be discharged. 2. Possible takotsubo cardiomyopathy. Today Dr. Pompa is going to perform a left heart catheterization. We will follow his recommendations. 3. Acute on chronic kidney disease. Creatinine is definitely around baseline at 1.6. The tunneled catheter has been removed yesterday. 4. Hyponatremia. Much better. cc: Scott Lutz MD
--- NOTE | 2016-08-31 15:26 | CARDIAC CATH REPORT ---
PROCEDURE NAME: - INDICATION: [id number] myocardial infarction. Possibility for takotsubo cardiomyopathy. PROCEDURES PERFORMED: 1. Left heart catheterization. 2. Selective coronary angiography. PROCEDURE IN DETAIL: Ms. Serrato was brought to the catheterization laboratory in fasting state. Informed consent was obtained. Prepped in usual fashion. Anesthetized over the right radial artery after Christian's test was proved adequate. A 5-Czech sheath was placed via true Seldinger technique. Radial catheters were introduced and hemodynamic measurements made in the ascending thoracic aorta. Coronary angiography was performed in multiple views using JL3.5 and JR4 diagnostic catheters. At conclusion of procedure, all sheaths and catheters removed. TR band was left inflated at 10 mL of air. 50 mL of IV contrast in the form of Visipaque was used. 5 mL of blood loss. No apparent complications. FINDINGS: 1. Left main originates from left coronary cusp. Coming off of that were the left anterior descending and circumflex vessels which appeared to be normal. 2. Right coronary artery originated from the right coronary cusp. It had a somewhat anterior takeoff. It was normal throughout its course. 3. Aortic blood pressure is 155/66 with a mean of 106. Left ventricular pressure is 156/10 with an LVEDP of 26. ASSESSMENT: Ms. Serrato is a 61-year-old white female who had what I presume to be a non-ST- elevation myocardial infarction concerning for possible takotsubo. PLAN: She has no flow-limiting lesions. This would confirm takotsubo cardiomyopathy as the echocardiogram had suggested. I would recommend continued diuresis of the patient. She will return to the floor for usual postprocedure convalescence. cc: Obey Pompa MD MTDD
[2016-08-31] MEDS: LEVAQUIN 250 MG/D5W 250 MG/50 ML IVPB IV SCH (16:11)
[2016-09-01] MEDS: LOPRESSOR PO SCH ×2 (02:07→09:13)
[2016-09-01] MEDS: DUONEB (A & A) INH SCH ×3 (03:12→11:30)
[2016-09-01] MEDS: MORPHINE IV PRN ×3 (03:16→11:16)
[2016-09-01 06:07] LABS: MANUAL DIFF NEEDED? NO
[2016-09-01 06:15] LABS: HEMATOCRIT 26.6 % (37.0-47.0); IMM GRAN# 0.02 X1000 (0.0-0.04); IMM GRAN% 0.3 % (0.0-0.5); LYMPH# 0.86 X1000 (1.2-3.4); LYMPH% 11.2 % (20.5-51.1); MCH 32.1 PG (27-31); MCHC 33.8 g/dL (33-37); MONO# 0.59 X1000 (0.11-0.59); MONO% 7.7 % (1.7-9.3); MPV 9.4 FL (7.4-10.4); NEUT% 80.8 % (42.2-75.2); PLT 320 X1000 (130-400)
[2016-09-01 06:38] LABS: ALBUMIN 3.3 g/dL (3.5-5.0); CALCIUM 8.6 mg/dL (8.8-10.2); POTASSIUM 4.5 mmol/L (3.5-5.1)
[2016-09-01] MEDS: HEPARIN SUBQ SCH (09:12)
[2016-09-01] MEDS: ASPIRIN PO SCH (09:12)
[2016-09-01] MEDS: KLONOPIN PO SCH (09:12)
[2016-09-01] MEDS: MAXIPIME 1 GM/NS 1 GM/50 ML IVPB IV SCH (09:13)
[2016-09-01] MEDS: SOLU-MEDROL IV SCH (09:13)
[2016-09-01] MEDS: ZYVOX 600 MG/D5W 600 MG/300 ML IVPB IV SCH ×2 (10:00)
--- NOTE | 2016-09-01 10:21 | DISCHARGE SUMMARY ---
ADMISSION DATE: 08/25/2016 DISCHARGE DATE: 09/01/2016 ADMISSION DIAGNOSES: 1. Acute respiratory failure secondary to pneumonia. 2. Healthcare-associated pneumonia. 3. Sepsis secondary to pneumonia. 4. Acute kidney injury. 5. Transaminitis. DISCHARGE DIAGNOSES: 1. Takotsubo cardiomyopathy. 2. Chronic obstructive pulmonary disease. 3. Acute kidney injury on chronic kidney disease. 4. Systolic congestive heart failure. 5. Acute respiratory failure secondary to healthcare-associated pneumonia. 6. Hyponatremia. CONSULTATIONS: 1. Dr. Jordan from Nephrology was consulted regarding her previous chronic kidney disease on dialysis. 2. Dr. Fraser from Pulmonology evaluated the patient as well for her dyspnea. 3. Dr. Pompa from Cardiology evaluated the patient regarding her abnormal echo and additional symptoms. PROCEDURES: 1. The patient initially had a chest x-ray on the date of admission reporting the development of infiltrates in the mid and right lower lung. 2. She did have subsequent x-rays as well that showed effusions. 3. The patient had a chest CT on admission which again showed the multifocal bilateral infiltrates and small pleural effusions. 4. She underwent an echo during her admission which showed [id number] decrease in systolic function with an EF of 45%. 5. She also underwent a cardiac cath on 08/31/2016 which was not significant for coronary artery disease. HOSPITAL SUMMARY: In brief, Ms. Serrato is a 61-year-old female who was a readmission to the hospital after being discharged just the day prior. With the prior admission she was in the hospital for acute kidney injury requiring hemodialysis, transaminitis, and a Klebsiella pneumoniae UTI. She was feeling appropriate for discharge at the time and the morning of her admission on the she presented back to the E.R. at [facility] for evaluation with moderate shortness of breath. At that time she was placed on BiPAP to assist with her ventilation and she was found to have a pneumonia in the right lung. She was placed on cefepime and Zyvox and has continued to improve. She also had consults with Cardiology, Pulmonology, and Nephrology as previously stated regarding her other conditions. She was also found to have a BNP of 16,000 during her admission coinciding with the decreased systolic function with her echo and was diuresed during admission and her symptoms have continued to improve and we feel that she is appropriate for discharge at this time. It was discussed with the patient regarding fluid and sodium restriction and continuing with diuresis on an outpatient basis and to follow up with Dr. Pompa as an outpatient as well as her primary care physician, Dr. Ling. She is maintaining an oxygen saturation of 98%-99% on room air and again feels much improved. Will also follow up with a BMP in one week. DISCHARGE MEDICATIONS: 1. Spiriva one puff daily. 2. Protonix 40 mg p.o. daily. 3. Icar-C one p.o. b.i.d. 4. Advair 250 mcg/50 mcg one puff b.i.d. 5. Celexa 20 mg p.o. daily. 6. Vitamin D3 1,000 units p.o. daily. 7. Toprol XL 50 mg p.o. daily. 8. Medrol Dosepak as directed. 9. Lasix 40 mg p.o. daily. 10.Klonopin 0.5 mg p.o. b.i.d. 11.Aspirin 81 mg p.o. daily. FOLLOW UP: The patient is to follow up with her primary care doctor, Dr. Manolo Ling. She is also to follow up with Dr. Pompa as an outpatient as needed as well. DISCHARGE TIME: Greater than 30 minutes. Further orders pending physician evaluation. Dictated by MELITON Resendiz for Scott Lutz MD cc: MELITON Resendiz MD
[2016-09-01 10:41] VITALS: BP 151/68
--- NOTE | 2016-09-01 12:20 | PROGRESS NOTE ---
DATE: 09/01/2016 SUBJECTIVE: Ms. Serrato reports she feels better today. She is currently receiving a breathing treatment. OBJECTIVE: Vital Signs: Her most recent I's and O's are -2.4 L over the course of the last 24 hours. Overall, she is -1.3 L per documentation. Her blood pressure is 151/68. She is afebrile. Heart rate is 64. General: In no acute distress. Cardiovascular: She sounds to be in a regular rate and rhythm. No murmurs. She has no S3. No lower extremity edema. Chest: Coarse bilaterally. Some mild expiratory wheezes. No increased work of breathing. Abdomen: Soft, nontender. PERTINENT DATA: Her BUN and creatinine are down to 27 and 1.2. ASSESSMENT: 1. Takotsubo cardiomyopathy. 2. Renal insufficiency. PLAN: Renal function is improving. She is set up for discharge with beta-blockers on board as well as diuretics. She has been instructed to contact our office for an appointment in 6 weeks, and she has a followup BMP as an outpatient. She seems to be doing better and hopefully we can continue with a reasonable level of diuresis as an outpatient. cc: Obey Pompa MD
== END 2016-09-01 13:33 | disposition home or self-care (01) ==
LOC: SUATTDRO 07:58 → DIRADM 07:58 → ICU 09:12 → 4N 08-28 15:34 → 3S 08-31 14:45
PROVIDERS: ATTEND Internal Medicine

== ENCOUNTER 2018-05-24 12:03 | Inpatient (IN) ==
[2018-05-24] MEDS ORDERED: ZOFRAN IV PRN (14:22)
[2018-05-24] MEDS ORDERED: SODIUM CHLORIDE 0.9% INJ SCH (14:30)
[2018-05-24] MEDS ORDERED: VANCOMYCIN IV PER PHARMACY MISC SCH (14:30)
[2018-05-24] MEDS ORDERED: SOLU-MEDROL IV SCH ×2 (14:45→15:00)
[2018-05-24] MEDS: DILAUDID IV PRN ×2 (14:48→17:48)
[2018-05-24] MEDS: NS 1,000 ML IV SCH (14:51)
[2018-05-24] MEDS ORDERED: DECADRON IV SCH (15:00)
[2018-05-24] MEDS ORDERED: XYLOCAINE-MPF 4% INJ STA (15:15)
[2018-05-24] MEDS ORDERED: AFRIN NASAL SPRAY NAS STA (15:16)
[2018-05-24] MEDS: MAXIPIME 1 GM in NS 50 ML IV SCH (15:23)
[2018-05-24 15:32] LABS: BASO# 0.02 X1000 (0.0-0.2); BASO% 0.1 % (0.0-0.8); HEMATOCRIT 41.4 % (37.0-47.0); HEMOGLOBIN 14.2 g/dL (12.0-16.0); IMM GRAN# 0.39 X1000 (0.0-0.04); INR 0.93; LYMPH# 0.58 X1000 (1.2-3.4); LYMPH% 2.9 % (20.5-51.1); MCH 30.3 PG (27-31); MCHC 34.3 g/dL (33-37); MCV 88.5 FL (81-99); MONO# 0.71 X1000 (0.11-0.59); MONO% 3.6 % (1.7-9.3); MPV 9.5 FL (7.4-10.4); NEUT% 91.4 % (42.2-75.2); PLT 333 X1000 (130-400); PROTIME 13.2 Seconds (11.0-16.0); RBC 4.68 XMIL (4.2-5.4); RDW 14.6 % (11.5-14.5)
[2018-05-24 15:50] LABS: LYMPHS 4 % (21-51); MONO 4 % (1-9); SEGS 90 % (42-75)
[2018-05-24 15:51] LABS: STOMATOCYTES 2+
--- NOTE | 2018-05-24 15:54 | Diag Imaging Result Doc PS360 ---
EXAM: CHEST-PORTABLE 05/24/2018 HISTORY: dyspnea TECHNIQUE: AP portable upright at 1518 COMMENT: There is no evidence of acute cardiac or pulmonary disease. There is a granuloma in the right upper lobe. Compared to 08/30/2016 there has been no significant change. IMPRESSION: No acute disease. Electronically signed by Skyler Alexander 05/24/2018 3:51 PM
--- NOTE | 2018-05-24 15:55 | Diag Imaging Result Doc PS360 ---
EXAM: NECK AP AND/OR LAT SOFT TISSUE 05/24/2018 HISTORY: epiglottitis TECHNIQUE: AP and lateral soft tissue neck COMMENT: There is severe degenerative disc disease from the C3 level caudally. There is narrowing of the subglottic trachea. The epiglottis appears to be thickened. IMPRESSION: Epiglottitis. Severe degenerative disc disease. Electronically signed by Skyler Alexander 05/24/2018 3:52 PM
[2018-05-24] MEDS: CLINDAMYCIN 600 MG/D5W 600 MG/50 ML IVPB IV SCH ×2 (15:56→22:46)
[2018-05-24 16:00] LABS: ALB/GLOB RATIO 1.1; ALBUMIN 4.5 g/dL (3.5-5.0); CALCIUM 9.2 mg/dL (8.8-10.2); TOTAL BILIRUBIN 0.23 mg/dL (0.20-1.00); TOTAL PROTEIN 8.7 g/dL (6.3-8.3)
[2018-05-24] MEDS ORDERED: DECADRON IV ONE (16:55)
[2018-05-24] MEDS ORDERED: VANCOMYCIN 1,400 MG in NS 250 ML IV ONE (17:00)
[2018-05-24] MEDS: ATIVAN IV PRN ×2 (17:48→22:46)
[2018-05-24] MEDS: DECADRON IV SCH (20:37)
--- NOTE | 2018-05-24 21:29 | HISTORY AND PHYSICAL ---
CHIEF COMPLAINT: "I have a sore throat and I can't swallow my own saliva." HISTORY OF PRESENT ILLNESS: Ms. Serrato is a 63-year-old female with a history of COPD, chronic systolic CHF and history of stress-induced cardiomyopathy, who initially presented to [facility] with a chief complaint of severe sore throat and odynophagia. While there, the patient had a soft tissue x-ray of the neck that revealed epiglottitis. The patient was treated with Rocephin, IV steroid therapy and subsequently transferred to [facility] for an ENT evaluation. The patient states that 3 days ago, she started to experience a sore throat and gradually got to the point where she could not even swallow her own secretions. She also complains of odynophagia. The patient denied having any fever, chills, or recent sick contacts. The patient states that she smokes about 3 packs of cigarettes a week. The patient also reports that she has been having rhinorrhea, but no orthopnea or chest pain. PAST MEDICAL HISTORY: 1. Depression. 2. COPD. 3. Tobacco dependence. 4. History of stress-induced cardiomyopathy. 5. Chronic systolic congestive heart failure. PAST SURGICAL HISTORY: 1. Hysterectomy. 2. Hemodialysis catheter placement. SOCIAL HISTORY: The patient is a smoker. She smokes about 3 packs of cigarettes per week. She denies any alcohol usage. FAMILY HISTORY: Positive for lung cancer, colon cancer, gastric cancer, chronic kidney disease, and hypothyroidism. REVIEW OF SYSTEMS: A 12-point review of systems has been performed. Please refer to the history of present illness for pertinent positives and negatives. ALLERGIES: No known drug allergies. HOME MEDICATIONS: 1. Celexa 20 mg p.o. daily. 2. Toprol-XL 50 mg p.o. daily. PHYSICAL EXAMINATION: VITAL SIGNS: Temperature 98.6, blood pressure 140/77, heart rate 74, respirations 15, O2 saturation 92% on 2 L nasal cannula. GENERAL: This is a chronically ill-appearing elderly female sitting up in bed in mild distress. HEENT: Head: Normocephalic, atraumatic. Eyes: Conjunctiva clear, EOMI, PERRLA. NECK: Supple. No JVD. No lymphadenopathy. HEART: S1, S2 normal. Regular rate and rhythm. LUNGS: Equal air entry bilaterally. No wheezing. No rales. No rhonchi. ABDOMEN: Positive bowel sounds. Soft, nontender, nondistended. EXTREMITIES: No edema, no cyanosis. NEUROLOGIC: The patient is alert and oriented x3. No focal neurologic deficits noted. Cranial nerves 2 through 12 intact. LABS: White blood cell count 19, hemoglobin 14, hematocrit 41, platelets 333. Sodium 135, potassium 4, chloride 96, CO2 of 24, BUN 13, creatinine 1, glucose 168. Soft tissue neck x-ray: Epiglottitis. There is narrowing of the subglottic trachea. The epiglottis appears to be thickened. ASSESSMENT AND PLAN: 1. Epiglottitis. The patient will be transferred to the ICU. ENT is aware and will be seeing the patient today.Blood cultures have been obtained. We will start the patient on antibiotics, IV steroids and supplemental oxygen. 2. Tobacco dependence. Aware. 3. Chronic obstructive pulmonary disease. Stable. Continue with supplemental oxygen. 4. Gastrointestinal prophylaxis. Will start the patient on IV Protonix. 5. Deep venous thrombosis prophylaxis. Will start the patient on sequential compression devices. cc: Madison Hawthorne MD MTDD
[2018-05-25] MEDS: NS 1,000 ML IV SCH ×4 (02:15→21:15)
[2018-05-25] MEDS: DECADRON IV SCH ×4 (02:15→20:06)
[2018-05-25] MEDS: MAXIPIME 1 GM in NS 50 ML IV SCH ×2 (02:15→14:10)
[2018-05-25] MEDS: DILAUDID IV PRN ×2 (03:02→08:04)
[2018-05-25] MEDS: ATIVAN IV PRN ×2 (03:02→08:04)
[2018-05-25] MEDS: PROTONIX IV SCH (06:29)
[2018-05-25] MEDS: CLINDAMYCIN 600 MG/D5W 600 MG/50 ML IVPB IV SCH ×3 (06:29→23:10)
[2018-05-25 09:04] LABS: AGAP 13; BUN 15 mg/dL (8-22); CALCIUM 9.6 mg/dL (8.8-10.2); CHLORIDE 102 mmol/L (98-107); COSMO 279; CREATININE 0.7 mg/dL (0.5-0.9); ESTIMATED GFR > 60; GLUCOSE 138 mg/dL (70-104); POTASSIUM 4.1 mmol/L (3.5-5.1); SODIUM 138 mmol/L (136-145); TCO2 23 mmol/L (25-35)
[2018-05-25] MEDS ORDERED: AFRIN NASAL SPRAY NAS ONE (10:19)
[2018-05-25] MEDS ORDERED: XYLOCAINE-MPF 4% INJ ONE (10:20)
[2018-05-25 10:39] LABS: EOS# 0.01 X1000 (0.0-0.7); EOS% 0.1 % (0.0-10.0); HEMOGLOBIN 12.1 g/dL (12.0-16.0); IMM GRAN# 0.06 X1000 (0.0-0.04); IMM GRAN% 0.4 % (0.0-0.5); LYMPH# 0.76 X1000 (1.2-3.4); LYMPH% 4.9 % (20.5-51.1); MCH 30.3 PG (27-31); MCHC 33.6 g/dL (33-37); MONO% 8.3 % (1.7-9.3); MPV 9.5 FL (7.4-10.4); NEUT# 13.44 X1000 (1.4-6.5); NEUT% 86.3 % (42.2-75.2); PLT 240 X1000 (130-400); RDW 14.7 % (11.5-14.5); WBC 15.57 X1000 (4.8-10.8)
[2018-05-25] MEDS ORDERED: NARCAN IV ONE (10:51)
[2018-05-25 10:53] LABS: BANDS 6 % (0-1); LYMPHS 4 % (21-51); MONO 2 % (1-9); SEGS 88 % (42-75)
[2018-05-25] MEDS ORDERED: NARCAN ONE (10:56)
[2018-05-25] MEDS: LOPRESSOR IV SCH ×3 (10:56→21:14)
[2018-05-25] MEDS: OFIRMEV 1000 MG/ISOTONIC SOLN 1,000 MG/100 ML BOTTLE IV PRN ×2 (14:13→21:14)
--- NOTE | 2018-05-25 19:23 | PROGRESS NOTE ---
DATE: 05/25/2018 SUBJECTIVE: The patient is sleepy and lethargic right now. She just received morphine and Ativan, so she is unable to answer any questions. OBJECTIVE: Vital Signs: Temperature 98.5 degrees, blood pressure 108/63, heart rate 72, respirations 20, O2 saturation 98% on a Ventimask, intake 1.9 L. General: This is an elderly female lying in bed, in no acute distress. Heart: S1, S2 normal. Regular rate and rhythm. Lungs: Coarse breath sounds bilaterally. There is stridor present. Abdomen: Positive bowel sounds. Soft, nontender, nondistended. Extremities: No edema, no cyanosis, no calf tenderness. Neurologic: The patient is lethargic, but does respond to painful stimuli. LABS: White blood cell count 15, hemoglobin 12, hematocrit 36, platelets 240,000. Sodium 138, potassium 4.1, chloride 102, CO2 23, BUN 15, creatinine 0.7, glucose 138. ASSESSMENT AND PLAN: 1. Epiglottitis. Management as per ENT. We will continue with antibiotic therapy and steroids. 2. Bacteremia. The blood cultures are growing gram-positive cocci. Continue with antibiotic coverage pending the results of the cultures. 3. Chronic obstructive pulmonary disease. Continue with supplemental oxygen. 4. Gastrointestinal prophylaxis. Continue on intravenous Protonix. 5. Deep vein thrombosis prophylaxis. Will start the patient on Lovenox. cc: Madison Hawthorne MD [facility]
[2018-05-25] MEDS: VANCOMYCIN 1,100 MG in NS 250 ML IV SCH (23:10)
[2018-05-26] MEDS: MAXIPIME 1 GM in NS 50 ML IV SCH ×2 (03:45→14:26)
[2018-05-26] MEDS: LOPRESSOR IV SCH ×4 (03:53→21:38)
[2018-05-26] MEDS: DECADRON IV SCH ×3 (03:54→14:26)
[2018-05-26] MEDS: OFIRMEV 1000 MG/ISOTONIC SOLN 1,000 MG/100 ML BOTTLE IV PRN (06:03)
[2018-05-26] MEDS: PROTONIX IV SCH (06:04)
[2018-05-26] MEDS: NS 1,000 ML IV SCH ×3 (06:04→20:39)
[2018-05-26 06:48] LABS: HEMATOCRIT 36.8 % (37.0-47.0); HEMOGLOBIN 12.4 g/dL (12.0-16.0); LYMPH# 0.57 X1000 (1.2-3.4); LYMPH% 4.3 % (20.5-51.1); MCH 30.5 PG (27-31); MCHC 33.7 g/dL (33-37); MCV 90.6 FL (81-99); MONO# 0.69 X1000 (0.11-0.59); MONO% 5.2 % (1.7-9.3); MPV 10.5 FL (7.4-10.4); PLT 194 X1000 (130-400); RBC 4.06 XMIL (4.2-5.4); RDW 14.8 % (11.5-14.5); WBC 13.17 X1000 (4.8-10.8)
--- NOTE | 2018-05-26 07:14 | EKG Report ---
Test Performed on : 05/25/2018 09:12:23 AM Test Reason : tachycardia Blood Pressure : / mmHG Vent. Rate : 123 BPM Atrial Rate : 123 BPM P-R Int : 172 ms QRS Dur : 084 ms QT Int : 306 ms P-R-T Axes : 045 012 049 degrees QTc Int : 438 ms Sinus tachycardia. Nonspecific T wave abnormality Abnormal ECG When compared with ECG of 31-AUG-2016 08:56, Vent. rate has increased BY 46 BPM T wave inversion no longer evident in Anterior leads Confirmed by Arben SAWANT, Jignesh ([id number]) on 05/26/2018 8:56:53 AM
[2018-05-26] MEDS: CLINDAMYCIN 600 MG/D5W 600 MG/50 ML IVPB IV SCH ×2 (07:17→14:27)
[2018-05-26 07:34] LABS: ALB/GLOB RATIO 0.9; ALBUMIN 3.4 g/dL (3.5-5.0); CREATININE 1.1 mg/dL (0.5-0.9); POTASSIUM 4.3 mmol/L (3.5-5.1); TOTAL BILIRUBIN 0.18 mg/dL (0.20-1.00); TOTAL PROTEIN 7.1 g/dL (6.3-8.3)
[2018-05-26 07:37] LABS: BANDS 8 % (0-1); LYMPHS 8 % (21-51); MONO 2 % (1-9); SEGS 80 % (42-75)
[2018-05-26] MEDS: ATIVAN IV PRN (08:35)
[2018-05-26] MEDS: LOVENOX SUBQ SCH (08:36)
[2018-05-26] MEDS ORDERED: FIORICET PO ONE (08:58)
--- NOTE | 2018-05-26 11:24 | PROGRESS NOTE ---
DATE: 05/26/2018 SUBJECTIVE: The patient has no complaints. She seems awake, alert. OBJECTIVE: Vital Signs: Blood pressure is 161/84, heart rate 69, respiratory rate 19, temperature 97.5. Cardiovascular: Regular rate and rhythm. Pulmonary: Bilateral breath sounds. Clear to auscultation. Gastrointestinal: Soft, nontender, nondistended. Bowel sounds are positive. LABORATORY DATA: White count 13, hemoglobin and hematocrit 12 and 36, platelets 194,000. Creatinine is 1.1. Blood cultures x2 from the 13th are positive. PROBLEM LIST: 1. Epiglottitis. She is being managed by ENT. She is on high dose steroids. She is still NPO. I am not sure if we can advance her diet. She seems like she is doing okay, but I am not sure if they are planning for instrumentation today. I do not see an ENT note yet so I am not sure what the plan is. 2. Bacteremia, gram-positive cocci. She is on IV antibiotics, in particular vancomycin. Hopefully, we will get a causative organism soon, repeat blood cultures in the next 24 hours. Consider Infectious Disease consult but pending her cultures. 3. Chronic obstructive pulmonary disease. She is stable on oxygen. DISPOSITION: Pending her clinical status. I think she may be okay to go to step-down, but I am still waiting on ENT to evaluate her. cc: Arvin Barrera MD
[2018-05-26] MEDS: FIORICET PO PRN ×2 (15:27→23:07)
[2018-05-26] MEDS ORDERED: DECADRON IV SCH (17:00)
--- NOTE | 2018-05-26 17:54 | PROGRESS NOTE ---
DATE: 05/26/2018 SUBJECTIVE: The patient was admitted 2 days ago with diagnosis of acute epiglottitis. She relates 3-week history of increasingly severe odynophagia, is a smoker. She has been on IV vancomycin along with IV Decadron and she has had marked improvement. Able to tolerate p.o. Pain and tenderness improved and no complaint of airway distress. FLEXIBLE FIBEROPTIC EXAMINATION: Reveals only minimal edema, epiglottis, and mild erythema. This extends to the right supraglottis but airway is excellent. True vocal cord is clean, mobile. There is exudate versus lesion noted right epiglottis, right supraglottis which may represent change from recent epiglottitis. Neck tender. Mid jugular chain adenopathy, right. ASSESSMENT: Improving epiglottitis, change noted on right epiglottis and right supraglottis, which could represent residual change from recent acute infection versus lesion. PLAN: I have discussed with Ms. Serrato we will definitely repeat laryngoscopy in the next week once all erythema and edema resolved. I feel it is okay to transfer Ms. Serrato out of ICU. Diet as tolerated would be satisfactory. We will taper Decadron. We will follow with you. cc: Zia Brunner MD
--- NOTE | 2018-05-26 20:49 | INFECTIOUS DISEASE CONSULT REP ---
DATE: 05/26/2018 CONCLUSION: Dr. Barrera asked me to see patient regarding methicillin-resistant Staphylococcus aureus bacteremia. I think most likely it arose from the patient's epiglottitis; however, it is interesting to point out that approximately 2 weeks ago the patient fell and hit the left side of her head. It became erythematous and swollen. It probably is not the cause of the patient's bacteremia because it occurred at least 2 weeks ago and the patient would have been sicker much earlier than she is now. RECOMMENDATIONS: I agree with treating the patient with vancomycin and cefepime for her epiglottitis and methicillin-resistant Staphylococcus aureus bacteremia. I am going to order an echocardiogram on the patient. DISCUSSION: The patient initially was admitted to the hospital. She could not swallow and was having trouble breathing. She was found on x-ray to have epiglottitis. She has been put on cefepime, vancomycin, and steroids and appears to be doing much better. Studies done thus far show blood cultures are growing methicillin-resistant Staph aureus. The rapid strep test of the throat was negative. Patient's CBC shows a white count of 13,170, hemoglobin 12.4, and platelet count 194,000. Creatinine is 1.1. GFR is 50. Liver function studies are normal. The patient had an x-ray of the neck and it showed evidence of epiglottitis. The patient also noticed that she had submandibular swelling in her face. Patient had a chest x-ray, and it showed no acute disease. PAST MEDICAL HISTORY/REVIEW OF SYSTEMS: Eyes and ears: She does not have any trouble hearing or seeing. Neck: See present illness. Respiratory: See present illness. Gastrointestinal: Patient has not had a stool in a while, but she says she thinks that is only because she has had a liquid diet. Genitourinary: No dysuria or flank pain. Bones, joints, muscles: No joint swelling or muscle aching. Endocrine: The patient does not have diabetes or thyroid disease. Neurologic: No seizures. No loss of motor or sensory function. OBSTETRICAL/GYNECOLOGICAL HISTORY: She is a 2, para 2, AB 0. She has had a hysterectomy and bilateral salpingo-oophorectomy. PREVIOUS HOSPITALIZATIONS AND OPERATIONS: She has had a hysterectomy and bilateral salpingo- oophorectomy. She has been admitted before for renal failure, and she was doing dialysis. She has been admitted also because of pneumonia. MEDICAL DISEASES: Positive for hypertension and renal failure. INFECTIOUS DISEASE HISTORY: Positive for pneumonia and UTI. FAMILY HISTORY: Positive for diabetes mellitus, cancer and dementia. SOCIAL HISTORY: [place] She is . She does not have a job. She previously was a hairdresser. She has a dog as a pet. She smokes cigarettes and drinks alcohol beverages but does not abuse drugs. She lives alone with her dog. MEDICATIONS AT HOME: Celexa and Toprol. ALLERGIES: The patient does not have any known drug allergies. PHYSICAL EXAMINATION: Vital Signs: Temperature is 98.2 degrees pulse 64, respirations 18, blood pressure 163/69. The patient weighs 125 pounds. General: This is a somewhat ill-appearing elderly female. Currently, she is in no acute distress. Head/eyes/ears/nose/throat: She does talk with a hoarse voice. She can hear my spoken words and see near objects. I did not see any white patches or excessive erythema in her throat or on her tongue. Neck: I did not feel any adenopathy, and her neck was supple and moving her neck did not cause her to have pain. Lungs: Clear to auscultation. Cardiovascular: Regular heart rate. Abdomen: Soft and nontender. Neurologic: Patient is alert. She can move her extremities. There is no tremor. Her sensation is intact to touch. Her memory as regarding her medical history was good. Integument: No rash noted. Thank you for the consult. cc: Pablito Shook MD
[2018-05-26] MEDS: MUCOMYST 20% PO SCH (21:39)
[2018-05-26] MEDS ORDERED: ATIVAN IV PRN (23:00)
[2018-05-27] MEDS: DECADRON IV SCH ×3 (01:25→14:59)
[2018-05-27] MEDS: APRESOLINE IV PRN (01:28)
[2018-05-27] MEDS: MAXIPIME 1 GM in NS 50 ML IV SCH (02:53)
[2018-05-27 04:53] LABS: HEMOGLOBIN 12.1 g/dL (12.0-16.0); IMM GRAN# 0.04 X1000 (0.0-0.04); IMM GRAN% 0.5 % (0.0-0.5); MCH 30.9 PG (27-31); MCHC 35.6 g/dL (33-37); MONO# 0.64 X1000 (0.11-0.59); MONO% 7.3 % (1.7-9.3); MPV 9.5 FL (7.4-10.4); NEUT# 7.41 X1000 (1.4-6.5); NEUT% 84.2 % (42.2-75.2); PLT 262 X1000 (130-400); RBC 3.91 XMIL (4.2-5.4); RDW 14.2 % (11.5-14.5); WBC 8.79 X1000 (4.8-10.8)
[2018-05-27] MEDS: LOPRESSOR IV SCH (04:59)
[2018-05-27 05:14] LABS: AGAP 10; BUN 23 mg/dL (8-22); CALCIUM 8.7 mg/dL (8.8-10.2); CHLORIDE 106 mmol/L (98-107); COSMO 274; CREATININE 0.9 mg/dL (0.5-0.9); ESTIMATED GFR > 60; GLUCOSE 107 mg/dL (70-104); POTASSIUM 3.8 mmol/L (3.5-5.1); SODIUM 135 mmol/L (136-145); TCO2 19 mmol/L (25-35)
[2018-05-27] MEDS: VANCOMYCIN 1,100 MG in NS 250 ML IV SCH (05:28)
[2018-05-27] MEDS: NS 1,000 ML IV SCH (05:29)
--- NOTE | 2018-05-27 07:19 | Diag Imaging Result Doc PS360 ---
EXAM: CT NECK W/CONTRAST 05/26/2018 HISTORY: epiglottitis TECHNIQUE: This exam was performed using automated exposure control, adjustment of mA or kV according to patient size, and/or use of iterative reconstruction technique. COMMENT: The nasopharynx is unremarkable in appearance. The parotid glands are symmetrical in appearance. The tonsils are normal in appearance. There is an abnormal fluid collection with gas bubbles present posterior and lateral to the hypopharynx on the right abutting the right submandibular gland and lateral to the superior horn of the hyoid bone. This extends slightly into the prevertebral space on the right. There is thickening of the epiglottis and right area epiglottic fold. There are prominent spinal accessory nodes and there is an enlarged jugulodigastric node on the right measuring 12 mm in diameter. There is no evidence of acute disease in the visualized portion of the chest. The thyroid gland is within normal limits. There is some soft tissue swelling in the upper larynx particularly on the right side. IMPRESSION: Epiglottitis with right parapharyngeal abscess. Electronically signed by Skyler Alexander 05/27/2018 7:17 AM
--- NOTE | 2018-05-27 07:27 | INFECTIOUS DISEASE CONSULT REP ---
DATE: 05/26/2018 ADDENDUM: In view of the patient's history of recurrent infections and especially one as serious as epiglottitis with bacteremia, I think the patient may have an immunoglobulin deficiency. Because of that, I have ordered immunoglobulin levels. cc: Pablito Shook MD
[2018-05-27] MEDS: CELEXA PO SCH (08:15)
[2018-05-27] MEDS: LIBRIUM PO SCH ×3 (08:15→23:44)
[2018-05-27] MEDS: LOVENOX SUBQ SCH (08:15)
[2018-05-27] MEDS: PROTONIX IV SCH (08:15)
[2018-05-27 08:44] LABS: URINE SOURCE CATH
[2018-05-27 08:47] LABS: BILIRUBIN URINE NEGATIVE (NEGATIVE); BLOOD URINE NEGATIVE (NEGATIVE); COLOR STRAW; GLUCOSE URINE NEGATIVE (NEGATIVE); KETONE URINE TRACE mg/dL (NEGATIVE); LEUKOCYTES URINE NEGATIVE (NEGATIVE); NITRITE URINE NEGATIVE (NEGATIVE); PH URINE 6.5; PROTEIN URINE TRACE mg/dL (NEGATIVE); SP GRAVITY URINE 1.024; TURBIDITY URINE CLEAR (CLEAR); UROBILINOGEN URINE NORMAL (NORMAL)
[2018-05-27 08:48] LABS: UR EPITHELIAL CELLS <10 /HPF (<10); URINE BACTERIA NEGATIVE /HPF; URINE RBC <10 /HPF (<10); URINE WBC <10 /HPF (<10)
[2018-05-27] MEDS ORDERED: TOPROL XL PO SCH (09:00)
--- NOTE | 2018-05-27 09:04 | INFECTIOUS DISEASE PROGRESS NO ---
DATE: 05/27/2018 PRESENT ILLNESS: The patient has an epiglottitis complicated by a right parapharyngeal abscess. There are possibly other lesions that are present, the etiology of which is uncertain at this time. Patient may have an immunoglobin deficiency. MEDICATIONS: The patient is on a combination of vancomycin and cefepime. PHYSICAL EXAMINATION: Vital Signs: Temperature is 98 degrees, pulse 63, respirations 25, blood pressure 140/82. General: This is a somewhat ill-appearing, elderly female. She is in no acute distress. Head, eyes, ears, nose, and throat: She can hear my spoken words and see near objects. She talks in a hoarse voice. The patient's mandibular area is slightly tender but I do not feel any definite lymphadenopathy and there is no erythema of the skin. Lungs: Clear to auscultation. Cardiovascular: Heart rate is regular. Abdomen: Soft and nontender. Neurologic: The patient is awake. She can move her extremities. There is no tremor. LAB AND X-RAY: Patient's CT scan of the neck showed epiglottitis and a right parapharyngeal abscess. The patient's CBC shows a white count of 8790, hemoglobin 12.1, and platelet count of 262,000, creatinine 0.9 GFR is greater than 60. The patient's rapid strep test also was negative. ASSESSMENT: The patient has epiglottitis and parapharyngeal abscess. She has also a methicillin- resistant Staph aureus bacteremia which I think originates from her epiglottitis and a right parapharyngeal abscess. PLAN: To continue vancomycin as a single agent and discontinue cefepime. The patient may have an immunoglobulin deficiency and I am waiting for the results to come back from [facility]. If the IgG level is low, then I think the patient will need IVIG. Dr. Brunner is following the patient as well. PATIENT'S COMORBIDITIES: She smokes cigarettes and drinks alcoholic beverages but does not abuse drugs. cc: Pablito Shook MD MTDD
--- NOTE | 2018-05-27 13:48 | PROGRESS NOTE ---
DATE: 05/27/2018 The patient complained of headache. However, her right neck pain is improved. No airway complaints. No dysphagia. The patient had a CT scan last night which revealed edema of epiglottis with air and fluid accumulation laterally of parapharyngeal space. PHYSICAL EXAMINATION: The patient was not rescoped today. However, palpation of the neck reveals a reduction in tenderness of the right lateral neck. IMPRESSION: Epiglottitis, fluid accumulation with air of right parapharyngeal space. Endoscopy yesterday revealed epiglottitis with a possible lesion of the epiglottis down on to false cord on the right. PLAN: Immune workup underway. The patient on vancomycin, steroids tapering. We will repeat bedside endoscopy tomorrow to ascertain status epiglottis and possible lesion, right hemilarynx. cc: Zia Brunner MD
[2018-05-27] MEDS: OFIRMEV 1000 MG/ISOTONIC SOLN 1,000 MG/100 ML BOTTLE IV PRN (14:54)
[2018-05-27] MEDS ORDERED: MYLICON PO PRN (15:16)
--- NOTE | 2018-05-27 15:44 | ECHO REPORT ---
ORDER DATE: 05/27/2018 INTERPRETING PHYSICIAN: Dr. Quintero PROCEDURE: 2D echocardiogram. INDICATIONS: COPD and question of endocarditis. M-MODE MEASUREMENTS: Left ventricle end diastole: 4.7 cm. Left ventricle end systole: 2.6 cm. Posterior wall: 0.9 cm. Interventricular septum: 0.9 cm. Left atrium: 3.3 cm. Aortic diameter: 3.1 cm. SUMMARY OF 2-DIMENSIONAL IMAGIN. Left ventricular function is normal. Ejection fraction is 70%. No wall motion abnormality noted. 2. The right ventricle appears to be normal. 3. The aortic valve looks normal. Color flow mapping unremarkable. 4. The mitral valve looks normal. Color flow mapping unremarkable. 5. Pulsed wave Doppler of mitral inflow is normal. 6. Tissue Doppler of septal and lateral mitral annulus averages 11 cm. There is no diastolic dysfunction. 7. The aortic valve has three cusps. They open normally. Color flow mapping unremarkable. 8. Pulmonic valve looks normal. Color flow mapping unremarkable. 9. Tricuspid valve shows mild degree of regurgitation. 10.The inferior vena cava is at the upper limits of normal. 11.Pulmonary pressure is estimated to be in the range of 36 to 41 mmHg. 12.There is no pericardial effusion, mass or thrombus. CONCLUSIONS: In summary, this study shows: 1. Normal left ventricular systolic function. 2. Normal diastolic function. 3. No evidence of any significant valvular abnormality. 4. Pulmonary pressure of 36 to 41 mmHg. Clinical correlation is recommended. cc: MD Pablito Watts MD
[2018-05-27] MEDS: MUCOMYST 20% PO SCH ×2 (16:29→20:56)
[2018-05-27] MEDS ORDERED: KLONOPIN PO SCH (21:00)
[2018-05-28] MEDS: DECADRON IV SCH ×3 (00:45→21:03)
--- NOTE | 2018-05-28 03:47 | PROGRESS NOTE ---
DATE: 05/27/2018 SUBJECTIVE: The patient is confused this morning. She is only oriented to herself. She has been very restless overnight. OBJECTIVE: Vital Signs: Temperature 97.5 degrees, blood pressure 150/68, heart rate 61, respirations 18, O2 saturation 98% on room air. General: This is a chronically ill-appearing elderly female, lying in bed in no acute distress. Head: Normocephalic, atraumatic. Heart: S1, S2 normal. Regular rate and rhythm. Lungs: Clear to auscultation bilaterally. Abdomen: Positive bowel sounds. Soft, nontender, nondistended. Extremities: No edema, no cyanosis. Neurologic: The patient is oriented to self only. She is able to move all 4 extremities. LABORATORIES: White blood cell count 8.7, hemoglobin 12, hematocrit 34, platelets 262,000. Sodium 135, potassium 3.8, chloride 106, CO2 of 19, BUN 23, creatinine 0.9, glucose 107. ASSESSMENT AND PLAN: 1. Bacteremia secondary to methicillin-resistant Staphylococcus aureus. Continue with antibiotic therapy. 2. Acute epiglottitis with a right parapharyngeal abscess. Continue with antibiotic therapy. Further management as per ENT. 3. Alcohol withdrawal. We will start the patient on Librium and continue with p.r.n. Ativan. 4. Chronic obstructive pulmonary disease. Stable. Continue with bronchodilator therapy. 5. Gastrointestinal prophylaxis. Continue on Protonix. 6. Situational depression. Continue on Celexa. 7. Anxiety disorder. Continue with p.r.n. Ativan. 8. Deep vein thrombosis prophylaxis. Continue on Lovenox. cc: MD JACKELIN Mahajan
[2018-05-28] MEDS: OFIRMEV 1000 MG/ISOTONIC SOLN 1,000 MG/100 ML BOTTLE IV PRN (04:31)
[2018-05-28] MEDS: APRESOLINE IV PRN (05:26)
[2018-05-28 06:04] LABS: BASO# 0.01 X1000 (0.0-0.2); BASO% 0.1 % (0.0-0.8); EOS# 0.01 X1000 (0.0-0.7); EOS% 0.1 % (0.0-10.0); HEMATOCRIT 36.4 % (37.0-47.0); HEMOGLOBIN 12.8 g/dL (12.0-16.0); IMM GRAN# 0.04 X1000 (0.0-0.04); IMM GRAN% 0.5 % (0.0-0.5); LYMPH# 2.21 X1000 (1.2-3.4); LYMPH% 28.4 % (20.5-51.1); MCH 30.3 PG (27-31); MCHC 35.2 g/dL (33-37); MCV 86.1 FL (81-99); MONO# 0.86 X1000 (0.11-0.59); MPV 9.5 FL (7.4-10.4); NEUT# 4.66 X1000 (1.4-6.5); NEUT% 59.9 % (42.2-75.2); PLT 292 X1000 (130-400); RBC 4.23 XMIL (4.2-5.4); RDW 14.2 % (11.5-14.5); WBC 7.79 X1000 (4.8-10.8)
[2018-05-28] MEDS: PROTONIX IV SCH (06:15)
[2018-05-28 06:49] LABS: AGAP 9; BUN 16 mg/dL (8-22); CALCIUM 8.5 mg/dL (8.8-10.2); CHLORIDE 104 mmol/L (98-107); COSMO 272; CREATININE 0.9 mg/dL (0.5-0.9); ESTIMATED GFR > 60; GLUCOSE 83 mg/dL (70-104); POTASSIUM 3.2 mmol/L (3.5-5.1); SODIUM 136 mmol/L (136-145); TCO2 23 mmol/L (25-35)
[2018-05-28] MEDS: LIBRIUM PO SCH ×3 (07:48→22:43)
[2018-05-28] MEDS: FIORICET PO PRN ×4 (07:48→21:03)
[2018-05-28] MEDS ORDERED: POTASSIUM CHLORIDE 60 MEQ in NS 500 ML IV ONE (08:17)
[2018-05-28] MEDS: LOVENOX SUBQ SCH (09:01)
[2018-05-28] MEDS: CELEXA PO SCH (09:01)
[2018-05-28] MEDS: MUCOMYST 20% PO SCH (09:04)
[2018-05-28] MEDS: NORVASC PO SCH ×2 (09:35→21:03)
--- NOTE | 2018-05-28 09:47 | INFECTIOUS DISEASE PROGRESS NO ---
DATE: 05/28/2018 PRESENT ILLNESS: The patient has an epiglottitis and right parapharyngeal abscess with an associated methicillin-resistant Staphylococcus aureus bacteremia. The patient's immunoglobulin levels are back. The IgG was 691. This is so close to the normal, which starts at 700. The level is so minimally less than the normal of 700 that I do not think clinically it is significant and does not merit giving the patient IVIG. MEDICATIONS: The patient is on vancomycin as a single agent. PHYSICAL EXAMINATION: Vital Signs: Temperature is 97.6 degrees, pulse 65, respirations 23, blood pressure 138/67. General: This is a somewhat ill-appearing, elderly female. She is in no acute distress. She tells me that she is feeling better today with less pain in her throat area and less difficulty eating. Head, Eyes, Ears, Nose, and Throat: She can hear my spoken words and see near objects. I do not see any erythema in the throat area. In the submandibular area, there is no swelling or tenderness. Neck: No pain with movement of the neck. Lungs: Clear to auscultation. Cardiovascular: Regular heart rate. Abdomen: Soft and nontender. Neurologic: The patient is alert. She can move her extremities. There is no tremor. Integument: No rash noted. LAB AND X-RAY: There is no new radiographic study. The patient's CBC today shows a white count of 7790, hemoglobin 12.8, and platelet count 292,000. Creatinine is 0.9. GFR is greater than 60. IgG is 691, IgA is 144. ASSESSMENT AND PLAN: The patient has a methicillin-resistant Staphylococcus aureus bacteremia originating from the patient's epiglottitis and parapharyngeal abscess. She has only a minimal decrease in her IgG level and clinically it is not causing any immunodeficiency and it does not deserve giving the patient IVIG. I have ordered repeat blood cultures, however, to see hopefully that the bacteremia is negative. Dr. Brunner is following the patient as well. COMORBIDITIES: Cigarette smoking and consumption of alcoholic beverages. cc: Pablito Shook MD
[2018-05-28] MEDS ORDERED: KLOR-CON PO ONE (09:49)
[2018-05-28] MEDS: VANCOMYCIN 1,100 MG in NS 250 ML IV SCH (10:41)
--- NOTE | 2018-05-28 11:36 | Diag Imaging Result Doc PS360 ---
CT HEAD W/O CONTRAST - 05/28/2018 INDICATION: encephalopathy COMPARISON: None FINDINGS: The ventricles and sulci are normal in size and contour. No intracranial mass or hemorrhage. There is some mild periventricular white matter chronic microvascular disease. The skull is intact. The sinuses, mastoids, and middle ears are clear. IMPRESSION: Mild cerebral white matter chronic microvascular disease. This exam was performed using automated exposure control, adjustment of mA or kV according to patient size, and/or use of iterative reconstruction technique Electronically signed by Shad Salmeron 05/28/2018 11:34 AM
--- NOTE | 2018-05-28 12:19 | PROGRESS NOTE ---
DATE: 05/28/2018 SUBJECTIVE: The patient states throat continues to improve and feels better today. Would like to advance diet. No airway complaints. Denies neck tenderness. PHYSICAL EXAMINATION: Flexible Fiberoptic Examination: Mild edema of epiglottis, still more erythema, right epiglottis on the supraglottis with possible eschar. True vocal cords clean, mobile. Airway stable and intact. Neck: No appreciable adenopathy. No tenderness. IMPRESSION: Continued clinical improvement with resolution of the right neck tenderness. CT scan from 2 days ago revealed epiglottitis with air and fluid collection in right lateral pharyngeal space. Resolving epiglottitis, right lateral pharyngeal space abscess by CT. Clinically has improved. PLAN: I do not feel pharyngeal space abscess drainage is clinically indicated with the patient's continued improvement. I would like to go ahead and taper off steroids. With fiberoptic laryngeal exam results today, I still have a certain suspicion that she may have a right epiglottic/supraglottic lesion with a history of tobacco and alcohol abuse also. Will follow. May end up needing direct laryngoscopy with biopsy at [facility]. cc: Zia Brunner MD
--- NOTE | 2018-05-28 16:24 | PROGRESS NOTE ---
DATE: 05/28/2018 SUBJECTIVE: The patient is resting comfortably in bed. She is alert and oriented. She states that she feels a lot better today. OBJECTIVE: Vital signs: Temperature 98.6, blood pressure 126/72, heart rate 71, respirations 20. O2 sat is 98% on room air. General: This is a chronically ill-appearing female lying in bed in no acute distress. HEENT: Head normocephalic, atraumatic. Heart: S1, S2 normal, regular rate and rhythm. Lungs: Equal air entry bilaterally, no wheezing, no rales, no rhonchi. Abdomen: Positive bowel sounds, soft, nontender, nondistended. Extremities: No edema, no cyanosis. Neurological: The patient is alert and oriented x3. LABS: Potassium 3.2, sodium 136, BUN 16, creatinine 0.9. White blood count 7.7. ASSESSMENT AND PLAN: 1. Bacteremia secondary to methicillin-resistant Staphylococcus aureus. Continue on the current antibiotic regimen instructed by Dr. Shook. 2. Epiglottitis with a right parapharyngeal space abscess. The patient has improved clinically. Will continue with management as directed by ENT. 3. Possible epiglottic/subglottic lesion. ENT is following and may refer the patient to [facility] for a biopsy. 4. Chronic obstructive pulmonary disease. Continue with bronchodilator therapy. 5. Alcohol withdrawal. Continue on Librium. 6. Situational depression. Continue on Celexa. 7. GI prophylaxis. Continue on Protonix. 8. DVT prophylaxis. Continue on Lovenox. 9. Will consult Physical Therapy. cc: MD JACKELIN Mahajan
[2018-05-29] MEDS: APRESOLINE IV PRN (03:32)
[2018-05-29] MEDS: PROTONIX IV SCH ×2 (05:30→06:00)
[2018-05-29 06:20] LABS: AGAP 9; BUN 18 mg/dL (8-22); CALCIUM 8.4 mg/dL (8.8-10.2); CHLORIDE 104 mmol/L (98-107); COSMO 265; CREATININE 0.8 mg/dL (0.5-0.9); ESTIMATED GFR > 60; GLUCOSE 108 mg/dL (70-104); POTASSIUM 4.5 mmol/L (3.5-5.1); SODIUM 131 mmol/L (136-145); TCO2 18 mmol/L (25-35)
[2018-05-29 07:50] LABS: BASO# 0.05 X1000 (0.0-0.2); BASO% 0.6 % (0.0-0.8); EOS# 0.03 X1000 (0.0-0.7); EOS% 0.4 % (0.0-10.0); HEMATOCRIT 37.8 % (37.0-47.0); HEMOGLOBIN 13.1 g/dL (12.0-16.0); IMM GRAN% 1.2 % (0.0-0.5); LYMPH% 29.7 % (20.5-51.1); MCH 31.2 PG (27-31); MCHC 34.7 g/dL (33-37); MONO# 1.01 X1000 (0.11-0.59); MPV 9.9 FL (7.4-10.4); NEUT# 4.74 X1000 (1.4-6.5); NEUT% 56.1 % (42.2-75.2); PLT 238 X1000 (130-400); RDW 14.8 % (11.5-14.5); WBC 8.43 X1000 (4.8-10.8)
[2018-05-29] MEDS: LIBRIUM PO SCH ×2 (08:22→16:47)
[2018-05-29] MEDS: NORVASC PO SCH ×2 (08:22→21:24)
[2018-05-29] MEDS: DECADRON IV SCH (08:22)
[2018-05-29] MEDS: LOVENOX SUBQ SCH (08:23)
[2018-05-29 08:26] LABS: BASO 2 % (0-1); LYMPHS 28 % (21-51); MONO 12 % (1-9); SEGS 54 % (42-75)
[2018-05-29] MEDS: FIORICET PO PRN ×2 (08:26→21:24)
[2018-05-29] MEDS: CELEXA PO SCH (08:26)
--- NOTE | 2018-05-29 08:28 | INFECTIOUS DISEASE PROGRESS NO ---
DATE: 05/29/2018 PRESENT ILLNESS: Patient has epiglottitis with a right parapharyngeal abscess. She also has an associated methicillin-resistant Staph aureus bacteremia. Her IgG was 691. MEDICATIONS: Patient is on vancomycin as a single agent. PHYSICAL EXAMINATION: Vital Signs: Temperature is 98.1 degrees, pulse 79, respirations 18, blood pressure 173/66. General: This is a somewhat ill-appearing elderly female. She is in no acute distress. Head/eyes/ears/nose/throat: She can hear my spoken words and see near objects. She does not have any swelling or pain in the submandibular area. Neck: There is no pain when she turns her head, and the neck is not swollen or tender either. Lungs: Clear to auscultation. Cardiovascular: Regular heart rate. Neurologic: Patient is alert. She can move her extremities. There is no tremor. LABORATORY AND X-RAY: Creatinine is 0.8. GFR is greater than 60. Repeat blood cultures are pending. There is no CBC for today. ASSESSMENT AND PLAN: The patient has methicillin-resistant Staphylococcus aureus bacteremia originating from the patient's epiglottitis and parapharyngeal abscess. I have drawn repeat blood cultures and, if they are negative, I would like to go ahead and have a PICC placed and then send the patient home on intravenous vancomycin. As regarding her minimally low IgG level, I do not think it is clinically significant and I do not think she needs IVIG. I plan to treat the patient for at least 14 days following when her first repeat blood cultures are sterile. I am going to check with Dr. Brunner, who is following the patient if it is okay if we send her home on intravenous vancomycin. I did tell the patient that it would be very important to stop cigarette smoking. COMORBIDITIES: The patient's comorbidities include the patient smokes cigarettes and drinks alcoholic beverages. cc: Pablito Shook MD
[2018-05-29] MEDS: VANCOMYCIN 1,100 MG in NS 250 ML IV SCH (11:19)
--- NOTE | 2018-05-29 14:45 | PROGRESS NOTE ---
DATE: 05/29/2018 SUBJECTIVE: The patient is resting comfortably. She does state that she feels better. OBJECTIVE: Vital Signs: Temperature 97.5 degrees, blood pressure 131/68, heart rate 82, respirations 18, O2 saturation is 100% on room air. General: This is an elderly female lying in bed, in no acute distress. Heart: S1, S2 normal. Regular rate and rhythm. Lungs: Clear to auscultation bilaterally. Abdomen: Positive bowel sounds. Soft, nontender, nondistended. Extremities: No edema. No cyanosis. Neurologic: The patient is alert and oriented. LABS: Reviewed. ASSESSMENT AND PLAN: 1. Bacteremia secondary to methicillin-resistant Staphylococcus aureus. Continue with antibiotic therapy. The patient will continue with IV antibiotics as outpatient. 2. Epiglottitis with a right parapharyngeal space abscess. The patient will follow up with ENT upon discharge. Continue with antibiotic therapy as directed by Dr. Shook. 3. Possible epiglottic/subglottic lesion. The patient will be referred to [facility] by Dr. Brunner. 4. Alcohol withdrawal. Continue on Librium. 5. Chronic obstructive pulmonary disease. Continue bronchodilator therapy. 6. Situational depression. Continue on Celexa. 7. Deep vein thrombosis prophylaxis. Continue on Lovenox. 8. Disposition. The patient should be stable for discharge home tomorrow with home health. cc: Madison Hawthorne MD
--- NOTE | 2018-05-29 17:52 | PROGRESS NOTE ---
The patient states she has had continued improvement. No neck or throat pain. No dysphagia. No odynophagia. She is for possible discharge in the morning on home IV vancomycin. On physical exam, there was no neck edema, induration, tenderness, or lymphadenopathy. She was not scoped today. IMPRESSION: Resolving epiglottitis, resolved. Parapharyngeal space abscess clinically. PLAN: Have discussed with the patient again the possibility of lesion of epiglottis. We will call her and arrange follow-up early next week in our office with probable referral to [facility] at that time if indicated. She knows to call before then if any questions or problems. cc: Zia Brunner MD
[2018-05-30] MEDS: LIBRIUM PO SCH ×3 (00:27→16:44)
[2018-05-30] MEDS: FIORICET PO PRN ×3 (03:40→13:20)
[2018-05-30] MEDS: PROTONIX IV SCH (06:23)
[2018-05-30] MEDS: NORVASC PO SCH (08:10)
[2018-05-30] MEDS: LOVENOX SUBQ SCH (08:11)
[2018-05-30] MEDS: CELEXA PO SCH (08:11)
[2018-05-30 08:20] LABS: AGAP 9; BUN 13 mg/dL (8-22); CALCIUM 8.7 mg/dL (8.8-10.2); CHLORIDE 102 mmol/L (98-107); COSMO 268; CREATININE 0.8 mg/dL (0.5-0.9); ESTIMATED GFR > 60; GLUCOSE 94 mg/dL (70-104); POTASSIUM 3.3 mmol/L (3.5-5.1); SODIUM 134 mmol/L (136-145); TCO2 23 mmol/L (25-35)
[2018-05-30] MEDS ORDERED: KLOR-CON PO ONE (08:29)
[2018-05-30 08:57] LABS: INR 0.82
[2018-05-30] MEDS ORDERED: NS 250 ML ONE (09:56)
[2018-05-30 12:32] VITALS: BP 127/67
[2018-05-30] MEDS: VANCOMYCIN 1,100 MG in NS 250 ML IV SCH (13:26)
--- NOTE | 2018-06-06 03:51 | DISCHARGE SUMMARY ---
ADMISSION DATE: 05/24/2018 DISCHARGE DATE: 05/30/2018 FINAL DISCHARGE DIAGNOSES: 1. Acute epiglottitis with a right parapharyngeal space abscess. 2. Bacteremia secondary to methicillin-resistant Staphylococcus aureus. 3. Suspected epiglottic/subglottic lesion. 4. Alcohol withdrawal. 5. Chronic obstructive pulmonary disease. 6. Situational depression. CONSULTATIONS: 1. ENT consultation with Dr. Brunner. 2. ID consultation with Dr. Pablito Shook. IMAGIN. Portable chest x-ray performed on 05/24/2018 that revealed no acute disease. 2. Soft tissue neck x-ray performed on 05/24/2018 that revealed epiglottitis. 3. Neck CT performed on 05/26/2018 that revealed epiglottitis with a right parapharyngeal abscess. 4. Echocardiogram performed on 05/27/2018 that revealed an ejection fraction of 70%. No pericardial effusion, mass or thrombus. No diastolic dysfunction. 5. Head CT performed on 05/28/2018 that revealed chronic microvascular disease. HOSPITAL COURSE: Ms Serrato is a 63-year-old female with a history of COPD, tobacco dependence and alcohol abuse, who presented to the ER from an outside facility with odynophagia and stridor. Upon arrival, a soft tissue neck x-ray was done that revealed epiglottitis. In light of this, the patient was admitted to the medical ICU and ENT was consulted. The patient was started on broad- spectrum antibiotics after cultures were obtained. The patient was seen by ENT and a bedside laryngoscopy was performed. It was recommended that the patient continue on antibiotics, steroids and supplemental oxygen. Slowly over the course of the hospitalization, the patient's severe odynophagia improved. However, her blood cultures came back positive for methicillin-resistant Staphylococcus aureus. Infectious Disease was consulted and it was recommended to continue the vancomycin. The patient continued to improve clinically. However, she started to exhibit confusion. After further questioning, the patient admitted to alcohol usage. The patient was then started on Ativan as needed and Librium. The patient continued to improve and was ultimately transferred out of the ICU. Physical therapy was consulted. A CT of the neck was done that revealed epiglottitis as well as a right parapharyngeal abscess. Another laryngoscopy was performed and it was noted that the patient was improving, but there was also epiglottic and subglottic lesions present. It was recommended by ENT that the patient be referred to [facility] upon discharge. The patient continued to improve clinically and Dr. Shook made arrangements for the patient to continue with the IV antibiotic therapy for at least the next 2 weeks and the patient would have instructions to follow up with Dr. Shook for further treatment discussion. A PICC line was placed prior to discharge and arrangements were made with the [employer] for the patient to receive IV vancomycin as outpatient. The patient was also advised to quit smoking and to quit drinking alcohol. The patient was also seen by Dr. Brunner, who stated that he would make arrangements for the patient to be referred to [facility] for further assessment of the lesions seen on laryngoscopy. DISCHARGE MEDICATIONS: 1. Norvasc 5 mg oral twice a day. 2. Vancomycin 1.1 g IV daily. 3. Fioricet 1 tablet oral every 4 hours p.r.n. for migraines. 4. Celexa 20 mg oral daily. 5. Toprol-XL 50 mg oral daily. DISCHARGE DIET: Low-sodium diet. ACTIVITY: As tolerated. FOLLOWUP INSTRUCTIONS: The patient will need to follow up with Dr. Brunner on 06/02/2018 at 2 p.m. The patient will need to follow up with Dr. Shook within 2 weeks. cc: Madison Hawthorne MD
== END 2018-05-30 17:14 | disposition home health service (06) | DRG 153 ==
LOC: DIRADM 12:03 → SUATTDRO 12:03 → 3N 13:10 → ICU 15:46 → 3S 05-28 15:18 → 4N 05-29 13:34
PROVIDERS: ATTEND Internal Medicine
CPT/HCPCS: 36569; 70360; 70450; 70491; 71010; 71045; 80048; 80053; 80202; 81001; 82784; 83036; 84443; 85025; 85610; 87040; 87077; 87081; 87186; 87430; 93005; 93010; 93306; 94761; 97161; A9270; C9113; J0131; J0360; J0692; J1100; J1170; J1650; J2060; J2310; J3370; J3480; J7030; J7040; J7050; Q9967; S0164